=== PATIENT | female | born 1940 | race Caucasian/White ===

== ENCOUNTER → 2017-01-27 | Outpatient (CLI) | payer BC ==
[~2017-01-27] MED LIST: ASCO100061 PO; ASPI81TA28 PO; BISO10TA14 PO; CALC500T PO; CHOL20007 PO; GLUC1CAP33 PO; INDO-22 PO; LOSA100T65 PO; SIMV20TA2 PO
[2017-01-27 15:02] VITALS: BP 154/79; PULSE 61; TEMP 36.8; O2SAT 99
--- NOTE | 2017-01-27 17:19 | Radiation Oncology Follow-Up ---
Radiation Oncology Follow-Up Date of Visit Jan 27, 2017. 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 Sepulveda is a 76 year old female who recently presented with abnormal mammogram on 07/28/2016 which revealed an asymmetry in the right breast and left breast. She subsequently underwent a bilateral diagnostic mammogram and targeted bilateral ultrasound on 08/11/2016 which revealed a persistent focal architectural distortion with possible associated mass in the lower inner right breast. The patient subsequently underwent a bilateral MRI of the breasts on which revealed: "IMPRESSION: ACR BI-RADS CATEGORY 4C: MODERATE SUSPICION FOR MALIGNANCY 1. There is focal architectural distortion identified in the 5:30 to 6:00 middle to posterior right breast with associated abnormal enhancement. This correlates with the focal mammographic distortion and is suspicious for malignancy. Further evaluation with an MRI guided biopsy is recommended. 2. There is also focal linear non-mass enhancement within the left breast retroareolar region that is indeterminate. Currently we are unable to perform bilateral breast MRI biopsy during the same appointment and would recommend biopsy of the right breast focal architectural distortion first, with possible MRI guided biopsy in the left breast pending right breast pathology results. 3. 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 The patient subsequently had a MRI guided biopsy of the left breast lesion on 10/14/2016 which revealed no evidence of cancer. The patient subsequently underwent a lumpectomy and sentinel lymph node biopsy on 10/28/[address] Mane Mcmullen and pathology revealed grade 3 ductal carcinoma in situ that measured up to 16 mm. Pathology revealed non-comedo necrosis present. The margins were negative and the closest margin was 3 mm. The sentinel lymph node was negative. The patient was seen in consultation by Dr. John Bauman for medical oncology who discussed no role for adjuvant imaging hormonal therapy due to the patient's ER/IL negative status. We are now seeing the patient in consultation to discuss the role of adjuvant radiation therapy. Overall, the patient is doing relatively well. She has healed up well from surgery. She underwent a CT simulation and was found to be a candidate for hypo- fractionation. Radiation was completed 12/29/2016 she received 5130 cGy. (Xochitl Keith PA-C) Interim History She's been doing well over this past month. She denies any changes to her breast. She denies any pain or tenderness. She has noted no masses or tenderness no change of the axilla. She's had no swelling of her arm. She has been seen by Dr. Bauman. She saw Dr. Mcmullen and has been discharged. She had no difficulty with her skin following the completion of treatment. She is currently not set up for follow-up mammography. (Xochitl Keith PA-C) Allergies Coded Allergies: Amlodipine (Verified Allergy, Unknown, edema, 10/28/16) Atorvastatin (Verified Allergy, Unknown, joint pain, 10/28/16) Lisinopril (Verified Allergy, Unknown, cough, 10/28/16) Louie (Verified Allergy, Unknown, rash, 10/28/16) Penicillins (Verified Allergy, Unknown, 10/28/16) Home Medications Scheduled Ascorbic Acid (Ascorbic Acid), 1 TAB PO DAILY Aspirin (Aspirin Ec), 81 MG PO DAILY Bisoprolol/Hctz (Ziac 10MG/6.25MG), 1 TAB PO DAILY Calcium Gluconate (Calcium Gluconate), 1 TAB PO DAILY Cholecalciferol (Vitamin D3), 1,000 MG PO DAILY Losartan Potassium (Cozaar), 100 MG PO DAILY Simvastatin (Zocor), 20 MG PO QPM Scheduled PRN Glucosamine-Chondroitin (Glucosamine & Chondroitin 500-400 mg), 1 CAP PO DAILY PRN for JOINT STIFFNESS Indomethacin (Indocin), 25 MG PO TID PRN for GOUT Review of Systems Gastrointestinal: Symptoms: WNL Oral: Symptoms: No Problems Respiratory: Symptoms: WNL Other Respiratory: Gets a dry cough once in a while Urinary: Symptoms: WNL Skin: Symptoms: No Problems Other Skin Symptoms: Patient developed "age spots" 3 on top of breast, 1 post breast Breast: Right Upper Arm Measurement: 26.8 Right Mid Arm Measurement: 23.0 Right Wrist Measurement: 15.2 Left Upper Arm Measurement: 26.8 Left Mid Arm Measurement: 22.5 Left Wrist Measurement: 15.0 Arm Dominence: Right (Xochitl Keith PA-C) Physical Exam Vital Signs Date Time Temp Pulse Resp B/P Pulse Ox O2 Delivery O2 Flow Rate FiO2 01/27/17 15:02 36.8 61 16 154/79 99 Fatigue: None General Appearance: no apparent distress Eyes: normal inspection, EOMI ENT: normal ENT inspection, hearing grossly normal Neck: supple, no adenopathy Respiratory/Chest: lungs clear, no respiratory distress, no accessory muscle use Breast: Breast examination reveals well-healed incisions of the right breast. There are no masses or tenderness and no axillary adenopathy. There are no skin retractions or nipple changes. Using the [place] score cosmesis she has a excellent outcome. Left breast showed no masses or tenderness and no axillary adenopathy. Cardiovascular: regular rate, rhythm, no gallop, no murmur Extremities: no pedal edema Neurologic/Psychiatric: no motor/sensory deficits, alert, normal mood/affect Skin: warm/dry Lymphatic: no adenopathy (Xochitl Keith PA-C) Assessment & Plan Plan: The patient was seen and examined by Dr. Solitario. She'll continue regular follow-up with Dr. Bauman and her primary care physician. We reviewed that she did have breast examinations twice a year. Today we completed a cancer survivorship care plan. A copy of the document was given to the patient. She is also given a survivorship booklet. Follow-up mammography was scheduled. These will be digital diagnostic mammograms. The right side will be done in 2 months and bilateral evaluation and 8 months. We asked her to return to our office in 6 months. She will call if she has a questions or concerns in the interim. (Xochitl Keith PA-C) I agree with note created by Xochitl Keith PA-C. I reviewed the patient's chart and information with her. I have examined and evaluated the patient. I reviewed relevant clinical information and answered the patient's and/or family' s questions. (Veeral. Solitario MD) Total Time In Follow-Up I spent 20 minutes speaking to the patient and performing examination. I spent 20 minutes reviewing information, preparing the survivorship document, and completing this note. (Xochitl Keith PA-C) I spent 5 minutes examining and counseling the patient. (Veeral. Solitario MD) Copy To John Bauman MD; Ludwig Gary M.D. Problem Qualifiers (1) Carcinoma in situ: Carcinoma in situ location: breast Carcinoma in situ of breast type: intraductal Laterality: right Qualified Codes: D05.11 - Intraductal carcinoma in situ of right breast
== END | disposition home or self-care (01) ==
LOC: C.ONC 14:45
PROVIDERS: ATTEND Physician Assistant Medical
DX: Z08 Encounter for follow-up examination after completed treatment for malignant neoplasm (principal); Z92.3 Personal history of irradiation; Z86.000 Personal history of in-situ neoplasm of breast

== ENCOUNTER → 2017-03-02 | Outpatient (CLI) | payer BC ==
[2017-03-02 14:41] LABS: BASO ABS # 0.07 K/uL (0-0.2); COMPLETE YES; EOS % 3.8 %; IG% 0.3 %; LYMPH % 9.2 %; LYMPH ABS # 0.63 K/uL (1.2-3.4); MEAN CELL VOLUME 94.9 fL (80-100); MEAN CORPUSCULAR HEMOGLOBIN 31.4 pg (25-34); MEAN CORPUSCULAR HGB CONC 33.1 g/dl (32-36); MEAN PLATELET VOLUME 9.9 fL (7.4-10.4); MONO % 10.8 %; NEUT % 74.9 %; PLATELET COUNT 247 K/uL (130-400); RED BLOOD COUNT 4.11 M/uL (4.2-5.4); WHITE BLOOD COUNT 6.87 K/uL (4.8-10.8)
[2017-03-02 15:03] LABS: BLOOD UREA NITROGEN 12 mg/dl (7-18); BUN/CREATININE RATIO 11.9 (10-20); CALCIUM 8.9 mg/dl (8.5-10.1); CARBON DIOXIDE 31 mmol/L (21-32); CHLORIDE 106 mmol/L (98-107); GLUCOSE 90 mg/dl (70-99); SODIUM 141 mmol/L (136-145)
[2017-03-02 15:08] LABS: ALB/GLOB RATIO 1.1 (0.9-2); ALKALINE PHOSPHATASE 125 U/L (45-117); ALT/SGPT 23 U/L (12-78); AST/SGOT 17 U/L (15-37)
== END | disposition home or self-care (01) ==
LOC: C.LABBC 09:23
PROVIDERS: ATTEND Internal Medicine Hematology & Oncology
DX: D05.11 Intraductal carcinoma in situ of right breast (principal)

== ENCOUNTER → 2017-03-31 | Outpatient (CLI) | payer BC ==
--- NOTE | 2017-03-31 15:11 | MAMMOGRAPHY REPORT ---
BILATERAL DIGITAL DIAGNOSTIC MAMMOGRAM TOMOSYNTHESIS WITH CAD: 03/31/2017 CLINICAL HISTORY: 77-year-old woman with a personal history of right breast DCIS status post breast conservation treatment, and benign MRI biopsy in the left breast. She presents for bilateral mammog david to establish new baseline. TECHNIQUE: Bilateral breast tomosynthesis in addition to standard 2D mammography was performed. Spo t magnification right CC and ML views were also obtained. Current study was also evaluated with a C omputer Aided Detection (CAD) system. COMPARISON: Comparison is made to exams dated: 10/28/2016 specimen, 10/28/2016 localization, 016 mammogram, 10/14/2016 MRI biopsy, 09/18/2016 mammogram, and 09/18/2016 MRI biopsy - [facility]. BREAST COMPOSITION: The tissue of both breasts is heterogeneously dense, which may obscure small ma sses. FINDINGS: There is expected architectural distortion, density and skin irregularity in the lower inn er quadrant of the right breast, at the site of prior lumpectomy. There is mild right breast skin t hickening most prominent inferiorly, and mild trabecular edema. There are benign rim calcifications in the right breast. No new suspicious mass, architectural distortion or cluster of microcalcifica tions is seen. There are stable post biopsy changes in the left breast, with metallic biopsy marker remaining in pl rishabh. Scattered benign-appearing microcalcifications. No new suspicious mass, architectural distorti on or cluster of microcalcifications is seen. IMPRESSION: ACR-BI-RADS CATEGORY 3: PROBABLY BENIGN 1. Expected post treatment changes in the right breast, without definite mammographic evidence of m alignancy bilaterally. Recommend diagnostic right mammograms and possible ultrasound in 6 months to ensure longer stability after treatment. 2. Also recommend a bilateral breast MRI in April 2017 to ensure stability post MRI guided biopsy in the left breast. These results and recommendations were discussed with the patient at the time of the exam. Approximately 10% of breast cancers are not detected with mammography. A negative mammographic repor t should not delay biopsy if a clinically suggestive mass is present. Rhonda Alvarado M.D. ay/:03/31/2017 14:52:48 Director Of Restaurants: Ilene WILEY(R)(Anastasia), [facility] letter sent: Follow Up Recommended 3 BI-RADS Code: ACR-BI-RADS Category 3: Probably Benign
== END | disposition home or self-care (01) ==
LOC: C.MAMM 12:50
PROVIDERS: ATTEND Physician Assistant Medical
DX: D05.11 Intraductal carcinoma in situ of right breast (principal); Z92.3 Personal history of irradiation

== ENCOUNTER → 2017-05-13 | Outpatient (CLI) | payer BC ==
[~2017-05-13] MED LIST changes: +GADAVIST IV PRN
--- NOTE | 2017-05-13 16:20 | MAMMOGRAPHY REPORT ---
BREAST MRI OF BOTH BREASTS : 05/13/2017 CLINICAL HISTORY: 77-year-old woman presents for a follow-up breast MRI. She has a history of right breast cancer and is 6 months status post breast conservation treatment in the right breast. History of benign left breast MRI guided biopsy in the retroareolar breast. This biopsy was performed in 2015. COMPARISON: Comparison is made to exams dated: 10/28/2016 specimen, 10/28/2016 localization, 10/14/20 16 mammogram, 10/14/2016 MRI biopsy, 09/18/2016 mammogram, and 09/18/2016 MRI biopsy - [facility]. TECHNIQUE: Using a 1.5 Deidre magnet and dedicated breast coil, multisequence axial images were obtain ed through the breasts. After uneventful IV administration of 6 mL of Gadavist, dynamic multiphase c ontrast-enhanced axial images, and sagittal postcontrast were obtained. Temporal subtraction axial i mages and 3-D MIP images are provided. Everything was then reviewed on a 3-D workstation, Archetypes. FINDINGS: There is evidence of prior surgery in the right breast, with a fluid collection in the 6:00 posterior and retroareolar right breast, at the site of prior lumpectomy. There is mild diffuse maryjane ma and skin thickening of the right breast, likely secondary to radiation therapy. No significant ba ckground parenchymal enhancement. No new suspicious enhancing mass, non-mass enhancement, unexpected architectural distortion or suspicious kinetics are seen in the right breast. There is no suspiciou s right axillary, subpectoral or internal mammary lymphadenopathy. There is mild background parenchymal enhancement of the left breast. Susceptibility artifact from th e metallic biopsy marker is seen in the 6:00 middle to anterior left breast, denoting the site of rachel or MRI biopsy which yielded benign pathology. Subtle linear non-mass enhancement is no longer seen a t the site of this biopsy, confirming adequate tissue sampling. No new suspicious enhancing mass, no n-mass enhancement, focal area of architectural distortion or suspicious kinetics is seen in the left breast. No suspicious left axillary, subpectoral or intramammary lymphadenopathy. IMPRESSION: ACR BI-RADS CATEGORY 2: BENIGN 1. Stable post-therapeutic changes in the right breast, without MRI evidence of malignancy. 2. Stable postbiopsy changes in the left breast, without MRI evidence of malignancy. 3. Continuation of close follow-up screening mammography after treatment is recommended. Consider a ddition of annual breast MRI for additional surveillance. The patient will receive written notification of the results. Rhonda Alvarado M.D. ay/:05/13/2017 15:19:53 [employer] Supervisor: travel director, [facility] letter sent: Normal 1/2 BI-RADS Code: ACR BI-RADS Category 2: Benign
== END | disposition home or self-care (01) ==
LOC: C.MRI 10:25
PROVIDERS: ATTEND Physician Assistant Medical
DX: D05.11 Intraductal carcinoma in situ of right breast (principal)

== ENCOUNTER → 2017-08-10 | Outpatient (CLI) | payer BC ==
[~2017-08-10] MED LIST changes: -GADAVIST IV PRN
[2017-08-10 14:13] VITALS: BP 139/78; PULSE 60; TEMP 36.5; O2SAT 100
--- NOTE | 2017-08-10 16:39 | Radiation Oncology Follow-Up ---
Radiation Oncology Follow-Up Date of Visit Aug 10, 2017. 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 Sepulveda is a 76 year old female who recently presented with abnormal mammogram on 07/28/2016 which revealed an asymmetry in the right breast and left breast. She subsequently underwent a bilateral diagnostic mammogram and targeted bilateral ultrasound on 08/11/2016 which revealed a persistent focal architectural distortion with possible associated mass in the lower inner right breast. The patient subsequently underwent a bilateral MRI of the breasts on which revealed: "IMPRESSION: ACR BI-RADS CATEGORY 4C: MODERATE SUSPICION FOR MALIGNANCY 1. There is focal architectural distortion identified in the 5:30 to 6:00 middle to posterior right breast with associated abnormal enhancement. This correlates with the focal mammographic distortion and is suspicious for malignancy. Further evaluation with an MRI guided biopsy is recommended. 2. There is also focal linear non-mass enhancement within the left breast retroareolar region that is indeterminate. Currently we are unable to perform bilateral breast MRI biopsy during the same appointment and would recommend biopsy of the right breast focal architectural distortion first, with possible MRI guided biopsy in the left breast pending right breast pathology results. 3. 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 The patient subsequently had a MRI guided biopsy of the left breast lesion on 10/14/2016 which revealed no evidence of cancer. The patient subsequently underwent a lumpectomy and sentinel lymph node biopsy on 10/28/[address] Mane Mcmullen and pathology revealed grade 3 ductal carcinoma in situ that measured up to 16 mm. Pathology revealed non-comedo necrosis present. The margins were negative and the closest margin was 3 mm. The sentinel lymph node was negative. The patient was seen in consultation by Dr. John Bauman for medical oncology who discussed no role for adjuvant imaging hormonal therapy due to the patient's ER/WV negative status. We are now seeing the patient in consultation to discuss the role of adjuvant radiation therapy. Overall, the patient is doing relatively well. She has healed up well from surgery. She underwent a CT simulation and was found to be a candidate for hypo- fractionation. Radiation was completed 12/29/2016 she received 5130 cGy Interim History She's been doing well over the past 6 months. She has occasional mild ache in the area of the axilla. She gives of some pain level II. This is noted in the morning and then quickly resolves. This does not require any prescriptive or nzzr-sss-cahjnbl pain medication. She is noted no masses no change of the axilla. She's had no swelling of her arm. She is up-to-date on mammography as well as MRIs. Allergies Coded Allergies: Amlodipine (Verified Allergy, Unknown, edema, 10/28/16) Atorvastatin (Verified Allergy, Unknown, joint pain, 10/28/16) Lisinopril (Verified Allergy, Unknown, cough, 10/28/16) Louie (Verified Allergy, Unknown, rash, 10/28/16) Penicillins (Verified Allergy, Unknown, 10/28/16) Home Medications Scheduled Aspirin (Aspirin Ec), 81 MG PO DAILY Bisoprolol/Hctz (Ziac 10MG/6.25MG), 1 TAB PO DAILY Cholecalciferol (Vitamin D3), 1,000 MG PO DAILY Losartan Potassium (Cozaar), 100 MG PO DAILY Simvastatin (Zocor), 20 MG PO QPM Scheduled PRN Glucosamine-Chondroitin (Glucosamine & Chondroitin 500-400 mg), 1 CAP PO DAILY PRN for JOINT STIFFNESS Indomethacin (Indocin), 25 MG PO TID PRN for GOUT Review of Systems Gastrointestinal: Symptoms: WNL Oral: Symptoms: No Problems Respiratory: Symptoms: WNL Urinary: Symptoms: WNL Skin: Symptoms: No Problems Breast: Right Upper Arm Measurement: 28.0 Right Mid Arm Measurement: 24.0 Right Wrist Measurement: 15.0 Left Upper Arm Measurement: 27.0 Left Mid Arm Measurement: 23.0 Left Wrist Measurement: 14.8 Arm Dominence: Right Physical Exam Vital Signs Date Time Temp Pulse Resp B/P (MAP) Pulse Ox O2 Delivery O2 Flow Rate FiO2 08/10/17 14:13 36.5 60 16 139/78 100 Fatigue: None General Appearance: no apparent distress Eyes: normal inspection, EOMI ENT: normal ENT inspection, hearing grossly normal Neck: no adenopathy, thyroid normal Respiratory/Chest: lungs clear, no respiratory distress, no accessory muscle use Breast: Breast examination reveals well-healed incisions of the right breast. There are no masses or tenderness and no axillary adenopathy. There are no skin retractions or nipple changes. Using the Wilton score cosmesis she has a in excellent outcome. Left breast showed no masses or tenderness and no axillary adenopathy. Abdomen: non tender Extremities: no pedal edema Neurologic/Psychiatric: no motor/sensory deficits, alert, normal mood/affect Skin: warm/dry Lymphatic: no adenopathy Laboratory Studies Test 07/30/17 14:07 White Blood Count 8.22 K/uL (4.8-10.8) Red Blood Count 4.01 M/uL (4.2-5.4) Hemoglobin 12.2 g/dL (12.0-16.0) Hematocrit 36.5 % (37-47) Mean Corpuscular Volume 91.0 fL (80-100) Mean Corpuscular Hemoglobin 30.4 pg (25-34) Mean Corpuscular Hemoglobin Concent 33.4 g/dl (32-36) Platelet Count 281 K/uL (130-400) Mean Platelet Volume 9.6 fL (7.4-10.4) Neutrophils (%) (Auto) 74.6 % Lymphocytes (%) (Auto) 11.1 % Monocytes (%) (Auto) 9.9 % Eosinophils (%) (Auto) 3.6 % Basophils (%) (Auto) 0.7 % Neutrophils # (Auto) 6.13 K/uL (1.4-6.5) Lymphocytes # (Auto) 0.91 K/uL (1.2-3.4) Monocytes # (Auto) 0.81 K/uL (0.11-0.59) Eosinophils # (Auto) 0.30 K/uL (0-0.5) Basophils # (Auto) 0.06 K/uL (0-0.2) RDW Standard Deviation 42.3 fL (36.4-46.3) RDW Coefficient of Variation 12.6 % (11.5-14.5) Immature Granulocyte % (Auto) 0.1 % Immature Granulocyte # (Auto) 0.01 K/uL (0.00-0.02) Sodium Level 139 mmol/L (136-145) Potassium Level 3.8 mmol/L (3.5-5.1) Chloride Level 105 mmol/L (98-107) Carbon Dioxide Level 28 mmol/L (21-32) Anion Gap 6.0 mmol/L (3-11) Blood Urea Nitrogen 16 mg/dl (7-18) Creatinine 0.76 mg/dl (0.60-1.20) Estimated GFR () 88.9 Estimated GFR (Non- 76.7 BUN/Creatinine Ratio 20.9 (10-20) Random Glucose 121 mg/dl (70-99) Calcium Level 9.5 mg/dl (8.5-10.1) Total Bilirubin 0.4 mg/dl (0.2-1) Aspartate Amino Transferase (AST) 16 U/L (15-37) Alanine Aminotransferase (ALT) 19 U/L (12-78) Alkaline Phosphatase 124 U/L (45-117) Lactate Dehydrogenase 173 U/L (84-246) Total Protein 6.5 gm/dl (6.4-8.2) Albumin 3.5 gm/dl (3.4-5.0) Globulin 3.0 gm/dl (2.5-4.0) Albumin/Globulin Ratio 1.2 (0.9-2) Additional Studies Patient: Anastasia SEPULVEDA [facility] Rec: [id number] Address1: [address] Address2: Acct ID: [id number] Date: 1940 Sex: F Ref Phy: Ludwig Gary M.D. Att Phy: Xochitl Keith PA-C Savannah Phy: Ludwig Gary M.D. Inter Phy: Rhonda Alvarado MD [facility]: [place] [address] SC: C.MAMM Report #: [id number] Research Administrator: MARKY Diagnosis: HX OF RT BREAST CA S/P RADIATION Service Date: 03/31/17 MNE: [id number] Ordering Dr: Xochitl Keith PA-C CC: Xochitl Keith PA-C CONF: DICTATED BY: Rhonda Alvarado MD MAMMOGRAPHY REPORT BILATERAL DIGITAL DIAGNOSTIC MAMMOGRAM TOMOSYNTHESIS WITH CAD: 03/31/2017 CLINICAL HISTORY: 77-year-old woman with a personal history of right breast DCIS status post breast conservation treatment, and benign MRI biopsy in the left breast. She presents for bilateral mammograms to establish new baseline. TECHNIQUE: Bilateral breast tomosynthesis in addition to standard 2D mammography was performed. Spot magnification right CC and ML views were also obtained. Current study was also evaluated with a Computer Aided Detection (CAD ) system. COMPARISON: Comparison is made to exams dated: 10/28/2016 specimen, 10/28/2016 localization, 10/14/2016 mammogram, 10/14/2016 MRI biopsy, 09/18/2016 mammogram, and 09/18/2016 MRI biopsy - [facility]. BREAST COMPOSITION: The tissue of both breasts is heterogeneously dense, which may obscure small masses. FINDINGS: There is expected architectural distortion, density and skin irregularity in the lower inner quadrant of the right breast, at the site of prior lumpectomy. There is mild right breast skin thickening most prominent inferiorly, and mild trabecular edema. There are benign rim calcifications in the right breast. No new suspicious mass, architectural distortion or cluster of microcalcifications is seen. There are stable post biopsy changes in the left breast, with metallic biopsy marker remaining in place. Scattered benign-appearing microcalcifications. No new suspicious mass, architectural distortion or cluster of microcalcifications is seen. IMPRESSION: ACR-BI-RADS CATEGORY 3: PROBABLY BENIGN 1. Expected post treatment changes in the right breast, without definite mammographic evidence of malignancy bilaterally. Recommend diagnostic right mammograms and possible ultrasound in 6 months to ensure longer stability after treatment. 2. Also recommend a bilateral breast MRI in April 2017 to ensure stability post MRI guided biopsy in the left breast. These results and recommendations were discussed with the patient at the time of the exam. Approximately 10% of breast cancers are not detected with mammography. A negative mammographic report should not delay biopsy if a clinically suggestive mass is present. Rhonda Alvarado M.D. ay/:03/31/2017 14:52:48 Spring Intern: Ilene BLANTON)(Anastasia), [facility] letter sent: Follow Up Recommended 3 BI-RADS Code: ACR-BI-RADS Category 3: Probably Benign Dictated by: Rhonda Alvarado MD Signed by: Rhonda Alvarado MD Patient: Anastasia SEPULVEDA [facility] Rec: [id number] Address1: [address] Address2: Acct ID: [id number] Date: 1940 Sex: F Ref Phy: Xochitl Keith PA-C Att Phy: Xochitl Keith PA-C Savannah Phy: Ludwig Gary M.D. Inter Phy: Rhonda Alvarado MD [facility]: [place] [address] SC: C.MRI Report #: [id number] Research Administrator: TERESE Diagnosis: HX BREAST CA Service Date: 05/13/17 MNE: [id number] Ordering Dr: Xochitl Keith PA-C CC: Xochitl Keith PA-C CONF: DICTATED BY: Rhonda Alvarado MD MAMMOGRAPHY REPORT BREAST MRI OF BOTH BREASTS : 05/13/2017 CLINICAL HISTORY: 77-year-old woman presents for a follow-up breast MRI. She has a history of right breast cancer and is 6 months status post breast conservation treatment in the right breast. History of benign left breast MRI guided biopsy in the retroareolar breast. This biopsy was performed in October 2016. COMPARISON: Comparison is made to exams dated: 10/28/2016 specimen, 10/28/2016 localization, 10/14/2016 mammogram, 10/14/2016 MRI biopsy, 09/18/2016 mammogram, and 09/18/2016 MRI biopsy - [facility]. TECHNIQUE: Using a 1.5 Deidre magnet and dedicated breast coil, multisequence axial images were obtained through the breasts. After uneventful IV administration of 6 mL of Gadavist, dynamic multiphase contrast-enhanced axial images, and sagittal postcontrast were obtained. Temporal subtraction axial images and 3-D MIP images are provided. Everything was then reviewed on a 3-D workstation, [employer]. FINDINGS: There is evidence of prior surgery in the right breast, with a fluid collection in the 6:00 posterior and retroareolar right breast, at the site of prior lumpectomy. There is mild diffuse edema and skin thickening of the right breast, likely secondary to radiation therapy. No significant background parenchymal enhancement. No new suspicious enhancing mass, non-mass enhancement , unexpected architectural distortion or suspicious kinetics are seen in the right breast. There is no suspicious right axillary, subpectoral or internal mammary lymphadenopathy. There is mild background parenchymal enhancement of the left breast. Susceptibility artifact from the metallic biopsy marker is seen in the 6:00 middle to anterior left breast, denoting the site of prior MRI biopsy which yielded benign pathology. Subtle linear non-mass enhancement is no longer seen at the site of this biopsy, confirming adequate tissue sampling. No new suspicious enhancing mass, non-mass enhancement, focal area of architectural distortion or suspicious kinetics is seen in the left breast. No suspicious left axillary, subpectoral or intramammary lymphadenopathy. IMPRESSION: ACR BI-RADS CATEGORY 2: BENIGN 1. Stable post-therapeutic changes in the right breast, without MRI evidence of malignancy. 2. Stable postbiopsy changes in the left breast, without MRI evidence of malignancy. 3. Continuation of close follow-up screening mammography after treatment is recommended. Consider addition of annual breast MRI for additional surveillance. The patient will receive written notification of the results. Rhonda Alvarado M.D. ay/:05/13/2017 15:19:53 Spring Intern: spot washer, [facility] letter sent: Normal 1/2 BI-RADS Code: ACR BI-RADS Category 2: Benign Dictated by: Rhonda Alvarado MD Signed by: Rhonda Alvarado MD Assessment & Plan Plan: Continue with scheduled mammography. She has a mammogram scheduled for September of the right breast. There is been recommendation for continued annual MRI. This will be due after May 13. An order was written and this will be scheduled. Continue regular follow-up with the primary care physician and Dr. Bauman. She was seen and examined by Dr. Solitario. We asked her to return to our office in 1 year. She may call if she has any questions or concerns in the interim. Assessment & Plan (Attending) ADDENDUM: I agree with note created by Xochitl Keith PA-C. I reviewed the patient's chart and information with her. I have examined and evaluated the patient. I reviewed relevant clinical information and answered the patient's and /or family's questions. NUTTER UP Total Time In Follow-Up I spent 20 minutes speaking to the patient and performing examination. I spent 15 minutes reviewing information in completing this note. AK Total Time (Attending) In Follow-Up I spent 15 minutes examining and counseling the patient. NUTTER UP Copy To John Bauman MD; Ludwig Gary M.D. Problem Qualifiers (1) Carcinoma in situ: Carcinoma in situ location: breast Carcinoma in situ of breast type: intraductal Laterality: right Qualified Codes: D05.11 - Intraductal carcinoma in situ of right breast
== END | disposition home or self-care (01) ==
LOC: C.ONC 14:05
PROVIDERS: ATTEND Physician Assistant Medical
DX: Z08 Encounter for follow-up examination after completed treatment for malignant neoplasm (principal); Z92.3 Personal history of irradiation; Z85.3 Personal history of malignant neoplasm of breast

== ENCOUNTER → 2017-09-29 | Outpatient (CLI) | payer BC ==
[~2017-09-29] MED LIST changes: -ASCO100061 PO; -CALC500T PO
--- NOTE | 2017-10-01 08:15 | MAMMOGRAPHY REPORT ---
BILATERAL DIGITAL DIAGNOSTIC MAMMOGRAM TOMOSYNTHESIS WITH CAD: 09/29/2017 CLINICAL HISTORY: 77-year-old woman presents for evaluation of both breasts. She has a personal hist ory of right breast cancer status post lumpectomy performed 10/28/2016 and subsequent radiation thera py. Benign MRI guided biopsy in the left breast. TECHNIQUE: Bilateral breast tomosynthesis in addition to standard 2D mammography was performed. Curre nt study was also evaluated with a Computer Aided Detection (CAD) system. COMPARISON: Comparison is made to exams dated: 03/31/2017 mammogram, 10/28/2016 specimen, 10/28/2016 localization, 10/14/2016 mammogram, 09/18/2016 mammogram, and 08/11/2016 mammogram - [facility]. BREAST COMPOSITION: The tissue of both breasts is heterogeneously dense, which may obscure small mas ses. FINDINGS: A linear scar marker overlies the lower inner posterior right breast, denoting the skin carin gical scar from prior surgery. There is expected architectural distortion at the lumpectomy bed. No unexpected architectural distortion, obvious new mass, asymmetry or suspicious microcalcifications a re seen in the right breast. There is mild diffuse skin thickening, likely related to prior treatmen t. A few benign rim calcifications. There is a stable dumbbell-shaped biopsy marker clip in the central left breast. A few scattered janiya ign-appearing microcalcifications. No new suspicious mass, architectural distortion or cluster of mi crocalcifications is seen in the left breast. IMPRESSION: ACR-BI-RADS CATEGORY 3: PROBABLY BENIGN Stable posttreatment changes in the right breast and stable postbiopsy changes in left breast. No de finite mammographic evidence of malignancy bilaterally. Recommend bilateral diagnostic tomosynthesis mammograms in 2017, to reassess postsurgical and postbiopsy changes and ensure stability, a nd the patient will also be due for annual breast MRI for additional surveillance around the same macario e. These results and recommendations were discussed with the patient at the time of the exam. She tenta tively scheduled the follow-up appointments prior to leaving our department. Approximately 10% of breast cancers are not detected with mammography. A negative mammographic report should not delay biopsy if a clinically suggestive mass is present. Rhonda Alvarado M.D. ay/:09/29/2017 12:46:42 [employer]: Ilene Delacruz RT(R)(M), [facility] letter sent: Follow Up Recommended 3 BI-RADS Code: ACR-BI-RADS Category 3: Probably Benign
== END | disposition home or self-care (01) ==
LOC: C.MAMM 10:16
PROVIDERS: ATTEND Physician Assistant Medical
DX: Z08 Encounter for follow-up examination after completed treatment for malignant neoplasm (principal); Z85.3 Personal history of malignant neoplasm of breast; Z92.3 Personal history of irradiation; Z98.890 Other specified postprocedural states

== ENCOUNTER 2017-12-17 12:56 | Emergency (ER) | payer BC ==
[~2017-12-17] VITALS: Ht 154.9 cm; Wt 64.0 kg
[~2017-12-17 12:56] MED LIST changes: -BISO10TA14 PO; -SIMV20TA2 PO
[2017-12-17 13:01] VITALS: TEMP 36.4; Ht 154.9 cm; Wt 64.0 kg
[2017-12-17 13:31] VITALS: O2SAT 100
[2017-12-17] MEDS ORDERED: CZR50 PO (13:37)
[2017-12-17] MEDS ORDERED: OMEP40CA41 PO (13:39)
[2017-12-17] MEDS ORDERED: HYG/25 PO (13:39)
[2017-12-17 13:53] LABS: BASO % 1.2 %; BASO ABS # 0.09 K/uL (0-0.2); EOS ABS # 0.55 K/uL (0-0.5); HEMATOCRIT 31.5 % (37-47); HEMOGLOBIN 9.8 g/dL (12.0-16.0); IG# 0.01 K/uL (0.00-0.02); LYMPH % 12.5 %; LYMPH ABS # 0.98 K/uL (1.2-3.4); MEAN CELL VOLUME 79.7 fL (80-100); MEAN CORPUSCULAR HEMOGLOBIN 24.8 pg (25-34); MEAN CORPUSCULAR HGB CONC 31.1 g/dl (32-36); MEAN PLATELET VOLUME 9.5 fL (7.4-10.4); MONO % 10.4 %; MONO ABS # 0.81 K/uL (0.11-0.59); NEUT % 68.8 %; NEUT ABS # 5.38 K/uL (1.4-6.5); PLATELET COUNT 310 K/uL (130-400); RED CELL DISTRIBUTION WIDTH SD 40.9 fL (36.4-46.3); WHITE BLOOD COUNT 7.82 K/uL (4.8-10.8)
--- NOTE | 2017-12-17 13:53 | DIAGNOSTIC IMAGING REPORT ---
CHEST 2 VIEWS ROUTINE CLINICAL HISTORY: Shortness of breath COMPARISON STUDY: No previous studies for comparison. FINDINGS: The cardiac and mediastinal contours are normal. There is no evidence of focal pulmonary consolidation. There is no evidence of failure. No pleural effusions are visualized.[ A 5 mm right apical opacity is felt to represent a summation. Surgical clips project over the right breast. IMPRESSION: No active disease in the chest. Electronically signed by: Fred Atkinson M.D. 12/17/2017 1:52 PM Dictated Date/Time: 12/17/2017 1:51 PM
[2017-12-17 14:04] LABS: INR 0.9 (0.9-1.1); PTT PATIENT 20.6 SECONDS (21.0-31.0)
[2017-12-17 14:10] LABS: BLOOD UREA NITROGEN 18 mg/dl (7-18); CALCIUM 9.3 mg/dl (8.5-10.1); CARBON DIOXIDE 29 mmol/L (21-32); CREATININE 0.88 mg/dl (0.60-1.20); GLUCOSE 109 mg/dl (70-99); POTASSIUM 3.4 mmol/L (3.5-5.1); SODIUM 137 mmol/L (136-145)
[2017-12-17] MEDS ORDERED: OPTIRAY 320 IV PRN (14:15)
--- NOTE | 2017-12-17 14:38 | DIAGNOSTIC IMAGING REPORT ---
CT ANGIOGRAM OF THE CHEST CLINICAL HISTORY: Shortness of breath and elevated d-dimer COMPARISON STUDY: Chest x-ray dated to TECHNIQUE: Following the IV administration of 81 mL of Optiray-320, CT angiogram of the thorax was performed from the thoracic inlet to the lung bases utilizing the pulmonary embolus protocol. Images are reviewed in the axial, sagittal, and coronal planes. IV contrast was administered without complication. MIP imaging was performed. A dose lowering technique was utilized adhering to the principles of ALARA. CT DOSE: 230.61 mGy.cm FINDINGS: No pathologically enlarged axillary mediastinal or hilar lymph nodes were visualized. There was no evidence of thoracic aortic dilatation. There were no pulmonary artery filling defects to indicate acute pulmonary embolism. No pleural effusions are visualized. There is pulmonary emphysema. There is an 11 mm groundglass right apical pulmonary nodule. There is a prominent hiatal hernia. IMPRESSION: 1. No evidence of acute pulmonary embolism 2. Pulmonary emphysema 3. 11 mm groundglass right upper lobe pulmonary nodule. 3-[address] follow-up is recommended. Please refer to below summary of Fleischner criteria recommendations for follow-up of incidental CT nodules (Bg Taylor, Guidelines for management of small pulmonary nodules detected on CT scans: A statement from the Fleischner Society, Radiology 237: [phone].) SOLID NODULES Solitary nodule size: <6 mm * low risk patients: no follow-up needed * high risk patients: optional CT at 12 months Solitary nodule size: 6-8 mm * low risk patients: follow-up at 6-12 months, then consider further follow-up at 18-24 months * high risk patients: initial follow-up CT at 6-12 months and then at 18-24 months if no change Solitary nodule size: >8 mm * either low or high risk patients - consider follow-up CT at 3 months, and/or CT-PET, and/or biopsy Multiple nodules size: <6 mm * low risk patients: no routine follow-up * high risk patients: optional CT at 12 months Multiple nodules size: 6-8 mm * low risk patients: follow-up at 3-6 months, then consider further follow-up at 18-24 months * high risk patients: follow-up at 3-6 months, then at 18-24 months if no change Multiple nodules size: >8 mm * low risk patients: follow-up at 3-6 months, then consider further follow-up at 18-24 months * high risk patients: follow-up at 3-6 months, then at 18-24 months if no change Note: newly detected indeterminate nodule in persons 35 years of age or older. * low risk patients: minimal or absent history of smoking and/or other known risk factors * high risk patients: history of smoking or of other known risk factors (e.g. first degree relative with lung cancer, or exposure to asbestos, radon, uranium) * if a nodule up to 8 mm is partly solid or is ground glass further follow-up is required after 24 months to exclude possible slow growing adenocarcinoma (EDDI) SUBSOLID NODULES Solitary pure ground-glass nodule * nodule size <6 mm - no CT follow-up required * nodule size >=6 mm - follow-up CT at 6-12 months, then every 2 years until 5 years Solitary part-solid nodule * nodule size <6 mm - no CT follow-up required * nodule size >=6 mm - follow-up CT at 3-6 months. If unchanged, and solid component remains <6 mm, then annual follow-up for 5 years Multiple subsolid nodules * nodule size <6 mm - follow-up CT at 3-6 months, consider further follow-up at 2 and 4 years if stable * nodule size >=6 mm - follow-up CT at 3-6 months, subsequent management based on the most suspicious nodule(s) Electronically signed by: Fred Atkinson M.D. 12/17/2017 2:37 PM Dictated Date/Time: 12/17/2017 2:32 PM
[2017-12-17] MEDS ORDERED: BISO10TA14 PO (17:40)
[2017-12-17] MEDS ORDERED: SIMV20TA2 PO (17:40)
--- NOTE | 2017-12-17 17:54 | EMERGENCY ROOM VISIT NOTE ---
History Report prepared by Eron: Liz Benedict Under the Supervision of: Dr. Severiano Moreno M.D. First contact with patient: 13:10 Chief Complaint: ABNORMAL LABS Stated Complaint: LOW HEMOGLOBIN, BLEEDING, SLIDING HERNIA W/EROSIM History of Present Illness The patient is a 77 year old female who presents to the Emergency Room with complaints of persistent black stools starting 2-3 days ago. The patient was sent to the ED by Dr. Hua, her professor of french. She reports SOB and fatigue with going up the steps which she has never experienced before. She has had a dry cough. She denies any chest pain or LOC. She did take some Pepto Bismol yesterday. She has been putting more pillows behind her back for reflux. She is on low dose aspirin. She denies any recent travel, hormone use, or recent surgery. The patient has a history of anemia. She states that her hemoglobin is down to 9 from 14 one year ago. She had an endoscopy last week which showed a sliding hiatal hernia with lesions. She had a stool sample tested which was fine. She has a history of breast CA which was contained. She had a lumpectomy and radiation. Source of History: patient Onset: 2-3 days ago Position: other (global) Quality: other (black stools) Timing: other (persistent) Associated Symptoms: + SOB, + abdominal pain, + fatigue, No LOC, No chest pain Review of Systems See HPI for pertinent positives and negatives. A total of ten systems were reviewed and were otherwise negative. Past Medical & Surgical Medical Problems: (1) Carcinoma in situ (2) Hypertension Family History Heart disease Hypertension Social History Smoking Status: Never Smoker Marital Status: Housing Status: lives with significant other Occupation Status: retired Current/Historical Medications Scheduled Bisoprolol/Hctz (Ziac 10MG/6.25MG), 1 TAB PO DAILY Chlorthalidone (Hygroton), 25 MG PO DAILY Cholecalciferol (Vitamin D3), 1,000 MG PO DAILY Losartan Potassium (Losartan Potassium), 50 MG PO DAILY Omeprazole (Prilosec), 40 MG PO BID Simvastatin (Zocor), 20 MG PO QPM Allergies Coded Allergies: Amlodipine (Verified Allergy, Unknown, edema, 12/17/17) Atorvastatin (Verified Allergy, Unknown, joint pain, 12/17/17) Lisinopril (Verified Allergy, Unknown, cough, 12/17/17) S[place]akwa (Verified Allergy, Unknown, rash, 12/17/17) Penicillins (Verified Allergy, Unknown, 12/17/17) Physical Exam Vital Signs Date Time Temp Pulse Resp B/P (MAP) Pulse Ox O2 Delivery O2 Flow Rate FiO2 12/17/17 17:58 65 18 158/78 100 12/17/17 17:10 64 12/17/17 16:45 63 141/76 100 12/17/17 15:08 65 18 131/80 100 Room Air 12/17/17 13:38 64 12/17/17 13:31 100 Room Air 12/17/17 13:01 36.4 64 18 157/65 100 Room Air Physical Exam Physical Exam GENERAL: She is oriented to person, place, and time. She appears well- developed and well-nourished. She does not appear distressed. ____ HENT: Exam performed. Head: Normocephalic and atraumatic. Right Ear: External ear normal. No mastoid tenderness. Left Ear: External ear normal. No mastoid tenderness. Mouth/Throat: The oropharynx is clear and moist. No trismus in the jaw. No dental abscesses or uvula swelling. No oropharyngeal exudate or tonsillar abscesses. ____ EYES: Conjunctivae and EOM are normal. Pupils are equal, round, and reactive to light. Right eye exhibits no discharge. Left eye exhibits no discharge. No scleral icterus. ____ NECK: Normal range of motion. Neck supple. No JVD present. No spinous process tenderness present. No carotid bruit present. No rigidity. No tracheal deviation and normal range of motion present. No Brudzinski's sign and no Kernig 's sign noted. ____ CV: Normal rate, regular rhythm, normal heart sounds and intact distal pulses. There is no peripheral edema. Palpable radial pulses bue. ____ PULM/CHEST: Effort normal and breath sounds normal. No respiratory distress. No stridor. She has no wheezes. She has no rales. Chest Wall: She exhibits no tenderness. ____ ABD: The abdomen is soft. Bowel sounds are normal. She has no distension. No mass is present. There is no tenderness. There is no rebound, no guarding, no Campos's sign and no tenderness at McBurney's point. Rovsig negative RECTAL: No bright red blood per rectum. Hemoccult negative. MUSC/SKEL: Normal range of motion. There is no peripheral edema, tenderness or deformity. LYMPH: No cervical adenopathy. ____ NEURO: She is alert and oriented to person, place, and time. She has normal strength. No cranial nerve deficit or sensory deficit. Coordination and gait normal. GCS eye subscore is 4. GCS verbal subscore is 5. GCS motor subscore is 6. cerbellar tests wnl. ____ SKIN: Skin is warm and dry. She is not diaphoretic. ____ PSYCH: She has a normal mood and affect. Her behavior is normal. Judgment and thought content normal. ____ Medical Decision & Procedures ER Provider Diagnostic Interpretation: Xray results as stated below per my and radiologist interpretation. Radiology results as stated below per my review and radiologist interpretation: CHEST 2 VIEWS ROUTINE CLINICAL HISTORY: Shortness of breath COMPARISON STUDY: No previous studies for comparison. FINDINGS: The cardiac and mediastinal contours are normal. There is no evidence of focal pulmonary consolidation. There is no evidence of failure. No pleural effusions are visualized.[ A 5 mm right apical opacity is felt to represent a summation. Surgical clips project over the right breast. IMPRESSION: No active disease in the chest. Electronically signed by: Fred Atkinson M.D. 12/17/2017 1:52 PM Dictated Date/Time: 12/17/2017 1:[address] ANGIOGRAM OF THE CHEST CLINICAL HISTORY: Shortness of breath and elevated d-dimer COMPARISON STUDY: Chest x-ray dated to 91 TECHNIQUE: Following the IV administration of 81 mL of [id number]-320, CT angiogram of the thorax was performed from the thoracic inlet to the lung bases utilizing the pulmonary embolus protocol. Images are reviewed in the axial, sagittal, and coronal planes. IV contrast was administered without complication. MIP imaging was performed. A dose lowering technique was utilized adhering to the principles of ALARA. CT DOSE: 230.61 mGy.cm FINDINGS: No pathologically enlarged axillary mediastinal or hilar lymph nodes were visualized. There was no evidence of thoracic aortic dilatation. There were no pulmonary artery filling defects to indicate acute pulmonary embolism. No pleural effusions are visualized. There is pulmonary emphysema. There is an 11 mm groundglass right apical pulmonary nodule. There is a prominent hiatal hernia. IMPRESSION: 1. No evidence of acute pulmonary embolism 2. Pulmonary emphysema 3. 11 mm groundglass right upper lobe pulmonary nodule. 3-[address] follow-up is recommended. Please refer to below summary of Fleischner criteria recommendations for follow-up of incidental CT nodules (Bg Taylor, Guidelines for management of small pulmonary nodules detected on CT scans: A statement from the Fleischner Society, Radiology 237: [phone].) SOLID NODULES Solitary nodule size: <6 mm * low risk patients: no follow-up needed * high risk patients: optional CT at 12 months Solitary nodule size: 6-8 mm * low risk patients: follow-up at 6-12 months, then consider further follow-up at 18-24 months * high risk patients: initial follow-up CT at 6-12 months and then at 18-24 months if no change Solitary nodule size: >8 mm * either low or high risk patients - consider follow-up CT at 3 months, and/or CT-PET, and/or biopsy Multiple nodules size: <6 mm * low risk patients: no routine follow-up * high risk patients: optional CT at 12 months Multiple nodules size: 6-8 mm * low risk patients: follow-up at 3-6 months, then consider further follow-up at 18-24 months * high risk patients: follow-up at 3-6 months, then at 18-24 months if no change Multiple nodules size: >8 mm * low risk patients: follow-up at 3-6 months, then consider further follow-up at 18-24 months * high risk patients: follow-up at 3-6 months, then at 18-24 months if no change Note: newly detected indeterminate nodule in persons 35 years of age or older. * low risk patients: minimal or absent history of smoking and/or other known risk factors * high risk patients: history of smoking or of other known risk factors (e.g. first degree relative with lung cancer, or exposure to asbestos, radon, uranium) * if a nodule up to 8 mm is partly solid or is ground glass further follow-up is required after 24 months to exclude possible slow growing adenocarcinoma (EDDI) SUBSOLID NODULES Solitary pure ground-glass nodule * nodule size <6 mm - no CT follow-up required * nodule size >=6 mm - follow-up CT at 6-12 months, then every 2 years until 5 years Solitary part-solid nodule * nodule size <6 mm - no CT follow-up required * nodule size >=6 mm - follow-up CT at 3-6 months. If unchanged, and solid component remains <6 mm, then annual follow-up for 5 years Multiple subsolid nodules * nodule size <6 mm - follow-up CT at 3-6 months, consider further follow-up at 2 and 4 years if stable * nodule size >=6 mm - follow-up CT at 3-6 months, subsequent management based on the most suspicious nodule(s) Electronically signed by: Fred Atkinson M.D. 12/17/2017 2:37 PM Dictated Date/Time: 12/17/2017 2:32 PM Laboratory Results 12/17/17 13:35 Red Blood Count 3.95, Mean Corpuscular Volume 79.7, Mean Corpuscular Hemoglobin 24.8, Mean Corpuscular Hemoglobin Concent 31.1, Mean Platelet Volume 9.5, Neutrophils (%) (Auto) 68.8, Lymphocytes (%) (Auto) 12.5, Monocytes (%) (Auto) 10.4, Eosinophils (%) (Auto) 7.0, Basophils (%) (Auto) 1.2, Neutrophils # (Auto ) 5.38, Lymphocytes # (Auto) 0.98, Monocytes # (Auto) 0.81, Eosinophils # (Auto ) 0.55, Basophils # (Auto) 0.09 12/17/17 13:35 Test 12/17/17 13:35 12/17/17 16:29 White Blood Count 7.82 K/uL (4.8-10.8) Red Blood Count 3.95 M/uL (4.2-5.4) Hemoglobin 9.8 g/dL (12.0-16.0) Hematocrit 31.5 % (37-47) Mean Corpuscular Volume 79.7 fL (80-100) Mean Corpuscular Hemoglobin 24.8 pg (25-34) Mean Corpuscular Hemoglobin Concent 31.1 g/dl (32-36) Platelet Count 310 K/uL (130-400) Mean Platelet Volume 9.5 fL (7.4-10.4) Neutrophils (%) (Auto) 68.8 % Lymphocytes (%) (Auto) 12.5 % Monocytes (%) (Auto) 10.4 % Eosinophils (%) (Auto) 7.0 % Basophils (%) (Auto) 1.2 % Neutrophils # (Auto) 5.38 K/uL (1.4-6.5) Lymphocytes # (Auto) 0.98 K/uL (1.2-3.4) Monocytes # (Auto) 0.81 K/uL (0.11-0.59) Eosinophils # (Auto) 0.55 K/uL (0-0.5) Basophils # (Auto) 0.09 K/uL (0-0.2) RDW Standard Deviation 40.9 fL (36.4-46.3) RDW Coefficient of Variation 14.0 % (11.5-14.5) Immature Granulocyte % (Auto) 0.1 % Immature Granulocyte # (Auto) 0.01 K/uL (0.00-0.02) Prothrombin Time 9.9 SECONDS (9.0-12.0) Prothromb Time International Ratio 0.9 (0.9-1.1) Activated Partial Thromboplast Time 20.6 SECONDS (21.0-31.0) Partial Thromboplastin Ratio 0.8 D-Dimer 580 ug/L FEU (0-500) Anion Gap 4.0 mmol/L (3-11) Est Creatinine Clear Calc Drug Dose 47.3 ml/min Estimated GFR () 74.5 Estimated GFR (Non- 64.3 BUN/Creatinine Ratio 20.7 (10-20) Calcium Level 9.3 mg/dl (8.5-10.1) Pro-B-Type Natriuretic Peptide 238 pg/ml (0-900) Troponin I < 0.015 ng/ml (0-0.045) Laboratory results reviewed by me ECG Indication: SOB/dyspnea Rate (beats per minute): 62 Rhythm: sinus rhythm Findings: no acute ischemic change, no ectopy, other (ND, QRS, and QTc wnl, no ST elevation or ST depression) Change: Patient's electrocardiogram was interpreted by me. ED Course 1319: The patient was evaluated in room B2. A complete history and physical exam was performed. 1614: Vital signs stable. Labs show hemoglobin 9.4. Patient is not actively bleeding, it is thought that her black stools were due to Pepto-Bismol. Hemoccult negative. Troponin and proBNP within normal limits. D-dimer elevated , CT of the chest showed no PE did show multiple lung nodules. I discussed the patient's case with Dr. Hua, [facility] cardiology. I offered to keep the patient under observation for rule out ACS and serial troponins including stress. He recommends a repeat troponin and discharge home if negative. She will be scheduled for outpatient stress test next week. Attempt to make the patient's PCP aware of the lung nodules, her office was closed. Patient states she will follow-up with PCP about the lung nodules if discharge. 1750: Repeat troponin negative. DISCHARGE - Plan of care discussed with patient and questions answered. The patient was given both verbal and printed discharge instructions. The patient verbalized understanding and ability to comply. The patient is to seek outpatient follow up as noted in the discharge instructions. The patient verbalized understanding and ability to comply. The patient is discharged in stable condition. The patient was instructed to return for worsening symptoms. Medical Decision 1614: Vital signs stable. Labs show hemoglobin 9.4. Patient is not actively bleeding, it is thought that her black stools were due to Pepto-Bismol. Hemoccult negative. 2 sets of troponin and proBNP within normal limits. D- dimer elevated, CT of the chest showed no PE did show multiple lung nodules. I discussed the patient's case with Dr. Hua, [facility] cardiology. I offered to keep the patient under observation for rule out ACS and serial troponins including stress. He recommends a repeat troponin and discharge home if negative. She will be scheduled for outpatient stress test next week. Attempt to make the patient's PCP aware of the lung nodules, her office was closed. Patient states she will follow-up with PCP about the lung nodules if discharge. Medication Reconcilliation Current Medication List: was personally reviewed by me Blood Pressure Screening Patient's blood pressure: Elevated blood pressure Blood pressure disposition: Referred to PCP Consults Time Called: 1548 Consulting Physician: Dr. Hua, [facility] cardiology Returned Call: 1614 I discussed the patient's case with him. I offered to keep the patient under observation for rule out ACS and serial troponins including stress. He recommends a repeat troponin and discharge home if negative. She will be scheduled for outpatient stress test next week. Impression Primary Impression: Anemia Additional Impressions: Dyspnea Lung nodule Scribe Attestation The scribe's documentation has been prepared under my direction and personally reviewed by me in its entirety. I confirm that the note above accurately reflects all work, treatment, procedures, and medical decision making performed by me. The chart was completed utilizing [employer] voice recognition software. Grammatical errors, random word insertions, pronoun errors, and incomplete sentences are an occasional consequence of this system due to software limitations, ambient noise, and hardware issues. Any formal questions or concerns about the content, text, or information contained within the body of this dictation should be directly addressed to the physician for clarification. Departure Information Dispostion Home / Self-Care Referrals Sonido Hua, Ludwig Allen M.D. Forms HOME CARE DOCUMENTATION FORM, IMPORTANT VISIT INFORMATION, WORK / SCHOOL INSTRUCTIONS Patient Instructions My [facility] Additional Instructions Follow-up with your PCP and cardiology on Wednesday. Return to the emergency department if you develop chest pain, blood in his stools, blood in your urine, or your symptoms worsen Problem Qualifiers Primary Impression: Anemia Anemia type: unspecified type Qualified Codes: D64.9 - Anemia, unspecified Additional Impressions: Dyspnea Dyspnea type: unspecified Qualified Codes: R06.00 - Dyspnea, unspecified
[2017-12-17 17:58] VITALS: BP 158/78; PULSE 65; O2SAT 100
== END 2017-12-17 17:59 | disposition home or self-care (01) ==
LOC: C.EDB 12:58
DX: D64.9 Anemia, unspecified (principal); R06.00 Dyspnea, unspecified; R91.8 Other nonspecific abnormal finding of lung field; K21.9 Gastro-esophageal reflux disease without esophagitis; K44.9 Diaphragmatic hernia without obstruction or gangrene; I10 Essential (primary) hypertension; Z88.8 Allergy status to other drugs, medicaments and biological substances; Z91.018 Allergy to other foods; Z88.0 Allergy status to penicillin; Z85.3 Personal history of malignant neoplasm of breast; Z82.49 Family history of ischemic heart disease and other diseases of the circulatory system

== ENCOUNTER → 2017-12-29 | Outpatient (CLI) | payer BC ==
[~2017-12-29] MED LIST changes: -ASPI81TA28 PO; +BISO10TA14 PO; +CZR50 PO; -GLUC1CAP33 PO; +HYG/25 PO; -INDO-22 PO; -LOSA100T65 PO; +OMEP40CA41 PO; +SIMV20TA2 PO
--- NOTE | 2017-12-29 15:11 | DIAGNOSTIC IMAGING REPORT ---
PET/CT CLINICAL HISTORY: Solitary pulmonary nodule. Breast cancer. TECHNIQUE: A PET/CT was performed from the skull base through the upper thighs following intravenous injection of 11.05 mCi of F 18 FDG IV. The injection was performed at 10:01 AM on December 29, 2017 and imaging began at 11:06 AM on December 29, 2017. Unenhanced CT was performed for attenuation correction purposes and anatomic localization. COMPARISON STUDY: Chest CT December 17, 2017. FINDINGS: Head and neck: No abnormal FDG uptake is identified within the neck. There is no cervical lymphadenopathy. Chest: No enlarged axillary, mediastinal or hilar lymph nodes are present. The heart is moderately enlarged. A large hiatal hernia with partially intrathoracic stomach is unchanged. There are postoperative findings within the right breast, including a 5 x 1.6 cm hyperdense suspected fluid collection within the posterior aspect of the right breast which has no FDG uptake. This favors a seroma cavity. There is mild asymmetric radiotracer uptake within the right breast without focal uptake. Note is made of a 1.1 cm groundglass nodule within the apical segment of the right upper lobe which is unchanged since CT of December 17, 2017. This has mild FDG uptake with an SUV max of 2.4. There has been interval development of minimal airspace opacity within the lingula with mild FDG uptake since prior chest CT of December 17, 2017. Abdomen and Pelvis: There is no abnormal FDG uptake within the abdomen or the pelvis. There is no lymphadenopathy. There is a diverticulum of the second portion of the duodenum. There is colonic diverticulosis without evidence for acute diverticulitis. A right hepatic lobe cyst is noted. Musculoskeletal: No suspicious skeletal uptake is identified. IMPRESSION: 1. Mild FDG uptake within the 1.1 cm groundglass nodule within the apical segment of the right upper lobe. This nodule is unchanged since CT of December 17, 2017. The appearance is highly suggestive of a neoplasm, likely within the adenocarcinoma spectrum. The appearance is not typical for metastatic disease. 2. Post therapeutic changes within the right breast, including a 5 x 1.6 cm seroma. Mild asymmetric radiotracer uptake within the right breast with mild skin thickening is likely post therapeutic. 3. Interval development of minimal airspace opacity within the lingula since chest CT of December 17, 2017 consistent with a mild infectious process. Electronically signed by: Alex Moon M.D. 12/29/2017 3:09 PM Dictated Date/Time: 12/29/2017 12:26 PM
== END | disposition home or self-care (01) ==
LOC: C.PET 09:08
PROVIDERS: ATTEND Family Medicine
DX: R91.1 Solitary pulmonary nodule (principal); C50.919 Malignant neoplasm of unspecified site of unspecified female breast; D64.9 Anemia, unspecified

== ENCOUNTER → 2018-02-21 | Outpatient (CLI) | payer BC ==
[~2018-02-21] MED LIST changes: +GADAVIST IV PRN
--- NOTE | 2018-02-22 07:47 | MAMMOGRAPHY REPORT ---
BREAST MRI OF BOTH BREASTS : 02/21/2018 CLINICAL HISTORY: 77-year-old woman with a personal history of right breast cancer status post breast conservation treatment, presents for additional MRI surveillance. She reports tenderness in the rig ht breast. Abnormal tumor markers. COMPARISON: Comparison is made to exams dated: 09/29/2017 mammogram, 05/13/2017 breast MRI, 10/28/2016 specimen, 10/28/2016 localization, 10/14/2016 mammogram, and 10/14/2016 MRI biopsy - [facility]. TECHNIQUE: Using a 1.5 Deidre magnet and dedicated breast coil, multisequence axial images were obtain ed through the breasts. After uneventful IV administration of 6 mL of Gadavist, dynamic multiphase c ontrast-enhanced axial images, and sagittal postcontrast were obtained. Temporal subtraction axial i mages and 3-D MIP images are provided. Everything was then reviewed on a 3-D workstation, [employer]. FINDINGS: Right breast: There is no significant background parenchymal enhancement. There is evidence of prior treatment in the right breast with expected mild diffuse skin thickening and trabecular edema. Ther e is also edema of the right pectoralis musculature. There is a fluid collection at the surgical sit e in the 6:00 far posterior right breast measuring approximately 23 x 12 x 39 mm, compatible with an evolving hematoma/postsurgical seroma. There is a stable 5 mm intramammary lymph node in the upper o uter quadrant of the right breast. No new suspicious enhancing masses, non-mass enhancement, unexpec silvano architectural distortion or suspicious kinetics identified in the right breast. No new suspiciou s right axillary, subpectoral or internal mammary lymphadenopathy. Left breast: There is no significant background parenchymal enhancement. There is a focus of suscept ibility artifact in the 6:00 anterior left breast, denoting the site of prior benign MRI guided biops y. No new suspicious masses, non-mass enhancement, architectural distortion or suspicious kinetics i dentified in the left breast. No suspicious left axillary, subpectoral or internal mammary lymphaden opathy. Incidental note is made of a 10 mm T2 hyperintense nonenhancing cyst in the visualized right hepatic lobe. There is also a hiatal hernia seen on the 3 plane localizing sequence. IMPRESSION: ACR BI-RADS CATEGORY 2: BENIGN 1. Expected postsurgical and posttreatment changes in the right breast, without MRI evidence of karan gnancy. 2. Expected postbiopsy changes in the left breast, without MRI evidence of malignancy. 3. No suspicious axillary, subpectoral or internal mammary lymphadenopathy bilaterally. 4. Incidentally noted right hepatic lobe 10 mm cyst and hiatal hernia. The patient will receive written notification of the results. Rhonda Alvarado M.D. ay/:02/21/2018 20:55:50 Emergency Manager: rigger supervisor, [facility] letter sent: Normal 1/2 BI-RADS Code: ACR BI-RADS Category 2: Benign
== END | disposition home or self-care (01) ==
LOC: C.MRI 10:39
PROVIDERS: ATTEND Internal Medicine Hematology & Oncology
DX: D05.11 Intraductal carcinoma in situ of right breast (principal); R97.8 Other abnormal tumor markers

== ENCOUNTER → 2018-05-31 | Outpatient (CLI) | payer BC ==
[~2018-05-31] MED LIST changes: -GADAVIST IV PRN
== END | disposition home or self-care (01) ==
LOC: C.MAMM 13:06
PROVIDERS: ATTEND Family Medicine
DX: M85.851 Other specified disorders of bone density and structure, right thigh (principal); M85.852 Other specified disorders of bone density and structure, left thigh

== ENCOUNTER 2019-05-26 08:45 | Inpatient (IN) ==
--- NOTE | 2019-04-21 15:43 | PAT Medication Instructions ---
Medication Instructions Date of Service April 21, 2019 Home Medications aspirin 81 mg PO QAM bisoprolol-hydrochlorothiazide [Ziac] 1 tab PO QPM chlorthalidone 25 mg PO QAM cholecalciferol (vitamin D3) 2,000 unit PO QAM losartan 50 mg PO QAM omeprazole 40 mg PO QAM simvastatin 20 mg PO PM DO NOT take the morning of surgery chlorthalidone 25 mg PO QAM cholecalciferol (vitamin D3) 2,000 unit PO QAM losartan 50 mg PO QAM Take morning of surgery With a small sip of water, OTHERWISE NOTHING TO EAT OR DRINK AFTER MIDNIGHT: aspirin 81 mg PO QAM omeprazole 40 mg PO QAM Take evening before surgery bisoprolol-hydrochlorothiazide [Ziac] 1 tab PO QPM simvastatin 20 mg PO PM Other Notes If you have any questions please call us at [phone] or [phone] or [phone] or [phone]
--- NOTE | 2019-04-24 11:03 | Anesthesiology Consultation ---
Date of Service April 24, 2019 Assessment & Plan (1) Encounter for pre-operative examination: Cardiology (Javid) 04/18/19 = "From my standpoint, she is doing well...she is exercising on a regular basis and with her anemia resolved and pneumonia treated, she feels like she normally does. She gardens on a regular basis and feels well." [RTO 1 yr] Chart Review Chart Review: Acceptable Risk for Surgery and Patient seen in Pre Admission Testing Teaching & Discussion Instructed NPO after midnight before surgery, except medications with 15 cc of water. Medication instructions provided according to the PAT guidelines. History Surgery Operation Date: 05/26/19 10:05 Proposed Procedures p Right Reverse Shoulder Replacement - Josué Monaco, Height/Weight Height: 5 ft 1.5 in Weight: 63 kg Allergies Allergy/AdvReac Type Severity Reaction Status Date / Time amlodipine Allergy Unknown edema Verified 04/18/19 11:48 atorvastatin Allergy Unknown joint pain Verified 04/18/19 11:48 lisinopril Allergy Unknown cough Verified 04/18/19 11:48 buck Allergy Unknown rash Verified 08/09/18 14:00 Penicillins Allergy Unknown ? RASH Verified 04/18/19 11:48 CHILD Medications Home Medications Medication Instructions Recorded Confirmed Last Taken aspirin 81 mg PO QAM 04/18/19 04/18/19 Unknown bisoprolol-hydrochlorothiazide 1 tab PO QPM 04/18/19 04/18/19 Unknown [Ziac] chlorthalidone 25 mg PO QAM 04/18/19 04/18/19 Unknown cholecalciferol (vitamin D3) 2,000 unit PO QAM 04/18/19 04/18/19 Unknown [Vitamin D3] losartan 50 mg PO QAM 04/18/19 04/18/19 Unknown omeprazole 40 mg PO QAM 04/18/19 04/18/19 Unknown simvastatin 20 mg PO PM 04/18/19 04/18/19 Unknown Past Medical History Medical History Bicuspid aortic valve No on 12/06/17 echo. Mild-mod AI. Diverticular disease H/O: CVA (cerebrovascular accident) Pt recalls symptoms ~1974 but not known stroke until noted on brain imaging a few years ago. Hiatal hernia History of anemia Hx of breast cancer RIGHT, S/P LUMPECTOMY, CHEMO AND RADIATION, 2016 Hyperlipidemia Hypertension PFO (patent foramen ovale) Pulmonary nodule MONITORED YEARLY WITH CT Torn rotator cuff RIGHT Exercise / Class Metabolic Activity II 4-5 Yardwork/Stairs/Walk up hill (Denies CP or SOB with stairs, goes to the gym 3x per week) Past Surgical History Surgical History History of bunionectomy of right great toe History of colonoscopy History of lumpectomy of right breast Hx of hysterectomy TOTAL Past Anesthesia History No Hx of Anesthesia Complications and No Family Hx of Anesthesia Complications History of PONV No Hx of PONV and No Hx of Motion Sickness Social History Smoking Status: Former smoker tobacco type: cigarettes Do You Dip or Chew Tobacco: No Smoking End Date: REMOTE HX, "SOCIALLY" LONG TIME AGO Hx Alcohol Use: Yes Alcohol type: wine alcohol intake frequency: 0-2 drinks per day Alcohol Intake Frequency Comment: WITH DINNER Hx Substance Use: No Review of Systems Pt denies any recent chest pain, shortness of breath, palpitations, cough, fever or URI. Physical Exam Vital Signs BP: 124/61 P: 58bpm SPO2: 97% RA T: 97.8 R: 16 ENMT Mouth: + dental restorations (few crowns); no chipped teeth and no loose teeth Thyromental Distance: > or= 3.5 Finger Breadths (3.5) Mallampati Class: II (narrow posterior orpharynx but uvula fully visible) Neck normal visual inspection; neck extension not limited Respiratory normal respiratory effort Auscultation: lungs clear to auscultation bilaterally Prolonged expiratory phase Cardiovascular Rate/Rhythm: regular rate and regular rhythm Heart Sounds: no murmur Vessels: no carotid bruit Extremities: no edema Testing Laboratory Results 04/24/19 11:35 04/24/19 11:35 PT 10.1 Seconds (9.0-12.0) 04/24/19 11:35 INR 1.0 (0.9-1.1) 04/24/19 11:35 APTT 23.1 Seconds (21.0-31.0) 04/24/19 11:35 Blood Type O Positive 04/24/19 11:35 Antibody Screen NEGATIVE 04/24/19 11:35 Electrocardiogram Date: 04/19/19 Findings: + NSR @ (67) Chest X-Ray Date: 04/24/19 Findings: + NAD Echocardiogram Date: 12/06/17 EF: 65% Bicuspid aortic valve with anterior and posterior cusps (fusion of right coronary cusp and left coronary cusp). No aortic stenosis. Mild to moderate aortic insufficiency. Normal LV size and systolic function with no regional wall motion abnormalities. No LVH. Grade 2 diastolic dysfunction of the left ventricle. Elevated left atrial pressure. Moderate left atrial dilation. Dilated right ventricle with normal systolic function. Severely dilated right a trium. Dilated aortic root (3.7 cm). Known patent foramen ovale. Mild MR. Top normal pulmonary pressures. Compared to the previous study performed 03/16/2014, left and right atria are more dilated and there is grade 2 LV diastolic dysfunction. There is no significant change in the size of the aorta or degree of aortic insufficiency.
--- NOTE | 2019-04-24 12:09 | XRay Report ---
XR chest Pre-admission PA/Lat CLINICAL HISTORY: 79 years-old Female presenting with preoperative evaluation. TECHNIQUE: PA and lateral views of the chest were obtained. COMPARISON: CTA chest from 12/17/2017 and chest x-ray from 12/17/2017. FINDINGS: Cardiomediastinal silhouette normal. Lungs and pleural spaces clear. Surgical clips project over the right lung base likely within the right breast. A biopsy clip is likely present within the left breas t. Osseous structures normal. Upper abdomen normal. IMPRESSION: 1. No acute cardiopulmonary disease. Electronically signed by: Phuc Chavez M.D. 04/24/2019 12:08 PM
[2019-04-24 12:16] LABS: Basophils # (auto) 0.05 K/uL (0-0.2); Basophils % (auto) 0.6 %; Eosinophils # (auto) 0.11 K/uL (0-0.5); Eosinophils % (auto) 1.4 %; Hematocrit (blood only) 39.8 % (37-47); Hemoglobin 13.7 g/dL (12.0-16.0); Immature Granulocytes # (auto) 0.03 K/uL (0.00-0.02); Immature Granulocytes % (auto) 0.4 %; Lymphocytes % (auto) 11.3 %; Mean Corpuscular Hgb Conc 34.4 g/dL (32-36); Mean Corpuscular Volume 88.6 fL (80-100); Mean Platelet Volume 9.5 fL (7.4-10.4); Monocytes # (auto) 0.92 K/uL (0.11-0.59); Monocytes % (auto) 11.6 %; Neutrophils # (auto) 5.92 K/uL (1.4-6.5); Neutrophils % (auto) 74.7 %; Platelet Count 268 K/uL (130-400); RDW Coefficient of Variation 12.3 % (11.5-14.5); RDW Standard Deviation 39.6 fL (36.4-46.3); Red Blood Count 4.49 M/uL (4.2-5.4); White Blood Count 7.93 K/uL (4.8-10.8)
[2019-04-24 12:28] LABS: Partial Thromboplastin Ratio 0.9; Partial Thromboplastin Time 23.1 Seconds (21.0-31.0); Prothrombin Time 10.1 Seconds (9.0-12.0)
[2019-04-24 13:11] LABS: BUN Creatinine Ratio 23.9 (10-20); Calcium 9.8 mg/dl (8.5-10.1); Creatinine Clr Calc Pharmacy 52.7 ml/min; Est GFR (African American) 87.7; Est GFR (Non-African American) 75.7; Potassium 3.6 mmol/L (3.5-5.1)
--- NOTE | 2019-05-25 15:51 | History & Physical Report ---
Date of Service May 25, 2019 Assessment & Plan (1) Rotator cuff arthropathy of right shoulder: We will proceed with a right reverse shoulder arthroplasty. Postoperatively she will be placed in a sling and kept overnight for postoperative medical management. She plans to use energy physical therapy upon discharge. Present on Admission?: Yes History of Present Illness Chief Complaint: Rotator cuff arthropathy of the right shoulder Primary Care Provider: Ludwig Gary MD Patient is a pleasant 79-year-old female who is been dealing with right shoulder pain since September. Her was at end stages of life and she is been helping him by pushing a wheelchair and lifting him up out of the car. She did months of physical therapy. MRI of her shoulder showed a large chronic retracted rotator cuff tear. After failing conservative treatment, she has elected to proceed with a right reverse shoulder arthroplasty. Allergies Allergy/AdvReac Type Severity Reaction Status Date / Time amlodipine Allergy Unknown edema Verified 04/18/19 11:48 atorvastatin Allergy Unknown joint pain Verified 04/18/19 11:48 lisinopril Allergy Unknown cough Verified 04/18/19 11:48 buck Allergy Unknown rash Verified 08/09/18 14:00 Penicillins Allergy Unknown ? RASH Verified 04/18/19 11:48 CHILD Home Medications Home Medications Medication Instructions Recorded Confirmed Type aspirin 81 mg PO QAM 04/18/19 04/18/19 History bisoprolol-hydrochlorothiazide 1 tab PO QPM 04/18/19 04/18/19 History [Ziac] chlorthalidone 25 mg PO QAM 04/18/19 04/18/19 History cholecalciferol (vitamin D3) 2,000 unit PO QAM 04/18/19 04/18/19 History [Vitamin D3] losartan 50 mg PO QAM 04/18/19 04/18/19 History omeprazole 40 mg PO QAM 04/18/19 04/18/19 History simvastatin 20 mg PO PM 04/18/19 04/18/19 History Past Med/Surg History Medical History Bicuspid aortic valve No on 12/06/17 echo. Mild-mod AI. Diverticular disease H/O: CVA (cerebrovascular accident) Pt recalls symptoms ~1974 but not known stroke until noted on brain imaging a few years ago. Hiatal hernia History of anemia Hx of breast cancer RIGHT, S/P LUMPECTOMY, CHEMO AND RADIATION, 2016 Hyperlipidemia Hypertension PFO (patent foramen ovale) Pulmonary nodule MONITORED YEARLY WITH CT Torn rotator cuff RIGHT Surgical History History of bunionectomy of right great toe History of colonoscopy History of lumpectomy of right breast Hx of hysterectomy TOTAL Social History Preferred Language: Croatian Communication Ability: Effective Beliefs That Will Affect Care: None Current Living Situation: Alone Feels Safe at Home: Yes Safety Concerns: Feels Safe At This Time Smoking Status: Former smoker Tobacco Type: cigarettes Do You Dip or Chew Tobacco: No Smoking End Date: REMOTE HX, "SOCIALLY" LONG TIME AGO Second Hand Exposure: No Hx Alcohol Use: Yes Alcohol type: wine Hx Substance Use: No Review of Systems All systems reviewed & are unremarkable except as noted in HPI & below Physical Exam Constitutional: WD/WN, vitals as above Eyes: PERRL, conjunctivae normal, anicteric sclerae ENMT: external ear and nose normal, oropharynx normal Neck: trachea midline, no thyromegaly Respiratory: normal respiratory effort Cardiovascular: RRR, no murmur, no edema Gastrointestinal (Abdomen): normal bowel sounds, soft, nontender, no hepatosplenomegaly Musculoskeletal: Physical examination of the right shoulder reveals decreased range of motion and significant weakness. There is tenderness palpation along the anterior glenohumeral joint line. The right upper extremity is neurovascularly intact. Psychiatric: A+Ox3, euthymic affect Results & Data Diagnostic Findings Radiographs of the right shoulder show some signs of osteoarthritis with blunting of the greater tuberosity and some superior migration of the humeral head on the glenoid.
[~2019-05-26 08:45] MED LIST changes: +ACETAMINOPHEN 500 MG TAB PO SCH; -BISO10TA14 PO; +BUPIVACAINE 0.5 % 5 MG/1 ML PF 10ML VIAL ONE; +CEFAZOLIN 2000MG 2,000 MG/15 ML SYR IV SCH; -CHOL20007 PO; -CZR50 PO; +FAMOTIDINE 20 MG TAB PO SCH; +GABAPENTIN 300 MG CAP PO SCH; -HYG/25 PO; +LR 60ML/HR IV SCH; -OMEP40CA41 PO; +ROPIVACAINE 0.5% HCL/PF 150 MG, BUPIVACAINE 0.5% MPF 30 ML, EPINEPHrine 30MG/30ML (OR U... INSTIL SCH; -SIMV20TA2 PO; +TRANEXAMIC ACID 1,000 MG **IV Intra-op IV SCH; +TRANEXAMIC ACID 1,000 MG **IV Pre-op IV SCH
--- NOTE | 2019-05-26 10:16 | History & Physical Bridge Note ---
Date of Service May 26, 2019 History & Physical Bridge Note I have examined the patient, reviewed the History & Physical and in the interval since the performance of the History & Physical I have noted the following changes of clinical significance: no changes noted
[2019-05-26] MEDS ORDERED: ORTHO JOINT ANESTHETIC ONE (10:52)
[2019-05-26] MEDS ORDERED: GLYCOPYRROLATE 0.2 MG/ML VIAL ONE (10:53)
[2019-05-26] MEDS ORDERED: ROCURONIUM BROMIDE 10 MG/ML 5 ML VIAL ONE (10:53)
[2019-05-26] MEDS ORDERED: ONDANSETRON INJ 2 MG/ML 2 ML VIAL ONE (10:53)
[2019-05-26] MEDS ORDERED: LIDOCAINE HCL 2% 2 ML VIAL/AMP(20MG/ML) INFIL ONE (10:53)
[2019-05-26] MEDS ORDERED: NEOSTIGMINE METHYLSULFATE 5 MG/5 ML SYR ONE (10:53)
[2019-05-26] MEDS ORDERED: fentaNYL citrate 100 MCG/2 ML VIAL ONE (10:53)
[2019-05-26] MEDS ORDERED: MIDAZOLAM HCL 1 MG/ML 2ML VIAL ONE ×2 (10:53)
[2019-05-26] MEDS ORDERED: PROPOFOL IV EMULSION 10 MG/ML 20 ML VIAL IV ONE (10:53)
[2019-05-26] MEDS ORDERED: ePHEDrine sulfate 50 MG/ML AMP IV PRN (11:11)
[2019-05-26] MEDS ORDERED: ATROPINE SULFATE 0.1 MG/ML 10ML SYR IV PRN (11:11)
--- NOTE | 2019-05-26 13:08 | Operative Report ---
Post Operative Report Pre & Post Diagnosis Operation Date: 05/26/19 11:10 Pre-Op Diagnosis: RIGHT SHOULDER rotator cuff arthropathy Post-Op Diagnosis: RIGHT SHOULDER rotator cuff arthropathy Procedure Operation Date: 05/26/19 11:10 Actual Procedures p Right Reverse Shoulder Replacement(Right) - Josué Monaco DO Surgeon Josué Monaco DO Certified Control Systems Technician Josué Corbin PAC Estimated Blood Loss 200 Findings Consistent with Post-Op Diagnosis Specimens Right humeral head Complications none Disposition Disposition: Recovery Room Indications Patient is a pleasant 79-year-old female who presented my office with increased pain and weakness of her right shoulder. MRI x-rays and clinical examination were all diagnostic for rotator cuff arthropathy of the right shoulder. After failing conservative treatment, she elected to proceed with a right reverse shoulder arthroplasty. Description of Procedure Implants used: I used a [employer] Comprehensive reverse total shoulder arthroplasty system with a size 9 press fit mini humeral stem, a standard humeral tray and a standard humeral bearing, a 25 mm mini baseplate with a 6.5 mm central screw and superior and inferior locking screws, and a size 36 mm eccentric glenosphere. The patient arrived at [facility] for the above procedure. There were seen in the preoperative holding area and the operative extremity was identified and signed. They were given a preoperative antibiotic and an interscalene nerve block. They were taken back to the operating room, laid on table in supine position, and put under general anesthesia. They were then put into the beachchair position. The shoulder was then prepped and draped in sterile fashion. A timeout was done and the patient in the operative extremity was properly identified. A deltopectoral approach was used. Dissection was taken down through the fascia and the deltoid was retracted laterally and the conjoined tendon was retracted medially. The anterior shoulder was exposed. The long head of the biceps tendon was tenodesed to the upper border of the pectoralis major. The subscapularis was then released off the lesser tuberosity with a centimeter of cuff tissue remaining. The inferior capsule was released and the humeral head was dislocated. A canal finding reamer was sent down the center of the humeral canal. Sequential reaming up to a size 9 reamer was done. Off that reamer, a proximal humeral resection guide was placed. The proximal humerus was resected at 135 of inclination and 25 of retroversion. Osteophytes were then removed and the glenoid was exposed. Time was spent doing a complete capsular and labral release. The glenoid guide was then placed in the inferior aspect of the glenoid. A 3.2 mm Steinmann pin was then placed into the glenoid vault at 10 of inclination. The glenoid baseplate was then reamed. The final size 25 mm mini baseplate was then impacted in the place. A 6.5 mm central screw was then placed followed by superior and inferior locking screws. A 36 mm eccentric glenoid sphere was then impacted into place. Surrounding soft tissues were then injected with 100 cc an orthopedic pain control cocktail. The proximal humerus was then exposed. Sequential broaching of the humerus up to a size 9 broach was done. Off that broach a standard humeral tray was trialed. The shoulder was then reduced, brought through a full range of motion and felt to be stable. The shoulder was then dislocated and the broach was removed. The final size 9 mini press-fit humeral stem was then impacted into place. A standard humeral bearing was then snapped onto a standard humeral tray and the ring-lock mechanism was engaged. The humeral tray was then impacted onto the humeral stem. The shoulder was once again reduced, brought through a full range of motion and felt to be stable. The subscapularis was then tenodesed back to the lesser tuberosity with transosseous FiberWire sutures and side to side sutures with the arm in 45 of external rotation. A dilute betadyne lavage was then done for 3 minutes. The joint was then irrigated with normal saline solution. Hemostasis was obtained. The skin was then closed with 2-0 Vicryl, 3-0V lock suture, and maya. A soft dressing and a regular arm sling was placed. The patient was then extubated and transferred to a hospital bed. They were taken to the postanesthesia care unit in stable condition. They tolerated the procedure well. I attest to the content of the Intraoperative Record and any orders documented therein. Any exceptions are noted below.
--- NOTE | 2019-05-26 14:04 | XRay Report ---
XR shoulder RT min 2V routine CLINICAL HISTORY: 79 years-old Female presenting with Post shoulder surgery. TECHNIQUE: Frontal and transcatheter Y views of the right shoulder were obtained. COMPARISON: MR from 02/16/2019. FINDINGS: There has been interval reverse right total shoulder arthroplasty. No malalignment or periprosthetic fracture. Overlying skin maya noted. Expected soft tissue emphysema. Acromioclavicular joint congr uent. Opacity at the right lung base. IMPRESSION: 1. Expected postsurgical appearance status post reversed right total shoulder arthroplasty. 2. Suspected right basilar atelectasis. Electronically signed by: Phuc Chavez M.D. 05/26/2019 2:03 PM
--- NOTE | 2019-05-26 14:13 | Anesthesiology Progress Note ---
Date of Service May 26, 2019 Anesthesia Post Procedure Vital Signs Vital Signs: Temp Pulse Pulse Resp BP Pulse Ox 05/26/19 14:10 36.4 C L 73 16 150/85 H 95 05/26/19 14:00 65 16 162/72 H 96 05/26/19 13:50 74 16 167/80 H 99 05/26/19 13:40 36.1 C L 80 14 166/77 H 97 05/26/19 09:16 36.9 C 60 20 131/73 98 Pain Intensity Right Shoulder: Pain Intensity: 2 Transfer of Care Handoff Completed per policy Notes Mental Status: alert / awake / arousable and participated in evaluation Patient Amnestic to Procedure: Yes Nausea / Vomiting: adequately controlled Pain: adequately controlled Airway Patency, RR, SpO2: stable & adequate BP & HR: stable & adequate Hydration State: stable & adequate Anesthetic Complications: no major complications apparent
[2019-05-26] MEDS ORDERED: NALOXONE HCL 0.4 MG/1 ML VIAL/CARP IV PRN (15:40)
[2019-05-26] MEDS ORDERED: HYDROmorphone INJ 0.5 MG/0.5 ML SYR IV PRN (15:40)
[2019-05-26] MEDS ORDERED: TRAMADOL HCL 50 MG TABLET PO PRN (15:40)
[2019-05-26] MEDS ORDERED: ONDANSETRON INJ 2 MG/ML 2 ML VIAL IV PRN (15:40)
[2019-05-26] MEDS ORDERED: DiphenhydrAMINE HCL 50 MG/ML VIAL IV PRN (15:40)
[2019-05-26] MEDS ORDERED: OXYCODONE HCL IR 5 MG TAB (IMMEDIATE RELEASE) PO PRN (15:40)
[2019-05-26] MEDS ORDERED: METOCLOPRAMIDE HCL INJ 5 MG/ML 2 ML VIAL IV PRN (15:40)
[2019-05-26] MEDS ORDERED: MAGNESIUM HYDROXIDE SUSP 30 ML UDC PO PRN (15:40)
[2019-05-26] MEDS ORDERED: BISACODYL 10 MG SUPP PR PRN (15:40)
[2019-05-26] MEDS: SODIUM CHLORIDE 0.9% 1000ML 1,000 ML IV SCH (16:00)
[2019-05-26] MEDS: KETOROLAC TROMETHAMINE 15 MG/ML VIAL IV SCH (18:03)
[2019-05-26] MEDS: ACETAMINOPHEN 500 MG TAB PO SCH (18:03)
[2019-05-26] MEDS: DOCUSATE SODIUM 100 MG CAP PO SCH (20:50)
[2019-05-26] MEDS: CEFAZOLIN 2000MG 2,000 MG/15 ML SYR IV SCH (20:50)
[2019-05-26] MEDS ORDERED: SENNA 8.6 MG TAB PO SCH (21:00)
[2019-05-26] MEDS ORDERED: SIMVASTATIN 20 MG TAB PO SCH (21:00)
[2019-05-27] MEDS: KETOROLAC TROMETHAMINE 15 MG/ML VIAL IV SCH ×2 (00:06→05:13)
[2019-05-27] MEDS: SODIUM CHLORIDE 0.9% 1000ML 1,000 ML IV SCH (00:13)
[2019-05-27] MEDS: CEFAZOLIN 2000MG 2,000 MG/15 ML SYR IV SCH (05:13)
[2019-05-27] MEDS: ACETAMINOPHEN 500 MG TAB PO SCH (05:13)
[2019-05-27 06:25] LABS: Basophils # (auto) 0.01 K/uL (0-0.2); Basophils % (auto) 0.1 %; Hematocrit (blood only) 34.1 % (37-47); Hemoglobin 11.8 g/dL (12.0-16.0); Immature Granulocytes # (auto) 0.04 K/uL (0.00-0.02); Immature Granulocytes % (auto) 0.3 %; Lymphocytes # (auto) 0.34 K/uL (1.2-3.4); Lymphocytes % (auto) 2.6 %; Mean Corpuscular Hgb Conc 34.6 g/dL (32-36); Mean Corpuscular Volume 88.8 fL (80-100); Mean Platelet Volume 9.7 fL (7.4-10.4); Monocytes # (auto) 0.95 K/uL (0.11-0.59); Monocytes % (auto) 7.2 %; Neutrophils # (auto) 11.87 K/uL (1.4-6.5); Neutrophils % (auto) 89.8 %; Platelet Count 226 K/uL (130-400); RDW Coefficient of Variation 12.7 % (11.5-14.5); RDW Standard Deviation 40.7 fL (36.4-46.3); Red Blood Count 3.84 M/uL (4.2-5.4); White Blood Count 13.21 K/uL (4.8-10.8)
[2019-05-27 07:05] LABS: BUN Creatinine Ratio 17.7 (10-20); Calcium 8.5 mg/dl (8.5-10.1); Creatinine Clr Calc Pharmacy 41.4 ml/min; Est GFR (African American) 64.5; Est GFR (Non-African American) 55.6; Potassium 3.4 mmol/L (3.5-5.1)
[2019-05-27 07:24] VITALS: O2SAT 95
[2019-05-27] MEDS ORDERED: MULTIVITAMIN TAB PO SCH (09:00)
[2019-05-27] MEDS ORDERED: LOSARTAN POTASSIUM 50 MG TAB PO SCH (09:00)
[2019-05-27] MEDS ORDERED: PANTOprazole 40 MG TAB PO SCH (09:00)
[2019-05-27] MEDS ORDERED: CHOLECALCIFEROL 1,000 UNITS TAB PO SCH (09:00)
[2019-05-27] MEDS ORDERED: CHLORTHALIDONE 25 MG TAB PO SCH (09:00)
--- NOTE | 2019-05-27 09:04 | Orthopedic Progress Note ---
Date of Service May 27, 2019 Assessment & Plan (1) Rotator cuff arthropathy of right shoulder: Overall she is doing very well. She is not having much pain in the right shoulder. She will be seen by physical therapy today for range of motion exercises. She will be discharged home later this morning with [facility]. She will follow-up with orthopedics in 2 weeks. Present on Admission?: Yes Subjective Patient was seen and examined at bedside this morning. Overall she is doing very well. She not having any pain in the right shoulder. She is happy with her progress to this point. She has no complaints. Physical Exam Musculoskeletal: On physical examination of the right shoulder, the dressing is clean and dry. Her radial, median, and ulnar nerves are checked and intact at the wrist. Her axillary nerve is not checked yet. She is wearing her sling as instructed. Results & Data Vital Signs (Past 12 Hours) Vital Signs Temp Pulse Pulse Resp BP Pulse Ox 05/27/19 07:23 36.7 C 68 16 114/69 95 05/27/19 04:07 36.3 C L 72 14 123/79 90 05/26/19 23:08 36.5 C 77 16 127/76 94 05/26/19 22:46 62 98 Laboratory Results H & H 04/24/19 05/27/19 Range/Units 11:35 05:46 Hgb 13.7 11.8 L (12.0-16.0) g/dL Hct 39.8 34.1 L (37-47) % Coagulation 04/24/19 Range/Units 11:35 INR 1.0 (0.9-1.1) Diagnostic Findings Postoperative x-rays of the right shoulder show the prosthesis to be in anatomic alignment without any evidence of fracture, dislocation, or loosening.
--- NOTE | 2019-05-27 09:05 | Discharge Summary ---
Date of Service May 27, 2019 Admission HPI Per Admitting Provider Patient is a pleasant 79-year-old female who is been dealing with right shoulder pain since September. Her was at end stages of life and she is been helping him by pushing a wheelchair and lifting him up out of the car. She did months of physical therapy. MRI of her shoulder showed a large chronic retracted rotator cuff tear. After failing conservative treatment, she has elected to proceed with a right reverse shoulder arthroplasty. Specialty Data Orthopedic H & H 04/24/19 05/27/19 Range/Units 11:35 05:46 Hgb 13.7 11.8 L (12.0-16.0) g/dL Hct 39.8 34.1 L (37-47) % Coagulation 04/24/19 Range/Units 11:35 INR 1.0 (0.9-1.1) Discharge Data Consultations 05/26/19 15:40 Consult Case Management - Discharge Planning Routine Procedures Performed Operation Date: 05/26/19 11:10 Actual Procedures p Right Reverse Shoulder Replacement(Right) - Josué Monaco DO Hospital Course (1) Rotator cuff arthropathy of right shoulder: On May 26, 2019 the patient arrived at [facility] and underw ent a right reverse shoulder arthroplasty without complication. She had a general anesthetic and a right interscalene nerve block. Postoperatively she was discharged to general orthopedic floors. Her hospital course is uneventful. On postop day #1 her H&H was stable and her pain was well controlled. She was able to participate well with physical therapy doing range of motion exercises. She was then discharged home with [facility]. She will follow-up with orthopedics in 2 weeks. Discharge Instructions Home Medications Medication Instructions Recorded Confirmed aspirin 81 mg PO QAM 04/18/19 05/26/19 bisoprolol-hydrochlorothiazide 1 tab PO QPM 04/18/19 05/26/19 [Ziac] chlorthalidone 25 mg PO QAM 04/18/19 05/26/19 cholecalciferol (vitamin D3) 2,000 unit PO QAM 04/18/19 05/26/19 [Vitamin D3] losartan 50 mg PO QAM 04/18/19 05/26/19 omeprazole 40 mg PO QAM 04/18/19 05/26/19 simvastatin 20 mg PO PM 04/18/19 05/26/19 acetaminophen 325 mg PO Q6H PRN 05/26/19 05/26/19 Previous Rx's Medication Instructions Recorded hydrocodone-acetaminophen 1 tab PO Q6H PRN #30 tab 05/27/19
[2019-05-27] MEDS: DOCUSATE SODIUM 100 MG CAP PO SCH (09:28)
--- NOTE | 2019-05-27 10:36 | Anesthesiology Progress Note ---
Date of Service May 27, 2019 Anesthesia Post Procedure Vital Signs Vital Signs: Temp Pulse Pulse Pulse Resp BP Pulse Ox 05/27/19 07:23 36.7 C 68 16 114/69 95 05/27/19 04:07 36.3 C L 72 14 123/79 90 05/26/19 23:08 36.5 C 77 16 127/76 94 05/26/19 22:46 62 98 05/26/19 17:57 36.4 C L 64 16 136/77 100 05/26/19 16:46 36.2 C L 68 16 146/80 H 100 05/26/19 16:06 36.3 C L 59 L 16 147/70 H 100 05/26/19 15:58 35.6 C L 05/26/19 15:22 56 L 18 144/75 H 98 05/26/19 14:45 36.5 C 61 14 136/77 96 05/26/19 14:30 56 L 16 150/64 H 98 05/26/19 14:20 60 16 135/69 95 05/26/19 14:10 36.4 C L 73 16 150/85 H 95 05/26/19 14:00 65 16 162/72 H 96 05/26/19 13:50 74 16 167/80 H 99 05/26/19 13:40 36.1 C L 80 14 166/77 H 97 Pain Intensity Right Shoulder: Pain Intensity: 2 Transfer of Care Handoff Completed per policy Notes Mental Status: alert / awake / arousable and participated in evaluation Patient Amnestic to Procedure: Yes Nausea / Vomiting: adequately controlled Pain: adequately controlled Airway Patency, RR, SpO2: stable & adequate BP & HR: stable & adequate Hydration State: stable & adequate Anesthetic Complications: no major complications apparent
[2019-05-27 12:09] VITALS: BP 108/65; PULSE 61; TEMP 97.7
== END 2019-05-27 13:06 | disposition home or self-care (01) | DRG 483 ==
LOC: ASU 08:45 → 3E 13:39

== ENCOUNTER 2022-02-08 22:53 | Inpatient (IN) ==
--- NOTE | 2022-02-08 23:04 | Emergency Department Note ---
History of Present Illness General Chief complaint: Stroke Alert Stated complaint: FALL/STROKE SYMPTOMS Time Seen by Provider: 02/08/22 22:56 Source: patient and EMS Mode of arrival: EMS Limitations: no limitations History of Present Illness This patient is a 81-year-old female who is brought in with strokelike symptoms from EMS. She said she fell around 2 or 230 because she was weak and she laid on the floor. That is approximately 9 hours prior to arrival. She has dense weakness on the left arm and leg. A stroke alert was called prior to arrival. She denies any chest pain or recent illness. Denies headache or neck pain. No trouble speaking or swallowing. She has had a stroke in the past as well as a PFO and breast cancer. She is on no blood thinners. She lives alone. Denies chest pain or shortness of breath Home Medications Medication Instructions Recorded Confirmed Type bisoprolol 5 1 tab PO QAM 04/18/19 02/08/22 History mg-hydrochlorothiazide 6.25 mg tablet (Ziac) chlorthalidone 25 mg tablet 25 mg PO QAM 04/18/19 02/08/22 History cholecalciferol (vitamin D3) 50 2,000 unit PO QPM 04/18/19 02/08/22 History mcg (2,000 unit) tablet (Vitamin D3) simvastatin 20 mg tablet 20 mg PO PM 04/18/19 02/08/22 History multivitamin 1 tab PO DAILY 02/22/20 02/08/22 History omeprazole 40 mg capsule,delayed 20 mg PO DAILY cap 09/10/21 02/08/22 History release psyllium husk 0.4 gram capsule 0.8 g PO DAILY 02/08/22 02/08/22 History (Fiber (psyllium husk)) Allergies Allergy/AdvReac Type Severity Reaction Status Date / Time amlodipine Allergy Intermediate edema Verified 02/08/22 23:14 atorvastatin Allergy Intermediate joint pain Verified 02/08/22 23:14 lisinopril Allergy Intermediate cough Verified 02/08/22 23:14 buck Allergy Intermediate rash Verified 02/08/22 23:14 Penicillins Allergy Unknown ? RASH Verified 02/08/22 23:14 CHILD Past Med/Surg History Medical History Bicuspid aortic valve No on 12/06/17 echo. Mild-mod AI. Diverticular disease H/O: CVA (cerebrovascular accident) Pt recalls symptoms ~1974 but not known stroke until noted on brain imaging a few years ago. Hiatal hernia History of anemia Hx of breast cancer RIGHT, S/P LUMPECTOMY, CHEMO AND RADIATION, 2016 Hyperlipidemia Hypertension PFO (patent foramen ovale) Pulmonary nodule MONITORED YEARLY WITH CT Torn rotator cuff RIGHT Surgical History History of bunionectomy of right great toe History of colonoscopy History of lumpectomy of right breast History of repair of hiatal hernia Hx of hysterectomy TOTAL Social History Smoking Status: Never smoker Second Hand Exposure: No; Hx Alcohol Use: Yes Alcohol type: wine Hx Substance Use: No Preferred Language: [place] Communication Ability: Effective Visual Impairment: No Limitations Beliefs That Will Affect Care: None marital status: / Current Living Situation: Alone Feels Safe at Home: Yes Assistive Devices: None Review of Systems A total of 10 systems reviewed and were otherwise negative Physical Exam Vital Signs Vital Signs - 24 hr 02/08/22 23:25 02/08/22 23:32 02/09/22 00:00 Temperature 36.5 C 36.5 C Temperature Source Oral Axillary Pulse Rate 69 Pulse Rate [Apical] 73 63 Pulse Rhythm [Apical] Regular Pulse Strength [Apical] Normal Respiratory Rate 24 22 20 Respiratory Effort / Characteristics Non-Labored Spontaneous Non-Labored Spontaneous Non-Labored Spontaneous Respiratory Depth Normal Normal Normal Respiratory Pattern Regular Blood Pressure 167/66 H Blood Pressure [Left Arm] 167/66 H 150/93 H Blood Pressure Mean 99 Blood Pressure Mean [Left Arm] 99 112 Blood Pressure Position [Left Arm] Lying Pulse Oximetry 98 99 95 Oxygen Delivery Method Room Air Room Air Room Air Sepsis Recent Fever Within 48 Hours No Sepsis New/Unexplained Change in Mental Status No Sepsis Action Taken by Nursing No Action Required 02/09/22 00:15 02/09/22 00:30 02/09/22 00:45 Temperature Temperature Source Pulse Rate Pulse Rate [Apical] 62 66 59 L Pulse Rhythm [Apical] Pulse Strength [Apical] Respiratory Rate 20 18 18 Respiratory Effort / Characteristics Non-Labored Spontaneous Non-Labored Spontaneous Non-Labored Spontaneous Respiratory Depth Normal Normal Normal Respiratory Pattern Blood Pressure Blood Pressure [Left Arm] 168/71 H 153/100 H 158/79 H Blood Pressure Mean Blood Pressure Mean [Left Arm] 103 117 105 Blood Pressure Position [Left Arm] Pulse Oximetry 97 98 97 Oxygen Delivery Method Room Air Room Air Room Air Sepsis Recent Fever Within 48 Hours Sepsis New/Unexplained Change in Mental Status Sepsis Action Taken by Nursing General: Well developed well nourished female who has a gaze preference to the right and dense hemiparesis on the left but in no acute distress, breathing comfortably on room air. Normal speech HEENT: Normal cephalic atraumatic. Pupils are equal round and reactive to light. Extraocular movements are intact. Oropharynx is pink with moist mucous membranes. No swelling of the mouth lips or tongue. Neck: Supple with a midline trachea. No meningeal signs or stiffness, no JVD or bruits. No Stridor. Chest: Clear to auscultation bilaterally. No wheezes or rhonchi. No increased work of breathing. Heart: Regular rate and rhythm without murmurs or gallops. Abdomen: Soft nontender, nondistended without rebound guarding or rigidity. Extremities: No cyanosis clubbing or edema. No calf tenderness or assymetry Spine/Back. Non tender to palpation. No CVA tenderness Skin: Good turgor without rashes. Neurologic exam: Dense hemiparesis on the left and gaze preference to the right. Normal speech. Course Administered Medications Discontinued Medications Aspirin (Aspirin 300 Mg Supp) 600 mg OH ONE ONE Stop: 02/08/22 23:34 Last Admin: 02/08/22 23:49 Dose: 600 mg Documented by: [id number] Magnesium Sulfate/Dextrose (Magnesium Sulfate / D5w) 1 gm in 100 mls @ 100 mls/hr IV NOW STA Stop: 02/09/22 01:29 Last Admin: 02/09/22 00:34 Dose: 100 mls/hr Documented by: [id number] Sodium Chloride (Nss 1000ml) 500 mls @ 999 mls/hr IV .Q31M ONE Stop: 02/09/22 01:00 Last Admin: 02/09/22 00:35 Dose: 999 mls/hr Documented by: [id number] Ioversol (Optiray 320 125ml) 120 ml IV ONCE ONE Stop: 02/08/22 23:13 Last Admin: 02/08/22 23:12 Dose: 120 ml Documented by: [id number] Ioversol (Optiray 320 125ml) 116 ml IV ONCE ONE Stop: 02/08/22 23:23 Last Admin: 02/08/22 23:22 Dose: 116 ml Documented by: [id number] Critical Care Time Critical Care Time: Yes Total Critical Care Time: 40 Due to the patient's stroke-like symptoms, need for expeditious care frequent reassessment consultation with the stroke neurologist, call in a stroke alert, medications and reassessment, I have personally spent greater than 40 minutes of critical care time in the direct management of this patient. This includes bedside care, interpretation of diagnostic studies, and testing, discussion with consultants, patient, and family members, and other required patient management activities. This 40 minutes is in excess of all separately billable procedures. Medical Decision Making Differential Diagnosis Stroke, large vessel occlusion, vascular disease, intracranial hemorrhage, electrolyte or metabolic abnormality, trauma Medical Records Attestation: I reviewed the patient's medical records. Home Medications Current Medication List: was personally reviewed by me Laboratory Data Attestation: I reviewed the patient's lab results. Result diagrams: 02/08/22 23:12 02/08/22 23:12 Lab Results 02/08/22 02/08/22 02/08/22 Range/Units 23:12 23:12 23:12 WBC 13.05 H (4.8-10.8) K/uL RBC 4.71 (4.2-5.4) M/uL Hgb 14.2 (12.0-16.0) g/dL POC Hgb (12.0-16.0) g/dl Hct 40.8 (37-47) % POC Hct (37-47) % MCV 86.6 (80-100) fL MCH 30.1 (25-34) pg MCHC 34.8 (32-36) g/dL RDW Std Deviation 40.7 (36.4-46.3) fL RDW Coeff of Reg 12.6 (11.5-14.5) % Plt Count 318 (130-400) K/uL MPV 10.0 (7.4-10.4) fL Immature Gran % (Auto) 0.4 % Neut % (Auto) 84.4 % Lymph % (Auto) 12.3 % [place] % (Auto) 2.8 % Eos % (Auto) 0.0 % Baso % (Auto) 0.1 % Neut # (Auto) 11.02 H (1.4-6.5) K/uL Lymph # (Auto) 1.61 (1.2-3.4) K/uL [place] # (Auto) 0.36 (0.11-0.59) K/uL Eos # (Auto) 0.00 (0-0.5) K/uL Baso # (Auto) 0.01 (0-0.2) K/uL Immature Gran # (Auto) 0.05 H (0.00-0.02) K/uL RBC Morphology Unremarkable PT 11.7 (9.0-12.0) Seconds INR 1.1 (0.9-1.1) APTT 22.3 (21.0-31.0) Seconds PTT Ratio 0.8 POC Sodium (135-144) mmol/L Sodium (136-145) mmol/L POC Potassium (3.3-5.0) mmol/L Potassium (3.5-5.1) mmol/L POC Chloride (101-112) mmol/L Chloride (98-107) mmol/L Carbon Dioxide (21-32) mmol/L POC Total CO2 (24-31) mmol/L Anion Gap (3-11) POC Anion Gap (16-25) mmol/L POC BUN (7-18) mg/dl BUN (6-23) mg/dl Creatinine (0.6-1.2) mg/dl POC Creatinine (0.6-1.3) mg/dl Est Cr Clr Drug Dosing ml/min Est GFR ( Amer) ml/min Est GFR (Non-Af Amer) ml/min BUN/Creatinine Ratio (10-20) Glucose (70-99(Fasting)) mg/dl POC Glucose (70-99) mg/dl POC Glucose (other) (70-99) mg/dl Calcium (8.5-10.1) mg/dl POC Ioniz Calcium Aj (1.12-1.32) mmol/l Magnesium (1.7-2.4) mg/dl Total Bilirubin (0.2-1.0) mg/dl AST (13-39) U/L ALT (7-52) U/L Alkaline Phosphatase (34-104) U/L Total Creatine Kinase (26-192) U/L Troponin I (0-0.04) ng/ml Total Protein (6.0-8.3) gm/dl Albumin (3.4-5.0) gm/dl Globulin (2.5-4.0) gm/dl Albumin/Globulin Ratio (0.9-2) Urine Color Urine Appearance (Clear) Urine pH (4.5-7.5) Ur Specific [place] (1.000-1.030) Urine Protein (Negative) Urine Glucose (UA) (Negative) Urine Ketones (Negative) Urine Blood (Negative) Urine Nitrite (Negative) Urine Bilirubin (Negative) Urine Urobilinogen (Negative) Ur Leukocyte Esterase (Negative) Urine WBC (Auto) (0-5) /hpf Urine RBC (Auto) (0-4) /hpf U Hyaline Cast (Auto) (0-5) /lpf U Epithel Cells (Auto) (0-5) /lpf Urine Bacteria (Auto) (Negative) Salicylates (3.0-30) mg/dl SARS-CoV-2, RNA, NAAT (NEGATIVE) Blood Type O Positive Antibody Screen NEGATIVE 02/08/22 02/08/22 02/08/22 Range/Units 23:12 23:13 23:15 WBC (4.8-10.8) K/uL RBC (4.2-5.4) M/uL Hgb (12.0-16.0) g/dL POC Hgb (12.0-16.0) g/dl Hct (37-47) % POC Hct (37-47) % MCV (80-100) fL MCH (25-34) pg MCHC (32-36) g/dL RDW Std Deviation (36.4-46.3) fL RDW Coeff of Reg (11.5-14.5) % Plt Count (130-400) K/uL MPV (7.4-10.4) fL Immature Gran % (Auto) % Neut % (Auto) % Lymph % (Auto) % [place] % (Auto) % Eos % (Auto) % Baso % (Auto) % Neut # (Auto) (1.4-6.5) K/uL Lymph # (Auto) (1.2-3.4) K/uL [place] # (Auto) (0.11-0.59) K/uL Eos # (Auto) (0-0.5) K/uL Baso # (Auto) (0-0.2) K/uL Immature Gran # (Auto) (0.00-0.02) K/uL RBC Morphology PT (9.0-12.0) Seconds INR (0.9-1.1) APTT (21.0-31.0) Seconds PTT Ratio POC Sodium (135-144) mmol/L Sodium 128 L (136-145) mmol/L POC Potassium (3.3-5.0) mmol/L Potassium 3.7 (3.5-5.1) mmol/L POC Chloride (101-112) mmol/L Chloride 94 L (98-107) mmol/L Carbon Dioxide 26 (21-32) mmol/L POC Total CO2 (24-31) mmol/L Anion Gap 8 (3-11) POC Anion Gap (16-25) mmol/L POC BUN (7-18) mg/dl BUN 31 H (6-23) mg/dl Creatinine 0.62 (0.6-1.2) mg/dl POC Creatinine (0.6-1.3) mg/dl Est Cr Clr Drug Dosing 64.2 ml/min Est GFR ( Amer) 99.4 ml/min Est GFR (Non-Af Amer) 85.8 ml/min BUN/Creatinine Ratio 50.0 H (10-20) Glucose 141 H (70-99(Fasting)) mg/dl POC Glucose 147 H (70-99) mg/dl POC Glucose (other) (70-99) mg/dl Calcium 8.6 (8.5-10.1) mg/dl POC Ioniz Calcium Aj (1.12-1.32) mmol/l Magnesium 1.5 L (1.7-2.4) mg/dl Total Bilirubin 0.6 (0.2-1.0) mg/dl AST 14 (13-39) U/L ALT 13 (7-52) U/L Alkaline Phosphatase 86 (34-104) U/L Total Creatine Kinase 85 (26-192) U/L Troponin I 0.03 (0-0.04) ng/ml Total Protein 5.8 L (6.0-8.3) gm/dl Albumin 3.7 (3.4-5.0) gm/dl Globulin 2.1 L (2.5-4.0) gm/dl Albumin/Globulin Ratio 1.8 (0.9-2) Urine Color Urine Appearance (Clear) Urine pH (4.5-7.5) Ur Specific [place] (1.000-1.030) Urine Protein (Negative) Urine Glucose (UA) (Negative) Urine Ketones (Negative) Urine Blood (Negative) Urine Nitrite (Negative) Urine Bilirubin (Negative) Urine Urobilinogen (Negative) Ur Leukocyte Esterase (Negative) Urine WBC (Auto) (0-5) /hpf Urine RBC (Auto) (0-4) /hpf U Hyaline Cast (Auto) (0-5) /lpf U Epithel Cells (Auto) (0-5) /lpf Urine Bacteria (Auto) (Negative) Salicylates < 3.0 L (3.0-30) mg/dl SARS-CoV-2, RNA, NAAT (NEGATIVE) Blood Type Antibody Screen 02/08/22 02/08/22 02/08/22 Range/Units 23:24 23:30 23:30 WBC (4.8-10.8) K/uL RBC (4.2-5.4) M/uL Hgb (12.0-16.0) g/dL POC Hgb 13.3 (12.0-16.0) g/dl Hct (37-47) % POC Hct 39 (37-47) % MCV (80-100) fL MCH (25-34) pg MCHC (32-36) g/dL RDW Std Deviation (36.4-46.3) fL RDW Coeff of Reg (11.5-14.5) % Plt Count (130-400) K/uL MPV (7.4-10.4) fL Immature Gran % (Auto) % Neut % (Auto) % Lymph % (Auto) % [place] % (Auto) % Eos % (Auto) % Baso % (Auto) % Neut # (Auto) (1.4-6.5) K/uL Lymph # (Auto) (1.2-3.4) K/uL [place] # (Auto) (0.11-0.59) K/uL Eos # (Auto) (0-0.5) K/uL Baso # (Auto) (0-0.2) K/uL Immature Gran # (Auto) (0.00-0.02) K/uL RBC Morphology PT (9.0-12.0) Seconds INR (0.9-1.1) APTT (21.0-31.0) Seconds PTT Ratio POC Sodium 130 L (135-144) mmol/L Sodium (136-145) mmol/L POC Potassium 3.7 (3.3-5.0) mmol/L Potassium (3.5-5.1) mmol/L POC Chloride 93 L (101-112) mmol/L Chloride (98-107) mmol/L Carbon Dioxide (21-32) mmol/L POC Total CO2 26 (24-31) mmol/L Anion Gap (3-11) POC Anion Gap 15.0 L (16-25) mmol/L POC BUN 30 H (7-18) mg/dl BUN (6-23) mg/dl Creatinine (0.6-1.2) mg/dl POC Creatinine 0.7 (0.6-1.3) mg/dl Est Cr Clr Drug Dosing ml/min Est GFR ( Amer) ml/min Est GFR (Non-Af Amer) ml/min BUN/Creatinine Ratio (10-20) Glucose (70-99(Fasting)) mg/dl POC Glucose (70-99) mg/dl POC Glucose (other) 141 H (70-99) mg/dl Calcium (8.5-10.1) mg/dl POC Ioniz Calcium Aj 1.20 (1.12-1.32) mmol/l Magnesium (1.7-2.4) mg/dl Total Bilirubin (0.2-1.0) mg/dl AST (13-39) U/L ALT (7-52) U/L Alkaline Phosphatase (34-104) U/L Total Creatine Kinase (26-192) U/L Troponin I (0-0.04) ng/ml Total Protein (6.0-8.3) gm/dl Albumin (3.4-5.0) gm/dl Globulin (2.5-4.0) gm/dl Albumin/Globulin Ratio (0.9-2) Urine Color Yellow Urine Appearance Clear (Clear) Urine pH 7.0 (4.5-7.5) Ur Specific [place] 1.044 H (1.000-1.030) Urine Protein Negative (Negative) Urine Glucose (UA) Negative (Negative) Urine Ketones Negative (Negative) Urine Blood Negative (Negative) Urine Nitrite Negative (Negative) Urine Bilirubin Negative (Negative) Urine Urobilinogen Negative (Negative) Ur Leukocyte Esterase Trace H (Negative) Urine WBC (Auto) 1-5 (0-5) /hpf Urine RBC (Auto) 0-4 (0-4) /hpf U Hyaline Cast (Auto) 1-5 (0-5) /lpf U Epithel Cells (Auto) 20-30 H (0-5) /lpf Urine Bacteria (Auto) Negative (Negative) Salicylates (3.0-30) mg/dl SARS-CoV-2, RNA, NAAT NEGATIVE (NEGATIVE) Blood Type Antibody Screen Imaging Data Attestation: I personally reviewed and interpreted this imaging study as follows: My Impression: Head CTthere is some edema in the right basal ganglia. Chest x-rayno acute infiltrate, failure, pneumothorax seen. Radiologist's Impression: CT HEAD: Moderate edema right basal ganglia, compatible with acute infarct. No bleed, hydrocephalus or herniation. CTA HEAD: Moderate ectatic right supraclinoid ICA. Persistent trigeminal artery, normal variant anatomy, that supplies the posterior circulation. No aneurysm or large vessel occlusion. Specifically, right MCA patent. Results discussed with ER MD. CTA NECK: No dissection, vessel occlusion or significant stenosis. Small bilateral thyroid nodules. CT C SPINE: Moderate degenerative disc and facet disease throughout the cervical spine. No fracture or acute bony abnormality. ECG Data Attestation: I personally reviewed and interpreted this ECG as follows: Indication: + weakness Rate (beats per minute): 72 Rhythm: + normal sinus ECG Intervals/blocks: + Normal QRS, + Normal QT and + Normal OH ECG [place]: + Normal ECG ST segments: + Nonspecific ST abnormalities ECG Findings: + Other (Poor baseline) Comparison ECG Date: from (12/17/17) Change: no significant change MDM Narrative This patient comes in as a stroke alert. I saw her immediately upon arrival. She was not registered and we do not have a name so they quickly did that she already had an IV blood sugar was checked on route was normal we sent her quickly over the CAT scan and CAT scan/CT of the head and neck. She was reassessed frequently. We did page [facility] stroke team as well. She is outside the TPA window as she is approximately 9 hours out however she may still be a endovascular candidate. I did talk to Dr. Squires who agreed that she was outside the TPA window. She wanted to see what the CAT scans showed to see if there is any endovascular intervention. The CAT scans came back and did show a infarct in the right basal ganglia. There is no large vessel occlusion and there is nothing amenable to endovascular intervention at this point unfor tunately. Dr. Squires reviewed the case and images and agrees. The patient's sodium was mildly low at 128 her mag was also mildly low at 1.5. She was given a small amount of IV hydration with 500 cc as well as I ordered IV magnesium 1 g. EKG does not show any ischemic changes or ectopy. She did apparently lay on the floor but she has a normal CK and she has nothing to just acute rhabdomyolysis. She is protecting her airway and speaking normally. I did consult Dr. Ordaz to see her in the ER for further treatment and evaluation so she will need to be admitted. Continuous cardiac monitoring: Orders placed in EMR for continuous cart during. Upon my intepertation, she was noted to be in normal sinus rhythm with a rate of 60 Impression & Plan Stroke, Acute left-sided muscle weakness, Fall, Hypomagnesemia, Lab test ne gative for COVID-19 virus Discharge Plan Visit Data Chief Complaint: Stroke Alert Stated Complaint: FALL/STROKE SYMPTOMS ED Provider: Josué Prather Discharge Problem: Stroke, Acute left-sided muscle weakness, Fall, Hypomagnesemia, Lab test negative for COVID-19 virus Forms Stand Alone Forms: My [facility] Prescriptions Prescriptions: No Action bisoprolol-hydrochlorothiazide [Ziac] 5-6.25 mg Tablet 1 tab PO QAM RF: 0 chlorthalidone 25 mg Tablet 25 mg PO QAM RF: 0 simvastatin 20 mg Tablet 20 mg PO PM RF: 0 cholecalciferol (vitamin D3) [Vitamin D3] 2,000 unit Tablet 2,000 unit PO QPM RF: 0 omeprazole 40 mg capsule,delayed release(DR/EC) 20 mg PO DAILY RF: 0 multivitamin Tablet 1 tab PO DAILY RF: 0 psyllium husk [Fiber (psyllium husk)] 0.4 gram Capsule 0.8 g PO DAILY RF: 0 Referrals Referrals: Abdirahman,Ludwig, MD [Primary Care Provider] - Discharge Problem: Stroke Qualifiers: CVA mechanism: unspecified Qualified Code(s): I63.9 - Cerebral infarction, unspecified Fall Qualifiers: Encounter type: initial encounter Qualified Code(s): W19.XXXA - Unspecified fall, initial encounter
[2022-02-08] MEDS ORDERED: OPTIRAY 320 125ml IV ONE ×2 (23:12→23:22)
[2022-02-08 23:23] LABS: Hematocrit (blood only) 40.8 % (37-47); Hemoglobin 14.2 g/dL (12.0-16.0); Mean Corpuscular Hemoglobin 30.1 pg (25-34); Mean Corpuscular Hgb Conc 34.8 g/dL (32-36); Mean Corpuscular Volume 86.6 fL (80-100); Platelet Count 318 K/uL (130-400); RDW Coefficient of Variation 12.6 % (11.5-14.5); RDW Standard Deviation 40.7 fL (36.4-46.3); Red Blood Count 4.71 M/uL (4.2-5.4); White Blood Count 13.05 K/uL (4.8-10.8)
[2022-02-08] MEDS ORDERED: ASPIRIN 300 MG SUPP PR ONE (23:33)
[2022-02-08 23:37] LABS: INR 1.1 (0.9-1.1); Partial Thromboplastin Ratio 0.8; Partial Thromboplastin Time 22.3 Seconds (21.0-31.0); Prothrombin Time 11.7 Seconds (9.0-12.0)
[2022-02-08 23:38] LABS: iSTAT Creatinine 0.7 mg/dl (0.6-1.3); iSTAT Hemoglobin 13.3 g/dl (12.0-16.0); iSTAT Ionized Calcium 1.2 mmol/l (1.12-1.32); iSTAT Potassium 3.7 mmol/L (3.3-5.0)
[2022-02-08 23:53] LABS: Troponin I 0.03 ng/ml (0-0.04)
[2022-02-08 23:54] LABS: Basophils # (auto) 0.01 K/uL (0-0.2); Basophils % (auto) 0.1 %; Immature Granulocytes # (auto) 0.05 K/uL (0.00-0.02); Immature Granulocytes % (auto) 0.4 %; Lymphocytes # (auto) 1.61 K/uL (1.2-3.4); Lymphocytes % (auto) 12.3 %; Monocytes # (auto) 0.36 K/uL (0.11-0.59); Monocytes % (auto) 2.8 %; Neutrophils # (auto) 11.02 K/uL (1.4-6.5); Neutrophils % (auto) 84.4 %; RBC Morphology Unremarkable
[2022-02-08 23:55] LABS: Albumin Globulin Ratio 1.8 (0.9-2); Albumin Level 3.7 gm/dl (3.4-5.0); Bilirubin,Total 0.6 mg/dl (0.2-1.0); Calcium 8.6 mg/dl (8.5-10.1); Creatinine Clr Calc Pharmacy 64.2 ml/min; Est GFR (African American) 99.4 ml/min; Est GFR (Non-African American) 85.8 ml/min; Globulin 2.1 gm/dl (2.5-4.0); Magnesium 1.5 mg/dl (1.7-2.4); Potassium 3.7 mmol/L (3.5-5.1); Total Protein 5.8 gm/dl (6.0-8.3)
[2022-02-09 00:03] LABS: Appearance Urine Clear (Clear); Bacteria Urine Automated Negative (Negative); Bilirubin Urine Negative (Negative); Blood Urine Negative (Negative); Color Urine Yellow; Epithelial Cell Urine Auto 20-30 /lpf (0-5); Glucose Urine UA Negative (Negative); Ketones Urine Negative (Negative); Leukocyte Esterase Urine Trace (Negative); Nitrite Urine Negative (Negative); Protein Urine Negative (Negative); RBC Urine Automated 0-4 /hpf (0-4); Specific Gravity Urine 1.044 (1.000-1.030); Urobilinogen Urine Negative (Negative)
[2022-02-09] MEDS ORDERED: SODIUM CHLORIDE 0.9% 1000ML 500 ML IV ONE (00:30)
[2022-02-09] MEDS ORDERED: MAGNESIUM SULFATE / D5W 1 GM/100 ML BAG IV STA (00:30)
--- NOTE | 2022-02-09 01:06 | History & Physical Report ---
Date of Service February 09, 2022 Assessment & Plan (1) Stroke: Plan: 81-year-old female with a past medical history of stroke, PFO, breast cancer, coronary artery disease, hypertension, GERD presents as a stroke alert for evaluation of strokelike symptoms diagnosed with a right basal ganglia stroke admitted for stroke protocol without TPA. #Fall and acute left-sided muscle weakness secondary to right basal ganglia stroke Upon presentation to the hospital patient was outside the window for TPA. Imaging studies in the emergency department were consistent with a right basal ganglia stroke as per physical exam findings. [place] stroke team was consulted and agree with the findings that there is no indication for TPA and nothing amendable to endovascular intervention. Patient will be admitted per stroke protocol without TPA -Admit to telemetry -Aspirin given in the ED -Neurovascular checks -BRAIN MRI in the am -NPO pending Speech -AM Stroke Labs -Permissive HTN -Neurology consulted #Electrolyte disturbances -Daily BMP replete as indicated -Hypomagnesemia on admission given 1 g of magnesium in the ED #Hypertension Holding home antihypertensive in the setting of permissive hypertension -Resume when able per neuro #GERD Continue omeprazole #Coronary artery disease -For now continue simvastatin however suspect will need more aggressive statin agent. FENa: Pending speech and swallow evaluation Code Status: Full code DVT PPX: Contraindicated, SCDs PT/OT: Consulted Case Management: Consulted Dispo: Telemetry Dominic Lund MD PGY 3, FCM This chart was completed utilizing [employer] voice recognition software. Grammatical errors, random word insertions, pronoun errors, and in complete sentences are an occasional consequence of the system. Any questions or concerns about the content, text, or information contained within the body of this dictation should be addressed directly to the physician for clarification. (2) Acute left-sided muscle weakness: (3) Fall: (4) Hypomagnesemia: (5) Intraductal carcinoma of right breast: (6) Hypertension: History of Present Illness Primary Care Provider: Ludwig Gary MD 81-year-old female with a past medical history of stroke, PFO, breast cancer, coronary artery disease, hypertension, GERD presents as a stroke alert for evaluation of strokelike symptoms diagnosed with a right basal ganglia stroke admitted for stroke protocol without TPA. The patient notes that she lives alone and was in her usual state of health until around 230 this afternoon when she fell. She states she fell because she was weak and she laid on the floor this was approximately 9 hours prior to arrival. She states that the weakness is located in her left arm and leg and is significant Upon arrival to the emergency department given the timing the patient was outside of the TPA window, she was urgently rushed for imaging which demonstrated an infarct of the right basal ganglia, no large vessel occlusion and nothing amenable to endovascular intervention. Dr. Squires from the [place] stroke team agreed that the patient was outside the TPA window and reviewed the case his images and agreed with the emergency department's assessment. Chest x- ray was negative, CTA neck was negative, CT C-spine was negative. Routine labs were obtained CBC was notable for a white count of 13 with a neutrophil predominance, coags were normal, chemistries demonstrated a sodium of 128, BUN of 38, creatinine 0.62, glucose 141, magnesium 1.5 liver function studies were within normal limits, total protein was 5.8, urine was negative, COVID negative. Given the patient's imaging and laboratory findings the hospitalist service was consulted for admission for the stroke protocol without TPA. On upon arrival to the room the patient was lying comfortably in bed denying any pain or other concerning symptoms. She reiterated a history as described above. She notes that she was lying on the floor for at least 7 hours. While she was on the floor she was struggling to reach her cell phone which was on a desk. Eventually she was able to contact 911. Acute concerns relate to stroke severity, all questions answered Allergies Allergy/AdvReac Type Severity Reaction Status Date / Time amlodipine Allergy Intermediate edema Verified 02/08/22 23:14 atorvastatin Allergy Intermediate joint pain Verified 02/08/22 23:14 lisinopril Allergy Intermediate cough Verified 02/08/22 23:14 buck Allergy Intermediate rash Verified 02/08/22 23:14 Penicillins Allergy Unknown ? RASH Verified 02/08/22 23:14 CHILD Home Medications Medication Instructions Recorded Confirmed Type cholecalciferol (vitamin D3) 50 2,000 unit PO QPM 04/18/19 02/08/22 History mcg (2,000 unit) tablet (Vitamin D3) multivitamin 1 tab PO DAILY 02/22/20 02/08/22 History omeprazole 40 mg capsule,delayed 20 mg PO DAILY cap 09/10/21 02/08/22 History release psyllium husk 0.4 gram capsule 0.8 g PO DAILY 02/08/22 02/08/22 History (Fiber (psyllium husk)) bisoprolol fumarate 5 mg tablet 5 mg PO DAILY #30 tab 02/14/22 Rx losartan 25 mg tablet 25 mg PO DAILY #30 tab 02/14/22 Rx rosuvastatin 20 mg tablet (Crestor) 20 mg PO QPM #30 tab 02/14/22 Rx Past Med/Surg History Medical History Bicuspid aortic valve No on 12/06/17 echo. Mild-mod AI. Diverticular disease H/O: CVA (cerebrovascular accident) Pt recalls symptoms ~1974 but not known stroke until noted on brain imaging a few years ago. Hiatal hernia History of anemia Hx of breast cancer RIGHT, S/P LUMPECTOMY, CHEMO AND RADIATION, 2015 Hyperlipidemia Hypertension PFO (patent foramen ovale) Pulmonary nodule MONITORED YEARLY WITH CT Torn rotator cuff RIGHT Surgical History History of bunionectomy of right great toe History of colonoscopy History of lumpectomy of right breast History of repair of hiatal hernia Hx of hysterectomy TOTAL Social History Smoking Status: Former smoker Second Hand Exposure: No; Hx Alcohol Use: Yes Alcohol type: wine Hx Substance Use: No Preferred Language: [place] Citizen Communication Ability: Effective Visual Impairment: No Limitations [employer] Required: No Beliefs That Will Affect Care: None marital status: / Current Living Situation: Alone Feels Safe at Home: Yes Assistive Devices: Glasses Review of Systems Review of Systems: as above Physical Exam Physical Exam: General: No acute distress lying in bed HEENT: Normocephalic atraumatic, gaze towards the right Neck: Normal visual inspection Cardiac: Regular rate and rhythm I did not appreciate significant murmurs rubs or gallops, normal S1, normal S2, 1+ pedal edema, negative calf tenderness Respiratory: Clear to auscultation bilaterally with symmetrical chest expansion did not appreciate any significant wheezes, rales, rhonchi GI: Soft, nontender, nondistended, bowel sounds present MSK: Complete hemiparesis of the left side Neuro: Alert and oriented x4, gross deficits in the CN II through XII on the left side, of note, the trigeminal nerve was intact, Psych: Calm and cooperative Results & Data Results & Data ([facility]) Vital Signs (Past 12 Hours) Vital Signs Temp Pulse Pulse Resp BP BP Pulse Ox 02/09/22 00:45 59 L 18 158/79 H 97 02/09/22 00:30 66 18 153/100 H 98 02/09/22 00:15 62 20 168/71 H 97 02/09/22 00:00 63 20 150/93 H 95 02/08/22 23:32 36.5 C 69 22 167/66 H 99 02/08/22 23:25 36.5 C 73 24 167/66 H 98 Laboratory Results 02/08/22 02/08/22 02/08/22 Range/Units 23:30 23:30 23:24 WBC (4.8-10.8) K/uL RBC (4.2-5.4) M/uL Hgb (12.0-16.0) g/dL POC Hgb 13.3 (12.0-16.0) g/dl Hct (37-47) % POC Hct 39 (37-47) % MCV (80-100) fL MCH (25-34) pg MCHC (32-36) g/dL RDW Std Deviation (36.4-46.3) fL RDW Coeff of Reg (11.5-14.5) % Plt Count (130-400) K/uL MPV (7.4-10.4) fL Immature Gran % (Auto) % Neut % (Auto) % Lymph % (Auto) % Harper % (Auto) % Eos % (Auto) % Baso % (Auto) % Neut # (Auto) (1.4-6.5) K/uL Lymph # (Auto) (1.2-3.4) K/uL Harper # (Auto) (0.11-0.59) K/uL Eos # (Auto) (0-0.5) K/uL Baso # (Auto) (0-0.2) K/uL Immature Gran # (Auto) (0.00-0.02) K/uL RBC Morphology PT (9.0-12.0) Seconds INR (0.9-1.1) APTT (21.0-31.0) Seconds PTT Ratio POC Sodium 130 L (135-144) mmol/L Sodium (136-145) mmol/L POC Potassium 3.7 (3.3-5.0) mmol/L Potassium (3.5-5.1) mmol/L POC Chloride 93 L (101-112) mmol/L Chloride (98-107) mmol/L Carbon Dioxide (21-32) mmol/L POC Total CO2 26 (24-31) mmol/L Anion Gap (3-11) POC Anion Gap 15.0 L (16-25) mmol/L POC BUN 30 H (7-18) mg/dl BUN (6-23) mg/dl Creatinine (0.6-1.2) mg/dl POC Creatinine 0.7 (0.6-1.3) mg/dl Est Cr Clr Drug Dosing ml/min Est GFR ( Amer) ml/min Est GFR (Non-Af Amer) ml/min BUN/Creatinine Ratio (10-20) Glucose (70-99(Fasting)) mg/dl POC Glucose (70-99) mg/dl POC Glucose (other) 141 H (70-99) mg/dl Calcium (8.5-10.1) mg/dl POC Ioniz Calcium Aj 1.20 (1.12-1.32) mmol/l Magnesium (1.7-2.4) mg/dl Total Bilirubin (0.2-1.0) mg/dl AST (13-39) U/L ALT (7-52) U/L Alkaline Phosphatase (34-104) U/L Total Creatine Kinase (26-192) U/L Troponin I (0-0.04) ng/ml Total Protein (6.0-8.3) gm/dl Albumin (3.4-5.0) gm/dl Globulin (2.5-4.0) gm/dl Albumin/Globulin Ratio (0.9-2) Urine Color Yellow Urine Appearance Clear (Clear) Urine pH 7.0 (4.5-7.5) Ur Specific [place] 1.044 H (1.000-1.030) Urine Protein Negative (Negative) Urine Glucose (UA) Negative (Negative) Urine Ketones Negative (Negative) Urine Blood Negative (Negative) Urine Nitrite Negative (Negative) Urine Bilirubin Negative (Negative) Urine Urobilinogen Negative (Negative) Ur Leukocyte Esterase Trace H (Negative) Urine WBC (Auto) 1-5 (0-5) /hpf Urine RBC (Auto) 0-4 (0-4) /hpf U Hyaline Cast (Auto) 1-5 (0-5) /lpf U Epithel Cells (Auto) 20-30 H (0-5) /lpf Urine Bacteria (Auto) Negative (Negative) Salicylates (3.0-30) mg/dl SARS-CoV-2, RNA, NAAT NEGATIVE (NEGATIVE) Blood Type Antibody Screen 02/08/22 02/08/22 02/08/22 Range/Units 23:15 23:13 23:12 WBC (4.8-10.8) K/uL RBC (4.2-5.4) M/uL Hgb (12.0-16.0) g/dL POC Hgb (12.0-16.0) g/dl Hct (37-47) % POC Hct (37-47) % MCV (80-100) fL MCH (25-34) pg MCHC (32-36) g/dL RDW Std Deviation (36.4-46.3) fL RDW Coeff of Reg (11.5-14.5) % Plt Count (130-400) K/uL MPV (7.4-10.4) fL Immature Gran % (Auto) % Neut % (Auto) % Lymph % (Auto) % Harper % (Auto) % Eos % (Auto) % Baso % (Auto) % Neut # (Auto) (1.4-6.5) K/uL Lymph # (Auto) (1.2-3.4) K/uL Harper # (Auto) (0.11-0.59) K/uL Eos # (Auto) (0-0.5) K/uL Baso # (Auto) (0-0.2) K/uL Immature Gran # (Auto) (0.00-0.02) K/uL RBC Morphology PT (9.0-12.0) Seconds INR (0.9-1.1) APTT (21.0-31.0) Seconds PTT Ratio POC Sodium (135-144) mmol/L Sodium 128 L (136-145) mmol/L POC Potassium (3.3-5.0) mmol/L Potassium 3.7 (3.5-5.1) mmol/L POC Chloride (101-112) mmol/L Chloride 94 L (98-107) mmol/L Carbon Dioxide 26 (21-32) mmol/L POC Total CO2 (24-31) mmol/L Anion Gap 8 (3-11) POC Anion Gap (16-25) mmol/L POC BUN (7-18) mg/dl BUN 31 H (6-23) mg/dl Creatinine 0.62 (0.6-1.2) mg/dl POC Creatinine (0.6-1.3) mg/dl Est Cr Clr Drug Dosing 64.2 ml/min Est GFR ( Amer) 99.4 ml/min Est GFR (Non-Af Amer) 85.8 ml/min BUN/Creatinine Ratio 50.0 H (10-20) Glucose 141 H (70-99(Fasting)) mg/dl POC Glucose 147 H (70-99) mg/dl POC Glucose (other) (70-99) mg/dl Calcium 8.6 (8.5-10.1) mg/dl POC Ioniz Calcium Aj (1.12-1.32) mmol/l Magnesium 1.5 L (1.7-2.4) mg/dl Total Bilirubin 0.6 (0.2-1.0) mg/dl AST 14 (13-39) U/L ALT 13 (7-52) U/L Alkaline Phosphatase 86 (34-104) U/L Total Creatine Kinase 85 (26-192) U/L Troponin I 0.03 (0-0.04) ng/ml Total Protein 5.8 L (6.0-8.3) gm/dl Albumin 3.7 (3.4-5.0) gm/dl Globulin 2.1 L (2.5-4.0) gm/dl Albumin/Globulin Ratio 1.8 (0.9-2) Urine Color Urine Appearance (Clear) Urine pH (4.5-7.5) Ur Specific [place] (1.000-1.030) Urine Protein (Negative) Urine Glucose (UA) (Negative) Urine Ketones (Negative) Urine Blood (Negative) Urine Nitrite (Negative) Urine Bilirubin (Negative) Urine Urobilinogen (Negative) Ur Leukocyte Esterase (Negative) Urine WBC (Auto) (0-5) /hpf Urine RBC (Auto) (0-4) /hpf U Hyaline Cast (Auto) (0-5) /lpf U Epithel Cells (Auto) (0-5) /lpf Urine Bacteria (Auto) (Negative) Salicylates < 3.0 L (3.0-30) mg/dl SARS-CoV-2, RNA, NAAT (NEGATIVE) Blood Type Antibody Screen 02/08/22 02/08/22 02/08/22 Range/Units 23:12 23:12 23:12 WBC 13.05 H (4.8-10.8) K/uL RBC 4.71 (4.2-5.4) M/uL Hgb 14.2 (12.0-16.0) g/dL POC Hgb (12.0-16.0) g/dl Hct 40.8 (37-47) % POC Hct (37-47) % MCV 86.6 (80-100) fL MCH 30.1 (25-34) pg MCHC 34.8 (32-36) g/dL RDW Std Deviation 40.7 (36.4-46.3) fL RDW Coeff of Reg 12.6 (11.5-14.5) % Plt Count 318 (130-400) K/uL MPV 10.0 (7.4-10.4) fL Immature Gran % (Auto) 0.4 % Neut % (Auto) 84.4 % Lymph % (Auto) 12.3 % Harper % (Auto) 2.8 % Eos % (Auto) 0.0 % Baso % (Auto) 0.1 % Neut # (Auto) 11.02 H (1.4-6.5) K/uL Lymph # (Auto) 1.61 (1.2-3.4) K/uL Harper # (Auto) 0.36 (0.11-0.59) K/uL Eos # (Auto) 0.00 (0-0.5) K/uL Baso # (Auto) 0.01 (0-0.2) K/uL Immature Gran # (Auto) 0.05 H (0.00-0.02) K/uL RBC Morphology Unremarkable PT 11.7 (9.0-12.0) Seconds INR 1.1 (0.9-1.1) APTT 22.3 (21.0-31.0) Seconds PTT Ratio 0.8 POC Sodium (135-144) mmol/L Sodium (136-145) mmol/L POC Potassium (3.3-5.0) mmol/L Potassium (3.5-5.1) mmol/L POC Chloride (101-112) mmol/L Chloride (98-107) mmol/L Carbon Dioxide (21-32) mmol/L POC Total CO2 (24-31) mmol/L Anion Gap (3-11) POC Anion Gap (16-25) mmol/L POC BUN (7-18) mg/dl BUN (6-23) mg/dl Creatinine (0.6-1.2) mg/dl POC Creatinine (0.6-1.3) mg/dl Est Cr Clr Drug Dosing ml/min Est GFR ( Amer) ml/min Est GFR (Non-Af Amer) ml/min BUN/Creatinine Ratio (10-20) Glucose (70-99(Fasting)) mg/dl POC Glucose (70-99) mg/dl POC Glucose (other) (70-99) mg/dl Calcium (8.5-10.1) mg/dl POC Ioniz Calcium Aj (1.12-1.32) mmol/l Magnesium (1.7-2.4) mg/dl Total Bilirubin (0.2-1.0) mg/dl AST (13-39) U/L ALT (7-52) U/L Alkaline Phosphatase (34-104) U/L Total Creatine Kinase (26-192) U/L Troponin I (0-0.04) ng/ml Total Protein (6.0-8.3) gm/dl Albumin (3.4-5.0) gm/dl Globulin (2.5-4.0) gm/dl Albumin/Globulin Ratio (0.9-2) Urine Color Urine Appearance (Clear) Urine pH (4.5-7.5) Ur Specific [place] (1.000-1.030) Urine Protein (Negative) Urine Glucose (UA) (Negative) Urine Ketones (Negative) Urine Blood (Negative) Urine Nitrite (Negative) Urine Bilirubin (Negative) Urine Urobilinogen (Negative) Ur Leukocyte Esterase (Negative) Urine WBC (Auto) (0-5) /hpf Urine RBC (Auto) (0-4) /hpf U Hyaline Cast (Auto) (0-5) /lpf U Epithel Cells (Auto) (0-5) /lpf Urine Bacteria (Auto) (Negative) Salicylates (3.0-30) mg/dl SARS-CoV-2, RNA, NAAT (NEGATIVE) Blood Type O Positive Antibody Screen NEGATIVE Code Status & VTE Plan Code Status Full Supervising Physician Co-Signing Physician Notes Attending addendum: I have physically seen this patient, have supervised the medical residents timbo dillard, and agree with the H&P unless as otherwise noted. Assessment and Plan: Stroke alert/right basal ganglia infarct- The patient will be admitted to telemetry for serial cardiac enzymes, serial EKG's, cardiac rhythm monitoring and a 2-D echocardiogram with Dopplers. Stroke that TPA order set Order MRI brain without contrast Consult PT/OT/speech. Hold any oral medications until cleared by speech therapy Permissive hypertension Consult neurology Hypomagnesemia- Magnesium 1.5 on admission Replete with IV treatment, and recheck laboratories in a.m. CAD/hypertension- Admit to telemetry as noted Follow serial cardiac enzymes Hyperlipidemia- Check fasting lipid panel Continue high-dose statin rosuvastatin GERD change omeprazole p.o. to pantoprazole IV Remaining orders and notations as noted (1) Fall Encounter type: initial encounter Qualified Code(s): W19.XXXA - Unspecified fall, initial encounter (2) Stroke CVA mechanism: unspecified Qualified Code(s): I63.9 - Cerebral infarction, unspecified
[2022-02-09] MEDS ORDERED: PHARMACIST DISCHARGE MED REC CONSULT PRN (02:59)
[2022-02-09] MEDS ORDERED: MAGNESIUM HYDROXIDE SUSP 30 ML UDC PO PRN (02:59)
[2022-02-09] MEDS ORDERED: ALUMINUM/MAGNESIUM SUSP 30 ML UDC PO PRN (02:59)
[2022-02-09] MEDS ORDERED: ONDANSETRON INJ 2 MG/ML 2 ML VIAL IV PRN (02:59)
[2022-02-09] MEDS: LACTATED RINGER'S 1,000 ML IV SCH ×2 (03:56→13:49)
--- NOTE | 2022-02-09 07:10 | CT Scan Report ---
CT cervical spine wo con CLINICAL HISTORY: fall TECHNIQUE: Multidetector row helical CT of the cervical spine was performed without administration of intravenous contrast. Coronal and sagittal reformations were obtained. Automated dose lowering techn iques and/or adjustment according to patient size were utilized for this exam. Comparison: None available at the time of this dictation. FINDINGS: No acute fractures or subluxations are identified. The vertebral body heights and disk spaces are wel l maintained. The alignment is normal. Biapical scarring is seen. IMPRESSION: No evidence of acute bony injury. ACT 112: Negative or not required by law. Electronically signed by: James Tee M.D. 02/09/2022 7:08 AM
[2022-02-09 07:39] LABS: Hematocrit (blood only) 42.8 % (37-47); Mean Corpuscular Hemoglobin 30.4 pg (25-34); Mean Corpuscular Volume 86.8 fL (80-100); Mean Platelet Volume 10.6 fL (7.4-10.4); Platelet Count 336 K/uL (130-400); RDW Coefficient of Variation 12.9 % (11.5-14.5); RDW Standard Deviation 41.1 fL (36.4-46.3); Red Blood Count 4.93 M/uL (4.2-5.4); White Blood Count 14.62 K/uL (4.8-10.8)
[2022-02-09 07:40] LABS: Estimated Average Glucose 117 mg/dl; Hemoglobin A1C 5.7 % (4.5-5.6)
--- NOTE | 2022-02-09 07:48 | CT Scan Report ---
HEAD CT NONCONTRAST CT DOSE: HISTORY: Fall. Stroke Like Symptoms TECHNIQUE: Multiaxial CT images of the head were performed without the use of intravenous contrast. A utomated exposure control was utilized for this study. A dose lowering technique was utilized adheri ng to the principles of ALARA. Comparison: Head CT 10/25/2021. Findings: Small fluid level within the left maxillary sinus. There is an old small infarct within the right cerebellar hemisphere. Right basal ganglia edema/hypodensity consistent with an acute infarct. This results in mild mass effect along the right lateral ventricle with minimal left midline shift. No intracranial hemorrhage or mass identified. Impression: Right basal ganglia acute infarct. ACT 112: Negative or not required by law. Electronically signed by: Rodolfo Youngblood M.D. 02/09/2022 7:46 AM
[2022-02-09 08:01] LABS: Basophils # (auto) 0.01 K/uL (0-0.2); Basophils % (auto) 0.1 %; Eosinophils # (auto) 0.01 K/uL (0-0.5); Eosinophils % (auto) 0.1 %; Immature Granulocytes # (auto) 0.05 K/uL (0.00-0.02); Immature Granulocytes % (auto) 0.3 %; Lymphocytes # (auto) 1.99 K/uL (1.2-3.4); Lymphocytes % (auto) 13.6 %; Monocytes # (auto) 0.71 K/uL (0.11-0.59); Monocytes % (auto) 4.9 %; Neutrophils # (auto) 11.85 K/uL (1.4-6.5)
--- NOTE | 2022-02-09 08:01 | CT Scan Report ---
HEAD CTA HISTORY: Fall. Left-sided weakness. Stroke Like Symptoms TECHNIQUE: Multiaxial CT images of the head were performed following the intravenous administration o f contrast to evaluate the major cerebral vessels. Maximum intensity projection images were also obta ined. A dose lowering technique was utilized adhering to the principles of ALARA. COMPARISON: Head CT 02/08/2022 and 10/25/2021. FINDINGS: There is again noted edema/hypodensity within the right basal ganglia consistent with acute infarct. This results in mild mass effect along the right lateral ventricle. No intracranial hemorrh age identified at this time. The major dural venous sinuses are patent. The bilateral vertebral arter ies terminate into the posterior inferior cerebellar arteries. The basilar artery is is absent with a persistent right-sided trigeminal artery supplying the posterior circulation. This is considered to be a normal variant. The bilateral intracranial internal carotid arteries are widely patent. The bila teral ACAs and left MCA are widely patent. Focal high-grade stenosis versus occlusion at the takeoff of the superior division of the right M2 segment best seen on axial image 140. There is also focal hi gh-grade stenosis at the distal superior division of the right MCA on image 157. IMPRESSION: 1. Focal area of high-grade stenosis versus occlusion at the takeoff of the superior division of the right M2 segment and an additional focal area of high-grade stenosis at the distal superior division of the right epididymis as described above. 2. Hypodensity within the right basal ganglia consistent with an acute infarct. 3. Additional findings as described above. ACT 112: Negative or not required by law. Electronically signed by: Rodolfo Youngblood M.D. 02/09/2022 7:59 AM
[2022-02-09 08:05] LABS: BUN Creatinine Ratio 42.1 (10-20); Calcium 9.4 mg/dl (8.5-10.1); Creatinine Clr Calc Pharmacy 69.4 ml/min; Est GFR (African American) 102.2 ml/min; Est GFR (Non-African American) 88.2 ml/min; Potassium 3.8 mmol/L (3.5-5.1)
--- NOTE | 2022-02-09 08:28 | Neurology Consultation ---
Date of Consultation February 09, 2022 Assessment & Plan (1) Stroke: Acute right middle cerebral artery territory stroke with evidence of an evolving infarct within the right basal ganglia with mild associated mass-effect along the right lateral ventricle, no hemorrhage. She has a focal high-grade stenosis versus occlusion of the takeoff of the superior division of the right M2 segment and an additional area of high-grade stenosis at the distal superior division of the right MCA. Stroke risk factors for this patient include history of cerebellar stroke, PFO, and hypertension. Patient will need MRI of the brain and transthoracic echocardiogram with bubble study. Consider obtaining 30-day mobile cardiac outpatient telemetry. Continue with aspirin suppositories 300 mg per rectum per day. May transition to daily low-dose aspirin once cleared by speech and swallowing. Would consider upgrading patient's statin therapy, LDL goal less than 70. Permissive hypertension appropriate for the time being, systolic blood pressure goal 140 to 160 mmHg. Patient will need evaluation with PT/OT/speech therapy. History of Present Illness Reason for Consultation: Stroke Requesting Physician: Dominic Lund MD Attending Physician: Kae Younger MD History of Present Illness The patient is a 81-year old female with a chief complaint of left-sided weakness. She had fallen yesterday afternoon, was weak, and laid on the floor, approximately 9 hours prior to her assessment in the emergency department. She was observed to have a right gaze preference and severe left hemiparesis, arm greater than leg. Her speech was felt to be normal at that time. Her case was evaluated by the stroke specialist at [facility]. CT angiography of the head and neck were completed. She was not considered an appropriate candidate for administration of thrombolytics or other intervention. She was outside of the window for thrombolytics and she did not have a thrombus amenable to endovascular treatment. She was given 600 mg of aspirin per rectum during her assessment in the emergency department. It does not look like she takes aspirin or other blood thinners as an outpatient. She does take simvastatin 20 mg/day. She has a reported intolerance to atorvastatin, joint pain. Past medical history notable for stroke, PFO, breast cancer, coronary artery disease, hypertension and GERD. She is currently off the floor for imaging this morning. A CT of the head completed yesterday revealed an acute infarct within the right basal ganglia, no hemorrhage. CT angiography of the head have revealed a high- grade stenosis versus occlusion of the takeoff of the superior division of the right M2 segment and a high-grade stenosis at the distal superior division of the right MCA. Patient returned to her room this morning. She relate additional details regarding her history. She was at home in her condominium when she fell to the floor due to left-sided weakness, she was able to get up on her own but did manage to call for help on her telephone. She denies headache. She is aware that her left side is weak, especially the arm. She denies vision loss but does seem to be aware that she has a tendency to look to the right, but then states that she is able to look to the left when asked to do so. Her speech is relatively clear and nondysarthric. She is mildly lethargic, denies headache. When asked about her history of stroke, she indicates that she had a cerebellar stroke many years ago, in her 30s, she recalls having significant vertigo and ataxia at that time, these issues eventually resolved. She indicates that she does not take aspirin or other blood thinners as an outpatient. She does not seem to be aware of her history of PFO. Allergies Allergy/AdvReac Type Severity Reaction Status Date / Time amlodipine Allergy Intermediate edema Verified 02/08/22 23:14 atorvastatin Allergy Intermediate joint pain Verified 02/08/22 23:14 lisinopril Allergy Intermediate cough Verified 02/08/22 23:14 buck Allergy Intermediate rash Verified 02/08/22 23:14 Penicillins Allergy Unknown ? RASH Verified 02/08/22 23:14 CHILD Home Medications Medication Instructions Recorded Confirmed Type bisoprolol 5 1 tab PO QAM 04/18/19 02/08/22 History mg-hydrochlorothiazide 6.25 mg tablet (Ziac) chlorthalidone 25 mg tablet 25 mg PO QAM 04/18/19 02/08/22 History cholecalciferol (vitamin D3) 50 2,000 unit PO QPM 04/18/19 02/08/22 History mcg (2,000 unit) tablet (Vitamin D3) simvastatin 20 mg tablet 20 mg PO PM 04/18/19 02/08/22 History multivitamin 1 tab PO DAILY 02/22/20 02/08/22 History omeprazole 40 mg capsule,delayed 20 mg PO DAILY cap 09/10/21 02/08/22 History release psyllium husk 0.4 gram capsule 0.8 g PO DAILY 02/08/22 02/08/22 History (Fiber (psyllium husk)) Patient History Medical History Bicuspid aortic valve No on 12/06/17 echo. Mild-mod AI. Diverticular disease H/O: CVA (cerebrovascular accident) Pt recalls symptoms ~1974 but not known stroke until noted on brain imaging a few years ago. Hiatal hernia History of anemia Hx of breast cancer RIGHT, S/P LUMPECTOMY, CHEMO AND RADIATION, 2016 Hyperlipidemia Hypertension PFO (patent foramen ovale) Pulmonary nodule MONITORED YEARLY WITH CT Torn rotator cuff RIGHT Surgical History History of bunionectomy of right great toe History of colonoscopy History of lumpectomy of right breast History of repair of hiatal hernia Hx of hysterectomy TOTAL Social History Smoking Status: Former smoker Second Hand Exposure: No; Tobacco Cessation Education Requested by Patient: No Hx Alcohol Use: Yes Alcohol type: wine Hx Substance Use: No Preferred Language: Chinese Communication Ability: Effective Visual Impairment: No Limitations Teller Head Required: No Beliefs That Will Affect Care: None marital status: / Current Living Situation: Alone Other Information That Helps Us Care for You: No Feels Safe at Home: Yes Safety Concerns: Feels Safe At This Time Assistive Devices: Cane, Glasses and Hearing Aid - Bilateral Review of Systems Constitutional: no fever and no chills Eyes: no blind spots and no diplopia Ear, Nose, Mouth, Throat: no ear pain and no hearing loss Respiratory: no cough and no dyspnea Cardiovascular: no chest pain and no palpitations Gastrointestinal: no constipation and no diarrhea/loose stools Genitourinary: no urinary urgency and no urinary incontinence Musculoskeletal: no muscle weakness and no muscle atrophy Integumentary: no rash and no lesions Neurologic: as per Subjective / HPI and + localized weakness; no loss of sensation, no tremor(s), no headache(s) and no abnormal speech Psychiatric: no behavioral changes, no depression, no abnormal sleep pattern and no anxiety Hematologic / Lymphatic: no easy bruising and no lymphadenopathy Exam (Neuro) Constitutional: well developed and well nourished; no acute distress Eyes: normal visual lopez by confrontation, PERRL, normal accommodation and EOM intact bilaterally; no fundoscopic abnormality, no nystagmus and no papilledema Cardiovascular: Vessels: normal carotid upstroke; no carotid bruit Neurologic: Oriented to:: Person, Place and Time Memory: Short Term Intact and Remote Intact Attention: Span Intact and Concentration Intact Language: Naming Objects and Repeating Phrases Speech Fluency: negative D ysarthria Speech Aphasia: negative Aphasia Fund of Knowledge: Current Events, Past History and Vocabulary Cranial Nerves: Normal II (Visual lopez full to confrontation, visual acuity normal), III, IV, (Pupils equal round reactive to light and accommodation, eye movements normal), V (Facial sensation intact), VIII (Hearing intact), IX, X (Palate elevates to midline), XI (Shoulder shrug intact) and XII (Tongue protrudes to midline); Abnorm VII (Left lower facial droop noted) Motor Strength: Hemiparesis (Left arm 0 out of 5, left leg 3 out of 5.) Laterality: Left; negative Normal Lower Extremities, Normal Upper Extremities or Pronator Drift Motor Tone: Normal Lower Extremities and Normal Upper Extremities Muscle Bulk/Involuntary Movements: No Involuntary Movements; negative Muscle Atrophy Sensation: Light Touch Intact, Pain/Temperature Intact, Vibration Intact and Proprioception Intact Coordination: Finger-Nose Abnormal Laterality: Left and Heel-Burgess Abnormal Laterality: Left Deep Tendon Reflexes: Rt Triceps: 2+, Lt Triceps: 3+, Rt Biceps: 2+, Lt Biceps: 3+, Rt Brachioradialis: 2+, Lt Brachioradialis: 2+, Rt Patellar: 2+, Lt Patellar: 2+, Rt Ankle: 1+ and Lt Ankle: 1+ Special Tests: Babinski Present (L>R) Details: Gait could not be safely tested in the context of patient's current neurological status. Results & Data ([facility]) Vital Signs (Past 12 Hours) Vital Signs Temp Pulse Pulse Resp BP BP BP 02/09/22 07:51 36.8 C 60 14 152/79 H 02/09/22 07:27 59 L 02/09/22 03:32 36.9 C 68 20 152/78 H 02/09/22 03:13 62 02/09/22 02:12 53 L 18 150/72 H 02/09/22 02:10 52 L 14 02/09/22 02:00 53 L 19 02/09/22 01:50 59 L 17 02/09/22 01:40 54 L 16 02/09/22 01:30 64 26 H 02/09/22 01:20 60 19 02/09/22 01:10 67 22 02/09/22 01:08 68 23 02/09/22 00:50 62 20 02/09/22 00:45 58 L 59 L 19 158/79 H 158/79 H 02/09/22 00:40 59 L 19 02/09/22 00:31 62 21 153/100 H 02/09/22 00:30 60 66 19 153/100 H 02/09/22 00:20 63 21 02/09/22 00:15 61 62 19 168/71 H 168/71 H 02/09/22 00:10 64 19 02/09/22 00:00 60 63 19 150/93 H 150/93 H 02/08/22 23:50 65 23 02/08/22 23:45 62 21 157/75 H 02/08/22 23:40 65 22 02/08/22 23:33 72 32 H 157/93 H 02/08/22 23:32 36.5 C 69 22 167/66 H 02/08/22 23:30 66 24 02/08/22 23:26 67 17 167/66 H 02/08/22 23:25 36.5 C 73 24 167/66 H 02/08/22 23:24 Pulse Ox 02/09/22 07:51 99 02/09/22 07:27 02/09/22 03:32 99 02/09/22 03:13 02/09/22 02:12 96 02/09/22 02:10 97 02/09/22 02:00 97 02/09/22 01:50 97 02/09/22 01:40 96 02/09/22 01:30 96 02/09/22 01:20 97 02/09/22 01:10 98 02/09/22 01:08 98 02/09/22 00:50 98 02/09/22 00:45 96 02/09/22 00:40 97 02/09/22 00:31 98 02/09/22 00:30 94 02/09/22 00:20 97 02/09/22 00:15 96 02/09/22 00:10 98 02/09/22 00:00 93 02/08/22 23:50 98 02/08/22 23:45 94 02/08/22 23:40 97 02/08/22 23:33 98 02/08/22 23:32 99 02/08/22 23:30 98 02/08/22 23:26 99 02/08/22 23:25 98 02/08/22 23:24 98 Laboratory Results WBC 14.62, hemoglobin 15.0, hematocrit 42.8, MCV 86.8, platelet count 336, sodium 133, potassium 3.8, BUN 24, creatinine 0.57, glucose 114, hemoglobin A1c 5.7, AST 14, ALT 13, triglycerides 120, cholesterol 188, LDL 101, VLDL 24, HDL [address] of the head revealed an old small infarct within the right cerebellar hemisphere and an acute infarct within the right basal ganglia with associated edema resulting in mild mass-effect along the right lateral ventricle with minimal left to right midline shift. No hemorrhage. I reviewed the images as well as the radiologist's interpretation of this test. CTA of the head revealed a focal high-grade stenosis versus occlusion at the takeoff of the superior division of the right M2 segment and a focal high-grade stenosis at the distal superior division of the right MCA. CTA of the neck was negative for occlusion, stenosis, or dissection of the major cervical vessels. I reviewed these images as well. Lower extremity venous Dopplers negative for DVT. Electrocardiogram revealed a normal sinus rhythm, 72 bpm. Coding Level of Care Code 13275 Initial In Care Lvl 3 Diagnoses Stroke I63.9 CVA mechanism: unspecified (1) Stroke CVA mechanism: unspecified Qualified Code(s): I63.9 - Cerebral infarction, unspecified
--- NOTE | 2022-02-09 08:34 | CT Scan Report ---
CT angio neck with con CLINICAL HISTORY: Stroke Like Symptoms TECHNIQUE: CT angiography of the neck was performed following intravenous administration of iodinated contrast. Coronal and sagittal MIPS were obtained from the axial data set and were submitted for rev iew. Automated dose lowering techniques and/or adjustment according to patient size were utilized fo r this examination. All measurements were calculated based on NASCET criteria. Comparison: Comparison is made to CT cervical spine 02/08/2022 FINDINGS: Small thyroid nodules are seen which do not require follow-up by ACR criteria. Biapical scarring is s een in the lung apices. CTA Neck: A 3 vessel aortic arch is shown. There is no significant atherosclerotic plaque in the aor tic arch or the origins of the innominate, left common carotid, and left subclavian arteries. The c ommon carotid, external carotid, cervical segments of the internal carotid arteries, and the cervical segments of the vertebral arteries are patent without hemodynamically significant stenosis. The vert ebral arteries are codominant. Incidental note is made of the right vertebral artery terminating in P ICA. IMPRESSION: No occlusion, hemodynamically significant stenosis, or dissection in the major cervical arteries. Assessment of stenosis of the internal carotid arteries is based on NASCET criteria. ACT 112: Negative or not required by law. Electronically signed by: James Tee M.D. 02/09/2022 8:33 AM
[2022-02-09] MEDS: PSYLLIUM or GUAR GUM FIBER POWDER PACKET PO SCH (08:40)
[2022-02-09] MEDS: PANTOprazole 40 MG TAB PO SCH (08:41)
[2022-02-09] MEDS: MULTIVITAMIN TAB PO SCH (08:41)
[2022-02-09] MEDS: POLYETHYLENE (MIRALAX) 17 GM PACK PO SCH (08:41)
--- NOTE | 2022-02-09 09:04 | Ultrasound Report ---
BILATERAL LOWER EXTREMITY VENOUS DOPPLER CLINICAL HISTORY: stroke w/ PFO COMPARISON STUDY: No previous studies for comparison. TECHNIQUE: Sonography of the deep venous system of the bilateral lower extremities was performed. Co mpression and augmentation were evaluated. FINDINGS: The bilateral common femoral, superficial femoral and popliteal veins were compressible. A ugmentation was normal. Flow was shown within the deep calf vessels. A 3.5 x 2.5 x 1.8 cm right popli teal cyst is present. IMPRESSION: No evidence of deep venous thrombus within the bilateral lower extremities. ACT 112: Negative or not required by law. Electronically signed by: Alex Moon M.D. 02/09/2022 9:03 AM
--- NOTE | 2022-02-09 09:20 | XRay Report ---
XR chest 1V portable CLINICAL HISTORY: cva TECHNIQUE: Single frontal radiograph of the chest was obtained. Comparison: Comparison is made to chest 2 views 04/24/2019 FINDINGS: No lines and tubes are seen. Calcified aortic knob is seen. The lungs are clear. No evidence of pleur al effusion or pneumothorax. Right reverse shoulder arthroplasty is seen. IMPRESSION: No acute chest disease. ACT 112: Negative or not required by law. Electronically signed by: James Tee M.D. 02/09/2022 9:19 AM
--- NOTE | 2022-02-09 12:39 | Hospitalist Progress Note ---
Date of Service February 09, 2022 Assessment & Plan (1) Stroke: Plan: 81-year-old female with a past medical history of cerebellar stroke, PFO, breast cancer, coronary artery disease, hypertension, GERD presents as a stroke alert for evaluation of strokelike symptoms diagnosed with a right basal ganglia stroke admitted for stroke protocol without TPA. Fall and acute left-sided muscle weakness secondary to right basal ganglia stroke Upon presentation to the hospital patient was outside the window for TPA. Imaging studies in the emergency department were consistent with a right basal ganglia stroke as per physical exam findings. No TPA per leti stroke team -Aspirin given in the ED -Neurovascular checks -BRAIN MRI ordered -speech evaluation with rec. for minced and moist diet -Duplex negative for DVT - ordered d/t h/o PFO and breast ca. -ECHO without significant abnormalities noted -Permissive HTN -Neurology consulted - rec. escalating statin Electrolyte disturbances -Daily BMP replete as indicated -Hypomagnesemia on admission given 1 g of magnesium in the ED Hypertension Holding home antihypertensive in the setting of permissive hypertension -Resume when able per neuro GERD -Continue omeprazole Coronary artery disease -switching from Simvastatin to Rosuvastatin FENa: minced and moist per. speech Code Status: Full code DVT PPX: Contraindicated, SCDs PT/OT: Consulted, rec. impatient rehab Case Management: Consulted Dispo: Telemetry, working on placement at inpatient rehab Admission and Anticipated Discharge Date Admission Date: February 09, 2022 Supervising Physician Co-Signing Physician Notes Resident Physician Supervision Note: I independently interviewed and examined the patient and verified the mercado history and physical, reviewed labs and image studies and agree with resident Dr. Mcclure findings and care plan. Subjective Tea Sepulveda is doing okay this morning. She denies any chest pain, palpitations, abdominal pain, fevers. Review of Systems Review of Systems: All systems reviewed & are unremarkable except as noted in Subjective Physical Exam Constitutional: well developed, well nourished and comfortable ENMT: external ear and nose normal, oropharynx normal Neck: normal visual inspection Respiratory: normal respiratory effort, lungs clear to auscultation Cardiovascular: RRR, no murmur, no edema Gastrointestinal (Abdomen): normal bowel sounds, soft, nontender, no hepatosplenomegaly Skin: no rashes, warm and dry Neurologic: - left lower facial droop - left arm weakness 0/5 strength - left leg weakness 3/5 strength - otherwise CN II - XII intact Psychiatric: Orientation: alert Eye Contact: good eye contact Speech: normal rate/rhythm/volume of speech Results & Data Results & Data ([facility]) Vital Signs (Past 12 Hours) Vital Signs Temp Pulse Pulse Resp BP BP BP 02/09/22 11:13 37.1 C 64 14 146/82 H 02/09/22 07:51 36.8 C 60 14 152/79 H 02/09/22 07:27 59 L 02/09/22 03:32 36.9 C 68 20 152/78 H 02/09/22 03:13 62 02/09/22 02:12 53 L 18 150/72 H 02/09/22 02:10 52 L 14 02/09/22 02:00 53 L 19 02/09/22 01:50 59 L 17 02/09/22 01:40 54 L 16 02/09/22 01:30 64 26 H 02/09/22 01:20 60 19 02/09/22 01:10 67 22 02/09/22 01:08 68 23 02/09/22 00:50 62 20 02/09/22 00:45 58 L 59 L 19 158/79 H 158/79 H 02/09/22 00:40 59 L 19 Pulse Ox 02/09/22 11:13 98 02/09/22 07:51 99 02/09/22 07:27 02/09/22 03:32 99 02/09/22 03:13 02/09/22 02:12 96 02/09/22 02:10 97 02/09/22 02:00 97 02/09/22 01:50 97 02/09/22 01:40 96 02/09/22 01:30 96 02/09/22 01:20 97 02/09/22 01:10 98 02/09/22 01:08 98 02/09/22 00:50 98 02/09/22 00:45 96 02/09/22 00:40 97 CBC Results Results Complete Blood Count Results: RBC 4.93 M/uL (4.2-5.4) 02/09/22 WBC 14.62 K/uL (4.8-10.8) H 02/09/22 Hgb 15.0 g/dL (12.0-16.0) 02/09/22 Hct 42.8 % (37-47) 02/09/22 Plt Count 336 K/uL (130-400) 02/09/22 Chemistry (BMP) Results BMP Results: Sodium 133 mmol/L (136-145) L 02/09/22 Potassium 3.8 mmol/L (3.5-5.1) 02/09/22 Chloride 98 mmol/L (98-107) 02/09/22 Carbon Dioxide 25 mmol/L (21-32) 02/09/22 Anion Gap 10 (3-11) 02/09/22 BUN 24 mg/dl (6-23) H 02/09/22 Creatinine 0.57 mg/dl (0.6-1.2) L 02/09/22 Glucose 114 mg/dl (70-99(Fasting)) H 02/09/22 Resident Activity Tracking Resident Involvement: Resident Care Provided Care Provided: Adult Hospital Medicine (1) Stroke CVA mechanism: unspecified Qualified Code(s): I63.9 - Cerebral infarction, unspecified
--- NOTE | 2022-02-09 12:49 | XCELERA ---
[id number]
[2022-02-09] MEDS: CHOLECALCIFEROL 1,000 UNITS 25 MCG TAB PO SCH (20:46)
[2022-02-09] MEDS: ROSUVASTATIN CALCIUM 20 MG TAB PO SCH (20:47)
[2022-02-09] MEDS ORDERED: SIMVASTATIN 20 MG TAB PO SCH (21:00)
[2022-02-09] MEDS ORDERED: GADOBUTROL 65ML VIAL IV ONE (21:36)
[2022-02-10 06:24] LABS: Eosinophils # (auto) 0.08 K/uL (0-0.5); Eosinophils % (auto) 0.8 %; Hematocrit (blood only) 38.4 % (37-47); Hemoglobin 13.1 g/dL (12.0-16.0); Immature Granulocytes # (auto) 0.04 K/uL (0.00-0.02); Immature Granulocytes % (auto) 0.4 %; Lymphocytes # (auto) 0.72 K/uL (1.2-3.4); Lymphocytes % (auto) 7.3 %; Mean Corpuscular Hemoglobin 29.9 pg (25-34); Mean Corpuscular Hgb Conc 34.1 g/dL (32-36); Mean Corpuscular Volume 87.7 fL (80-100); Mean Platelet Volume 10.1 fL (7.4-10.4); Monocytes # (auto) 1.38 K/uL (0.11-0.59); Monocytes % (auto) 13.9 %; Neutrophils # (auto) 7.71 K/uL (1.4-6.5); Neutrophils % (auto) 77.6 %; Platelet Count 255 K/uL (130-400); RDW Standard Deviation 41.8 fL (36.4-46.3); Red Blood Count 4.38 M/uL (4.2-5.4); White Blood Count 9.93 K/uL (4.8-10.8)
[2022-02-10 06:44] LABS: BUN Creatinine Ratio 32.2 (10-20); Calcium 8.6 mg/dl (8.5-10.1); Creatinine Clr Calc Pharmacy 67.6 ml/min; Est GFR (Non-African American) 87.2 ml/min; Potassium 3.8 mmol/L (3.5-5.1)
--- NOTE | 2022-02-10 06:50 | Electrocardiogram Report ---
Test Reason : Blood Pressure : / mmHG Vent. Rate : 072 BPM Atrial Rate : 072 BPM P-R Int : 168 ms QRS Dur : 064 ms QT Int : 420 ms P-R-T Axes : 043 027 047 degrees QTc Int : 459 ms Poor data quality, interpretation may be adversely affected Normal sinus rhythm Nonspecific ST abnormality Abnormal ECG When compared with ECG of 17-DEC-2017 13:31, No significant change was found Confirmed by Everardo Caceres ([id number]) on 02/10/2022 6:50:22 AM Referred By: REFERRED SELF Confirmed By:Everardo Caceres
--- NOTE | 2022-02-10 07:58 | Magnetic Resonance Report ---
MRI OF THE BRAIN WITHOUT AND WITH IV CONTRAST CLINICAL HISTORY: Stroke. Left arm and left leg weakness. COMPARISON STUDY: Head CT and CTA of the head February 08, 2022. TECHNIQUE: Utilizing a 1.5 Deidre magnet and dedicated coil, multiplanar, multiecho imaging of the br ain was performed pre and postcontrast administration. IV administration of 6.5 mL of Gadavist contr ast was uneventful. Thin cut T1 post contrast imaging was performed. FINDINGS: Note is made of a 3.9 x 2.6 cm focus of restricted diffusion centered within the right basa l ganglia. This has mild mass effect. Numerous additional smaller foci of acute infarction within the right frontal and temporal lobes are present. There is no evidence for acute hemorrhage. Mild mass e ffect upon the right lateral ventricle is present. Basal cisterns are patent. There are no extra-axia l collections. No intracranial masses present. There is no pathologic enhancement. Several old infarc ts within the bilateral cerebellar hemispheres are present. Sphenoid sinus air-fluid levels have deve loped. Calvarial signal is within normal limits. Orbits are unremarkable. IMPRESSION: 3.9 x 2.6 cm acute infarct within the right basal ganglia with mild mass effect. No acute hemorrhage. Numerous additional smaller foci of acute infarction within the right frontal and temporal lobes. ACT 112: Negative or not required by law. Electronically signed by: Alex Moon M.D. 02/10/2022 7:56 AM
[2022-02-10] MEDS: MULTIVITAMIN TAB PO SCH (08:01)
[2022-02-10] MEDS: PANTOprazole 40 MG TAB PO SCH (08:02)
[2022-02-10] MEDS: POLYETHYLENE (MIRALAX) 17 GM PACK PO SCH (08:02)
[2022-02-10] MEDS: PSYLLIUM or GUAR GUM FIBER POWDER PACKET PO SCH (08:03)
--- NOTE | 2022-02-10 08:27 | Hospitalist Progress Note ---
Date of Service February 10, 2022 Assessment & Plan (1) Stroke: Plan: 81-year-old female with a past medical history of cerebellar stroke, PFO, breast cancer, coronary artery disease, hypertension, GERD presents as a stroke alert for evaluation of strokelike symptoms diagnosed with a right basal ganglia stroke admitted for stroke protocol without TPA. Fall and acute left-sided muscle weakness secondary to right basal ganglia stroke Upon presentation to the hospital patient was outside the window for TPA. Imaging studies in the emergency department were consistent with a right basal ganglia stroke as per physical exam findings. [place] stroke team was consulted and agree with the findings that there is no indication for TPA and nothing amendable to endovascular intervention. Patient will be admitted per stroke protocol without TPA -Aspirin given in the ED -- switched to daily baby aspirin per Neuro recs -Neurovascular checks -BRAIN MRI showing 3.9 x 2.6 cm acute infarct within the right basal ganglia with mild mass effect. No acute hemorrhage. Numerous additional smaller foci of acute infarction within the right frontal and temporal lobes. -speech evaluation with rec. for minced and moist diet -Duplex negative for DVT -ECHO without significant abnormalities noted -Permissive HTN -Neurology following - statin dose escalated - follow-up noncontrast CT of the head today to further evaluate for any significant interval change or hemorrhagic transformation - 30-day mobile cardiac outpatient telemetry -Repeat CT per neuro recs showing interval development of several faint hyperdense foci within the right basal ganglia infarct since prior head CT. This is consistent with a small amount of acute hemorrhage and suggests hemorrhagic conversion. Short-term follow-up head CT is recommended for reassessment. Increase in mass effect with compression of the right lateral ventricle and mild leftward midline shift. -Recheck CT later today -hold aspirin Electrolyte disturbances -Daily BMP replete as indicated -Hypomagnesemia on admission, given 1 g of magnesium in the ED Hypertension Holding home antihypertensive GERD -Continue omeprazole Coronary artery disease -switched from Simvastatin to Rosuvastatin FEN: minced and moist per. speech Code Status: Full code DVT PPX: Contraindicated, SCDs PT/OT: Consulted, rec. impatient rehab Case Management: Consulted Dispo: Telemetry, working on placement at inpatient rehab Admission and Anticipated Discharge Date Admission Date: February 09, 2022 Supervising Physician Co-Signing Physician Notes Resident Physician Supervision Note: I independently interviewed and examined the patient and verified the mercado history and physical, reviewed labs and image studies and agree with resident Dr. Elliott findings and care plan. Subjective Seen at bedside this AM. Patient is active and appropriately conversing. Reports she feels well and has not noticed any new symptoms since yesterday. Denies CP, palp, SOB, n/v, dizziness, MENESES, abd pain, cough, f/c. Review of Systems Review of Systems: per HPI Physical Exam Physical Exam: GENERAL: A&Ox3. NAD. HEENT: PERRL, EOMI. Moist mucous membranes. NECK: No JVD. No lymphadenopathy. CHEST/LUNGS: CTAB A/P. No crackles, wheezes, rales, rhonchi. HEART: RRR. No m/g/r. No carotid bruits. ABDOMEN: NT/ND, soft. BS+ x4. EXTREMITIES: No cyanosis, no clubbing, no edema. SKIN: Warm and dry. No rashes or lesions. PSYCHIATRIC: Euthymic affect, no SI, no pressured speech, no hallucinations NEUROLOGIC: Left-sided weakness with 3/5 strength in upper extremity and 2/5 in lower extremity as compared to right side. Results & Data Results & Data ([facility]) Vital Signs (Past 12 Hours) Vital Signs Temp Pulse Pulse Resp BP Pulse Ox 02/10/22 07:52 36.4 C L 63 18 150/79 H 93 02/10/22 07:35 59 L 02/10/22 03:36 37.0 C 65 18 131/76 94 02/09/22 23:40 37.0 C 96 H 18 157/80 H 96 Resident Activity Tracking Resident Involvement: Resident Care Provided Care Provided: Adult Hospital Medicine (1) Stroke CVA mechanism: unspecified Qualified Code(s): I63.9 - Cerebral infarction, unspecified
[2022-02-10] MEDS ORDERED: ASPIRIN 81 MG ECTAB PO SCH (09:00)
--- NOTE | 2022-02-10 09:29 | Neurology Progress Note ---
Date of Service February 10, 2022 Assessment & Plan (1) Stroke: Plan: Acute right basal ganglia infarct with mild mass-effect, no hemorrhage, and numerous additional smaller foci of acute infarct within the right frontal and temporal lobes. Patient has high-grade stenosis versus occlusion at the takeoff of the superior division of the right M2 segment and additional focal area of high-grade stenosis at the distal superior division of the right MCA. Clinically, patient has a significant left hemiplegia, face arm and leg, leg does seem weaker today as compared with yesterday, probably due to evolution of her stroke with associated edema. Patient also has an element of left hemineglect and rightward gaze preference. She was not taking antiplatelet medication or blood thinners prior to her current hospitalization. I agree with the addition of aspirin 81 mg daily. She should continue with this medication. She had been taking simvastatin as an outpatient. This medication has been discontinued in favor of Crestor. Goal LDL less than 70 if possible. Continue to monitor patient's blood pressure. Systolic blood pressure goal around 150 mmHg, going forward would plan for gradual reduction. Would need to consider restarting her diuretic or possibly an ARB going forward. PT/OT/speech therapy. Unfortunately, patient's neurologic deficits are significant and I suspect she will not be able to return to independent living although ultimate disposition to be determined. Because patient's left leg is a bit weaker today as compared with yesterday, I would like her to have a follow-up noncontrast CT of the head today to further evaluate for any significant interval change or hemorrhagic transformation. Would also plan on having this patient have a 30-day mobile cardiac outpatient telemetry. No further immediate recommendations. May follow-up in neurology clinic in 2 to 3 weeks after discharge. Admission and Anticipated Discharge Date Admission Date: February 09, 2022 Subjective Follow-up for stroke The patient continues to complain of left-sided weakness, face arm and leg, leg seems weaker today compared with yesterday. Denies headache, vision loss, or numbness. No dysarthria or aphasia. Continues to exhibit a mild element of left hemineglect. MRI completed yesterday did confirm an acute infarct within the right basal ganglia with mild associated mass-effect, no hemorrhage as well as additional smaller foci of acute infarct within the right frontal and temporal lobes. I did review these images as well as the radiologist interpretation of this test and agree. The chronic right cerebellar infarct was appreciated as well. An echocardiogram completed yesterday revealed normal left ventricular size and systolic function, ejection fraction 60 to 65%. No ASD or significant right to left shunt identified with agitated saline. Left atrium borderline dilated. Review of Systems Eyes: no blind spots and no diplopia Neurologic: + localized weakness; no loss of sensation, no headache(s) and no memory loss Results & Data ([facility]) Vital Signs (Past 12 Hours) Vital Signs Temp Pulse Pulse Resp BP Pulse Ox 02/10/22 07:52 36.4 C L 63 18 150/79 H 93 02/10/22 07:35 59 L 02/10/22 03:36 37.0 C 65 18 131/76 94 02/09/22 23:40 37.0 C 96 H 18 157/80 H 96 Laboratory Results WBC 9.93, hemoglobin 13.1, hematocrit 38.4, platelet count 255, sodium 134, potassium 3.8, BUN 19, creatinine 0.59, glucose 124. Triglycerides 120, cholest nasrin 188, LDL 101, VLDL 24, HDL 63. Diagnostic Findings MRI and echocardiogram are as described above. Exam (Neuro) Neurologic: Oriented to:: Person, Place and Time Attention: Span Intact and Concentration Intact Speech Fluency: negative Dysarthria or Dysfluency Fund of Knowledge: Past History and Vocabulary Cranial Nerves: Normal II and III, IV, ; Abnorm VII (Left lower facial droop present) Motor Strength: Hemiparesis (Face arm and leg equally affected today) Muscle Bulk/Involuntary Movements: No Involuntary Movements Sensation: Light Touch Intact Deep Tendon Reflexes: Rt Biceps: 2+, Lt Biceps: 3+, Rt Patellar: 2+ and Lt Patellar: 3+ Special Tests: Babinski Present (L) PG Care Time/CCT Total # of Minutes Spent Total Time Spent with Patient: Total time spent is greater than 50% in coordination of care (as documented) at patient's floor/unit and/or counseling patient: Coding Level of Care Code 52787 Subseq Hosp Care Lvl 2 Diagnoses Stroke I63.9 CVA mechanism: unspecified (1) Stroke CVA mechanism: unspecified Qualified Code(s): I63.9 - Cerebral infarction, unspecified
--- NOTE | 2022-02-10 11:22 | CT Scan Report ---
CT OF THE HEAD WITHOUT CONTRAST CLINICAL HISTORY: stroke, eval for hemorrhage COMPARISON STUDY: Head CT and CTA of the head February 08, 2022. MRI of the brain February 09, 2022. CT DOSE: 638.56 mGycm TECHNIQUE: Helical axial images of the head were obtained without IV contrast. Automated exposure con trol was utilized for the study. A dose lowering technique was utilized adhering to the principles o f ALARA. FINDINGS: Note is again made of a right basal ganglia infarct which measures 4.1 x 3 cm. There has be en interval development of a central 2.2 cm faint hyperdense focus since prior CT. Additional smaller hyperdense focus is noted within the superior aspect of the infarct extending into the caudate nucle us. Mass effect has increased. There is mild leftward midline shift of 5 mm. Compression of the right lateral ventricle has increased. Additional foci of infarction within the right temporal and frontal lobes are present. Old infarct within the right cerebellar hemisphere is present. Left sphenoid sinu s is largely opacified with air-fluid level. IMPRESSION: Interval development of several faint hyperdense foci within the right basal ganglia infa rct since prior head CT. This is consistent with a small amount of acute hemorrhage and suggests hemo rrhagic conversion. Short-term follow-up head CT is recommended for reassessment. Increase in mass ef fect with compression of the right lateral ventricle and mild leftward midline shift. ACT 112: Negative or not required by law. Electronically signed by: Alex Moon M.D. 02/10/2022 11:20 AM
--- NOTE | 2022-02-10 17:23 | CT Scan Report ---
CT head/brain wo con CLINICAL HISTORY: re-evaluation of hemorrhage Technique: Contiguous axial CT images of the head were acquired from the base of the skull to the akin zion without intravenous contrast administration. Images were viewed in brain, subdural and bone [facility]. Automated dose lowering techniques and/or adjustment according to patient size were utilized for this exam. Comparison: Comparison is made to CT head 02/10/2022 Findings: Redemonstration of previously noted right basal ganglia infarct and hemorrhage. There is approximatel y 4 mm leftward midline shift, comparable to prior exam. Partial effacement of the right lateral vent ricle is seen. No new acute hemorrhage is seen. Fluid levels are again seen in the left sphenoid sinus. The orbits appear normal. There are no acute fractures of the calvaria or scalp swelling. Impression: No evidence of new acute hemorrhage. Redemonstration of right basal ganglia hemorrhage, compatible wi th hemorrhagic conversion of infarct. Stable mass effect and leftward midline shift. ACT 112: Negative or not required by law. Electronically signed by: James Tee M.D. 02/10/2022 5:21 PM
[2022-02-10] MEDS: ROSUVASTATIN CALCIUM 20 MG TAB PO SCH (20:21)
[2022-02-10] MEDS: CHOLECALCIFEROL 1,000 UNITS 25 MCG TAB PO SCH (20:21)
[2022-02-10] MEDS ORDERED: LORazepam 2 MG/1 ML VIAL IV STA (23:19)
[2022-02-11] MEDS ORDERED: MELATONIN 3 MG TAB PO PRN
[2022-02-11] MEDS: LABETALOL HCL IV 5 MG/ML 20ML IV PRN ×2 (00:36→21:25)
[2022-02-11 07:26] LABS: Eosinophils # (auto) 0.21 K/uL (0-0.5); Eosinophils % (auto) 1.8 %; Hematocrit (blood only) 38.3 % (37-47); Hemoglobin 13.6 g/dL (12.0-16.0); Immature Granulocytes # (auto) 0.05 K/uL (0.00-0.02); Immature Granulocytes % (auto) 0.4 %; Lymphocytes # (auto) 0.85 K/uL (1.2-3.4); Lymphocytes % (auto) 7.2 %; Mean Corpuscular Hemoglobin 30.6 pg (25-34); Mean Corpuscular Hgb Conc 35.5 g/dL (32-36); Mean Corpuscular Volume 86.3 fL (80-100); Monocytes # (auto) 1.39 K/uL (0.11-0.59); Monocytes % (auto) 11.8 %; Neutrophils # (auto) 9.32 K/uL (1.4-6.5); Neutrophils % (auto) 78.8 %; Platelet Count 252 K/uL (130-400); RDW Standard Deviation 41.2 fL (36.4-46.3); Red Blood Count 4.44 M/uL (4.2-5.4); White Blood Count 11.82 K/uL (4.8-10.8)
--- NOTE | 2022-02-11 07:43 | Hospitalist Progress Note ---
Date of Service February 11, 2022 Assessment & Plan (1) Stroke: Plan: 81-year-old female with a past medical history of cerebellar stroke, PFO, breast cancer, coronary artery disease, hypertension, GERD presents as a stroke alert for evaluation of strokelike symptoms diagnosed with a right basal ganglia stroke admitted for stroke protocol without TPA. Right basal ganglia stroke with left side weakness Not TPA candidate -BRAIN MRI showing 3.9 x 2.6 cm acute infarct within the right basal ganglia with mild mass effect. No acute hemorrhage. Numerous additional smaller foci of acute infarction within the right frontal and temporal lobes. -speech evaluation with rec. for minced and moist diet -Duplex negative for DVT -ECHO without significant abnormalities noted - Aspirin on hold due to hemorrhagic conversion -- can restart if stable on repeat CT this PM per neuro - Continuing Crestor -Neurology consulted -Repeat CT of the head to be completed this afternoon to continue to ensure stability. - Remain off aspirin for the time being. However, if her infarct with hemorrhagic conversion remains stable over the next few days would recommend restarting daily low-dose aspirin. - Continue with Crestor. - Continue medical management of blood pressure. Systolic blood pressure goal 140 to 160 mmHg. -CT 02/10 showing acute/subacute right basal ganglia stroke, now with associated petechial hemorrhage, stable edema, mild shift. - Repeat later 02/10 was stable - Plan to repeat 02/11 in PM Electrolyte disturbances -Daily BMP replete as indicated -Hypomagnesemia on admission, given 1 g of magnesium in the ED Hypertension - Home antihypertensives restarted 02/11, BP goals as above - Labetalol prn ordered for SBP > 160 GERD -Continue omeprazole Coronary artery disease -switched from Simvastatin to Rosuvastatin FEN: minced and moist per. speech Code Status: Full code DVT PPX: Contraindicated, SCDs PT/OT: Consulted, rec. impatient rehab Dispo: Telemetry, working on placement at inpatient rehab Admission and Anticipated Discharge Date Admission Date: February 09, 2022 Supervising Physician Co-Signing Physician Notes Resident Physician Supervision Note: I independently interviewed and examined the patient and verified the mercado history and physical, reviewed labs and image studies and agree with resident Dr. Elliott findings and care plan. Subjective Seen at bedside. No new concerns or complaints. Still feeling weak on left side, which correlates with physical exam. Denies MENESES, vision changes, swallowing difficulty, n/v, f/c. Review of Systems 2 Review of Systems: per HPI Physical Exam Physical Exam: GENERAL: A&Ox3. NAD. CHEST/LUNGS: CTAB A/P. No crackles, wheezes, rales, rhonchi. HEART: RRR. No m/g/r. No carotid bruits. ABDOMEN: NT/ND, soft. BS+ x4. EXTREMITIES: No cyanosis, no clubbing, no edema. SKIN: Warm and dry. No rashes or lesions. PSYCHIATRIC: Euthymic affect, no SI, no pressured speech, no hallucinations NEUROLOGIC: Left-sided weakness with 3/5 strength in upper extremity and 2/5 in lower extremity as compared to right side. Results & Data Results & Data ([facility]) Vital Signs (Past 12 Hours) Vital Signs Temp Pulse Pulse Resp BP Pulse Ox 02/11/22 03:24 36.9 C 96 H 18 149/84 H 99 02/11/22 01:10 81 162/69 H 02/10/22 23:04 36.9 C 79 19 165/79 H 94 02/10/22 21:18 37.0 C 89 18 148/87 H 96 Resident Activity Tracking Resident Involvement: Resident Care Provided Care Provided: Adult Hospital Medicine (1) Stroke CVA mechanism: unspecified Qualified Code(s): I63.9 - Cerebral infarction, unspecified
[2022-02-11 07:51] LABS: BUN Creatinine Ratio 31.8 (10-20); Calcium 8.8 mg/dl (8.5-10.1); Creatinine Clr Calc Pharmacy 60.4 ml/min; Est GFR (African American) 97.4 ml/min; Potassium 3.4 mmol/L (3.5-5.1)
[2022-02-11] MEDS: POLYETHYLENE (MIRALAX) 17 GM PACK PO SCH (08:06)
[2022-02-11] MEDS: PANTOprazole 40 MG TAB PO SCH (08:06)
[2022-02-11] MEDS: MULTIVITAMIN TAB PO SCH (08:06)
[2022-02-11] MEDS: PSYLLIUM or GUAR GUM FIBER POWDER PACKET PO SCH (08:07)
[2022-02-11] MEDS ORDERED: POTASSIUM CHLORIDE 20 MEQ/15 ML UDC PO STA (08:20)
--- NOTE | 2022-02-11 09:23 | Neurology Progress Note ---
Date of Service February 11, 2022 Assessment & Plan (1) Stroke: Plan: Acute/subacute right basal ganglia stroke, now with associated petechial hemorrhage, stable edema, mild shift. Follow-up CT of the head completed last night suggestibility. Patient's neurological assessment this morning is stable as well compared with yesterday, continues to exhibit rightward gaze preference and a dense left hemiplegia, element of left hemineglect as well. No dysarthria, dysphagia. No vision loss. Plan: Would recommend a repeat CT of the head to be completed this afternoon to continue to ensure stability. Remain off aspirin for the time being. However, if her infarct with hemorrhagic conversion remains stable over the next few days would recommend restarting daily low-dose aspirin. Continue with Crestor. Continue medical management of blood pressure. Systolic blood pressure goal 140 to 160 mmHg. PT/OT Patient will likely have significant residual neurologic deficits as a result of the stroke, ultimate disposition following rehab to be determined. Admission and Anticipated Discharge Date Admission Date: February 09, 2022 Subjective Follow-up for stroke Patient continues to exhibit significant left-sided weakness, face arm and leg, tendency to look to the right, element of left hemineglect. Denies significant headache, vision loss, or difficulty with swallowing. Does have an element of petechial hemorrhage in her recent right basal ganglia infarct. There is some associated edema as well. Patient had an additional follow-up CT of the head completed last night at around 5 PM. The study demonstrated stability of the right basal ganglia hemorrhage, compatible with hemorrhagic conversion of her infarct in this area as well as stable mass-effect and leftward midline shift. I did review these images as well as the radiologist interpretation of this test and agree. Patient's aspirin has been discontinued for the time being. She continues with rosuvastatin. Her blood pressure has been within acceptable range. Review of Systems Eyes: no blind spots and no diplopia Neurologic: + localized weakness, + loss of sensation and + headache(s) Results & Data ([facility]) Vital Signs (Past 12 Hours) Vital Signs Temp Pulse Pulse Pulse Resp BP Pulse Ox 02/11/22 08:38 66 02/11/22 03:24 36.9 C 96 H 18 149/84 H 99 02/11/22 01:10 81 162/69 H 02/10/22 23:04 36.9 C 79 19 165/79 H 94 04/05/22 21:18 37.0 C 89 18 148/87 H 96 Exam (Neuro) Neurologic: Oriented to:: Person and Place Attention: negative Span Intact or Concentration Intact Speech Fluency: negative Dysarthria or Dysfluency Fund of Knowledge: negative Vocabulary Cranial Nerves: Normal II and III, IV, ; Abnorm VII (Left lower facial weakness observed.) Motor Strength: Hemiplegia Laterality: Left Sensation: Light Touch Intact and Pain/Temperature Intact Deep Tendon Reflexes: Rt Biceps: 2+, Lt Biceps: 3+, Rt Patellar: 2+ and Lt Patellar: 3+ Special Tests: Babinski Present (left) Coding Level of Care Code 96408 Subseq Hosp Care Lvl 2 Diagnoses Stroke I63.9 CVA mechanism: unspecified (1) Stroke CVA mechanism: unspecified Qualified Code(s): I63.9 - Cerebral infarction, unspecified
[2022-02-11] MEDS: BISOPROLOL FUMARATE 5 MG TAB PO SCH (11:51)
[2022-02-11] MEDS: CHLORTHALIDONE 25 MG TAB PO SCH (11:51)
[2022-02-11] MEDS: hydroCHLOROthiazide 25 MG TAB PO SCH (13:10)
--- NOTE | 2022-02-11 15:14 | CT Scan Report ---
HEAD CT NONCONTRAST CT DOSE: 773.57 mGy.cm HISTORY: Follow-up intracranial hemorrhage. stroke with hemorrhage, eval for stability TECHNIQUE: Multiaxial CT images of the head were performed without the use of intravenous contrast. A utomated exposure control was utilized for this study. A dose lowering technique was utilized adheri ng to the principles of ALARA. Comparison: Head CT 02/10/2022. Findings: Persistent fluid level within the left sphenoid sinus with near complete opacification. The mastoid air cells are clear. The calvarium and skull base are intact. There is again noted a subacut e right basal ganglia/MCA territory infarct with surrounding edema and hemorrhagic transformation. Th is infarcted area demonstrates increased hypodensity consistent with expected evolution. The small am ount of hemorrhagic transformation at the basal ganglia remains unchanged. There is persistent mass e ffect along the right lateral ventricle and stable 4 mm of left midline shift. There is an old small infarct within the right cerebellar hemisphere, unchanged. Impression: Redemonstration of the right basal ganglia hemorrhage consistent with hemorrhagic transformation of t he patient's known right basal ganglia/MCA territory subacute infarct. There is persistent mass effec t on the right lateral ventricle with 4 mm of left midline shift. Overall, this is not significantly changed compared to the prior examination. ACT 112: Negative or not required by law. Electronically signed by: Rodolfo Youngblood M.D. 02/11/2022 3:13 PM
[2022-02-11] MEDS: CHOLECALCIFEROL 1,000 UNITS 25 MCG TAB PO SCH (21:20)
[2022-02-11] MEDS: hydrALAZINE 10 MG TAB PO SCH (21:20)
[2022-02-11] MEDS: ROSUVASTATIN CALCIUM 20 MG TAB PO SCH (21:20)
[2022-02-11] MEDS: MELATONIN 3 MG TAB PO PRN (23:24)
[2022-02-12] MEDS: LABETALOL HCL IV 5 MG/ML 20ML IV PRN (04:09)
[2022-02-12 07:05] LABS: BUN Creatinine Ratio 29.2 (10-20); Calcium 8.8 mg/dl (8.5-10.1); Creatinine Clr Calc Pharmacy 62.7 ml/min; Est GFR (African American) 97.9 ml/min; Est GFR (Non-African American) 84.4 ml/min; Magnesium 1.5 mg/dl (1.7-2.4); Potassium 3.8 mmol/L (3.5-5.1)
[2022-02-12 07:26] LABS: Eosinophils # (auto) 0.27 K/uL (0-0.5); Eosinophils % (auto) 2.1 %; Hematocrit (blood only) 39.4 % (37-47); Hemoglobin 13.7 g/dL (12.0-16.0); Immature Granulocytes # (auto) 0.06 K/uL (0.00-0.02); Immature Granulocytes % (auto) 0.5 %; Lymphocytes # (auto) 0.84 K/uL (1.2-3.4); Lymphocytes % (auto) 6.4 %; Mean Corpuscular Hemoglobin 30.2 pg (25-34); Mean Corpuscular Hgb Conc 34.8 g/dL (32-36); Monocytes # (auto) 1.46 K/uL (0.11-0.59); Monocytes % (auto) 11.2 %; Neutrophils # (auto) 10.46 K/uL (1.4-6.5); Neutrophils % (auto) 79.8 %; Platelet Count 259 K/uL (130-400); RDW Coefficient of Variation 12.8 % (11.5-14.5); RDW Standard Deviation 41.2 fL (36.4-46.3); Red Blood Count 4.53 M/uL (4.2-5.4); White Blood Count 13.09 K/uL (4.8-10.8)
--- NOTE | 2022-02-12 07:39 | Hospitalist Progress Note ---
Date of Service February 12, 2022 Assessment & Plan (1) Stroke: Plan: 81-year-old female with a past medical history of cerebellar stroke, PFO, breast cancer, coronary artery disease, hypertension, GERD presents as a stroke alert for evaluation of strokelike symptoms diagnosed with a right basal ganglia stroke admitted for stroke protocol without TPA. Fall and acute left-sided muscle weakness secondary to right basal ganglia stroke Not a TPA candidate on admission -Neurovascular checks -BRAIN MRI showing 3.9 x 2.6 cm acute infarct within the right basal ganglia with mild mass effect. No acute hemorrhage. Numerous additional smaller foci of acute infarction within the right frontal and temporal lobes. -speech evaluation with rec. for minced and moist diet -Duplex negative for DVT -ECHO without significant abnormalities noted - Aspirin on hold due to hemorrhagic conversion -- can restart if stable on repeat CT this PM per neuro - Continuing Crestor -CT 02/10 showing acute/subacute right basal ganglia stroke, now with associated petechial hemorrhage, stable edema, mild shift. -Neurology following -Repeat CT -Continue to hold patient's aspirin. - IF repeat CT stable, plan on obtaining an additional follow-up CT of the head in 1 week. Assuming resolution/stability at that time, would then restart daily low-dose aspirin. Brain compression - Secondary to mild shift from edema surrounding stroke - Monitor for stability - Repeat CT as above Electrolyte disturbances -Daily BMP replete as indicated -Hypomagnesemia on admission, given 1 g of magnesium in the ED Hypertension - Home antihypertensives restarted 02/11, BP goals as above - Labetalol prn ordered for SBP > 160 GERD -Continue omeprazole Coronary artery disease -switched from Simvastatin to Rosuvastatin FEN: minced and moist per. speech Code Status: Full code DVT PPX: Contraindicated, SCDs PT/OT: Consulted, rec. impatient rehab Dispo: Telemetry, working on placement at inpatient rehab Admission and Anticipated Discharge Date Admission Date: February 09, 2022 Supervising Physician Co-Signing Physician Notes Resident Physician Supervision Note: I independently interviewed and examined the patient and verified the mercado history and physical, reviewed labs and image studies and agree with resident Dr. Elliott findings and care plan. Subjective Doing relatively well. No change in her weakness. She denies dizziness, MENESES, n/v, new focal neuro deficits. Mentions she has had difficulty sleeping despite melatonin but does not want prescription sleeping pills. Review of Systems Review of Systems: per subjective Physical Exam Physical Exam: GENERAL: A&Ox3. NAD. CHEST/LUNGS: CTAB A/P. No crackles, wheezes, rales, rhonchi. HEART: RRR. No m/g/r. No carotid bruits. ABDOMEN: NT/ND, soft. BS+ x4. EXTREMITIES: No cyanosis, no clubbing, no edema. SKIN: Warm and dry. No rashes or lesions. PSYCHIATRIC: Euthymic affect, no SI, no pressured speech, no hallucinations NEUROLOGIC: Left-sided weakness with 3/5 strength in upper extremity and 2/5 in lower extremity as compared to right side. Results & Data Results & Data ([place]) Vital Signs (Past 12 Hours) Vital Signs Temp Pulse Pulse Pulse Resp BP Pulse Ox 02/12/22 06:34 70 153/79 H 02/12/22 03:59 37.1 C 89 16 175/75 H 94 02/12/22 00:27 37.1 C 74 74 16 151/70 H 95 02/11/22 22:17 77 02/11/22 22:04 95 H 161/74 H 02/11/22 21:08 95 H 162/78 H 02/11/22 20:25 37.0 C 75 16 159/76 H 95 Resident Activity Tracking Resident Involvement: Resident Care Provided Care Provided: Adult Hospital Medicine (1) Stroke CVA mechanism: unspecified Qualified Code(s): I63.9 - Cerebral infarction, unspecified
[2022-02-12] MEDS: MAGNESIUM SULFATE / D5W 1 GM/100 ML BAG IV SCH ×2 (08:47→10:47)
[2022-02-12] MEDS: PANTOprazole 40 MG TAB PO SCH (08:51)
[2022-02-12] MEDS: MULTIVITAMIN TAB PO SCH (08:51)
[2022-02-12] MEDS: hydroCHLOROthiazide 25 MG TAB PO SCH (08:52)
[2022-02-12] MEDS: CHLORTHALIDONE 25 MG TAB PO SCH (08:52)
[2022-02-12] MEDS: hydrALAZINE 10 MG TAB PO SCH ×3 (08:52→20:09)
[2022-02-12] MEDS: BISOPROLOL FUMARATE 5 MG TAB PO SCH (08:53)
[2022-02-12] MEDS: POLYETHYLENE (MIRALAX) 17 GM PACK PO SCH (08:53)
[2022-02-12] MEDS: PSYLLIUM or GUAR GUM FIBER POWDER PACKET PO SCH (08:53)
--- NOTE | 2022-02-12 10:59 | Neurology Progress Note ---
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 Patient's neurological examination is unchanged, continues to exhibit a significant left hemiplegia, face arm and leg, rightward gaze preference, element of left-sided neglect as well. I would like this patient have a repeat CT of the head completed this afternoon to continue to ensure stability of the previously observed hemorrhagic transformation, edema and shift. Continue to hold patient's aspirin. Assuming the above CT of the head is stable, would then plan on obtaining an additional follow-up CT of the head in 1 week. Assuming resolution/stability at that time, would then restart daily low-dose aspirin. Continue with Crestor. Admission and Anticipated Discharge Date Admission Date: February 09, 2022 Subjective Follow-up for stroke No significant change in patient's left-sided weakness and right gaze preference. Patient denies headache, vision loss. Follow-up CT of the head completed yesterday suggested stability of the right basal ganglia hemorrhage /hemorrhagic transformation of right basal ganglia/MCA territory subacute infarct. Stable mass-effect with 4 mm of right to left midline shift. I reviewed these images as well as the radiologist's interpretation of this test. Review of Systems Eyes: no blind spots and no diplopia Neurologic: as per Subjective / HPI Results & Data ([facility]) Vital Signs (Past 12 Hours) Vital Signs Temp Pulse Pulse Pulse Resp BP Pulse Ox 02/12/22 08:00 36.5 C 76 18 149/68 H 96 02/12/22 07:41 75 02/12/22 06:34 70 153/79 H 02/12/22 03:59 37.1 C 89 16 175/75 H 94 02/12/22 00:27 37.1 C 74 74 16 151/70 H 95 Laboratory Results WBC 13.09, hemoglobin 13.7, hematocrit 39.4, MCV 87.0, platelet count 259, sodium 131, potassium 3.8, BUN 19, creatinine 0.65, glucose 128, magnesium 1.5. Exam (Neuro) Neurologic: Oriented to:: Person and Place Attention: negative Span Intact or Concentration Intact Speech Fluency: negative Dysarthria or Dysfluency Fund of Knowledge: Vocabulary Cranial Nerves: Normal II and III, IV, ; Abnorm VII (Left lower facial droop observed.) Motor Strength: Hemiplegia (Left arm 0 out of 5, left leg 1 out of 5. Trace grasp with the left hand noted.) Laterality: Left Muscle Bulk/Involuntary Movements: No Involuntary Movements Coding Level of Care Code 13830 Subseq Hosp Care Lvl 2 Diagnoses Stroke I63.9 CVA mechanism: unspecified (1) Stroke CVA mechanism: unspecified Qualified Code(s): I63.9 - Cerebral infarction, unspecified
--- NOTE | 2022-02-12 15:12 | CT Scan Report ---
CT SCAN OF THE BRAIN WITHOUT IV CONTRAST CLINICAL HISTORY: Follow-up stroke COMPARISON STUDY: CT of the brain dated 02/11/2022. TECHNIQUE: Unenhanced axial CT scan of the brain is performed from the vertex to the skull base. A do se lowering technique was utilized adhering to the principles of ALARA. CT DOSE: 537.48 mGy.cm FINDINGS: Brain parenchyma: Again seen is a subacute right basal ganglia/MCA territory infarct with surrounding edema and hemorrhagic transformation. There is persistent mass effect with effacement of the right l ateral ventricle and 4 mm of right to left midline shift. Focus of hemorrhage within the right basal ganglia is similar to yesterday measuring 2.3 x 1.1 cm. No new or progressive hemorrhage is identifie d. There are age-related involutional changes noting mild subcortical and periventricular microangio pathic change. A chronic lacunar infarct is noted in the right cerebellar hemisphere. No extra-axial fluid collection is seen. Ventricles, sulci, cisterns: Prominent secondary to involutional change. No intraventricular blood is identified. See above. Intracranial vasculature: There is atherosclerotic calcification of the cavernous carotid and vertebr al arteries. Calvarium: Unremarkable. Sinuses and mastoids: There is subtotal opacification of the left sphenoid sinus. The remaining visua lized paranasal sinuses are clear. The mastoid air cells are well pneumatized. Orbits: The bony orbits are grossly intact. There are bilateral ocular lens implants. IMPRESSION: 1. A subacute/evolving right basal ganglia/MCA territory infarct with surrounding edema and hemorrhag ic transformation has not significantly changed as compared to yesterday. 2. There is no increase in mass effect or new/increasing hemorrhage as compared to previous. ACT 112: Negative or not required by law. Electronically signed by: Kane Schnieder M.D. 02/12/2022 3:10 PM
[2022-02-12] MEDS: CHOLECALCIFEROL 1,000 UNITS 25 MCG TAB PO SCH (20:09)
[2022-02-12] MEDS: ROSUVASTATIN CALCIUM 20 MG TAB PO SCH (20:09)
[2022-02-12] MEDS: MELATONIN 3 MG TAB PO PRN (23:37)
[2022-02-13] MEDS: ACETAMINOPHEN 500 MG TAB PO PRN ×2 (00:49→20:42)
[2022-02-13 07:22] LABS: Eosinophils # (auto) 0.26 K/uL (0-0.5); Eosinophils % (auto) 2.1 %; Hematocrit (blood only) 39.2 % (37-47); Immature Granulocytes # (auto) 0.07 K/uL (0.00-0.02); Immature Granulocytes % (auto) 0.6 %; Lymphocytes # (auto) 0.91 K/uL (1.2-3.4); Lymphocytes % (auto) 7.4 %; Mean Corpuscular Hemoglobin 30.8 pg (25-34); Mean Corpuscular Hgb Conc 35.7 g/dL (32-36); Mean Corpuscular Volume 86.2 fL (80-100); Monocytes # (auto) 1.45 K/uL (0.11-0.59); Monocytes % (auto) 11.7 %; Neutrophils # (auto) 9.69 K/uL (1.4-6.5); Neutrophils % (auto) 78.2 %; Platelet Count 268 K/uL (130-400); RDW Coefficient of Variation 12.8 % (11.5-14.5); RDW Standard Deviation 40.5 fL (36.4-46.3); Red Blood Count 4.55 M/uL (4.2-5.4); White Blood Count 12.38 K/uL (4.8-10.8)
[2022-02-13 07:45] LABS: BUN Creatinine Ratio 33.3 (10-20); Calcium 8.9 mg/dl (8.5-10.1); Creatinine Clr Calc Pharmacy 67.1 ml/min; Est GFR (African American) 100.5 ml/min; Est GFR (Non-African American) 86.7 ml/min; Magnesium 1.8 mg/dl (1.7-2.4); Potassium 2.9 mmol/L (3.5-5.1)
[2022-02-13] MEDS ORDERED: POTASSIUM CHLORIDE CRTAB 20 MEQ TABCR PO STA ×2 (07:52→11:16)
[2022-02-13] MEDS: BISOPROLOL FUMARATE 5 MG TAB PO SCH (08:31)
[2022-02-13] MEDS: hydrALAZINE 10 MG TAB PO SCH ×3 (08:31→20:43)
[2022-02-13] MEDS: PANTOprazole 40 MG TAB PO SCH (08:31)
[2022-02-13] MEDS: MULTIVITAMIN TAB PO SCH (08:31)
[2022-02-13] MEDS: POLYETHYLENE (MIRALAX) 17 GM PACK PO SCH (08:32)
[2022-02-13] MEDS: PSYLLIUM or GUAR GUM FIBER POWDER PACKET PO SCH (08:33)
--- NOTE | 2022-02-13 10:11 | Neurology Progress Note ---
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 Patient's neurological examination is unchanged this morning, continues to exhibit a severe left hemiplegia, face arm and leg, rightward gaze preference, and element of left-sided neglect. At this point, patient stable for transfer to rehabilitation hospital. Would recommend obtaining a follow-up CT of the head in 6 to 7 days to further ensure stability and resolution of hemorrhagic transformation and edema. Would then consider restarting aspirin 81 mg/day. Would also recommend 30-day mobile cardiac outpatient telemetry. May follow-up with myself or an APC in neurology clinic in 2 to 3 weeks. Admission and Anticipated Discharge Date Admission Date: February 09, 2022 Subjective Follow-up for stroke Patient denies any significant change in her symptoms. Continues to exhibit a rightward gaze preference, dense left hemiplegia, element of left-sided neglect. Denies headache or pain. No swallowing difficulty or dysarthria. Review of Systems Eyes: no blind spots and no diplopia Neurologic: + localized weakness; no tremor(s) and no headache(s) Results & Data ([facility]) Vital Signs (Past 12 Hours) Vital Signs Temp Pulse Resp BP Pulse Ox 02/13/22 08:00 36.7 C 75 17 135/80 95 02/13/22 04:54 36.3 C L 67 18 138/71 94 02/12/22 23:05 36.9 C 79 16 150/76 H 96 Laboratory Results WBC 12.38, hemoglobin 14.0, hematocrit 39.2, MCV 86.2, platelet count 268, sodium 129, potassium 2.9, BUN 20, creatinine 0.60, glucose 126, calcium 8.9, magnesium 1.8. Diagnostic Findings Repeat CT of the head completed yesterday revealed a subacute evolving right basal ganglia/MCA territory infarct with surrounding edema and hemorrhagic transformation, not significantly changed compared with previous study done on February 11. I reviewed the images as well as the radiologist interpretation of this test and agree. There is a chronic lacunar infarct within the right cerebellar hemisphere as well. Exam (Neuro) Neurologic: Oriented to:: Person and Place Attention: negative Span Intact or Concentration Intact Speech Fluency: Other (Speech is mildly aprosodic); negative Dysarthria or Dysfluency Fund of Knowledge: Current Events, Past History and Vocabulary Cranial Nerves: Normal II and III, IV, ; Abnorm VII (Left lower facial droop observed) Motor Strength: Hemiplegia (Severe) Laterality: Left; negative Normal Lower Extremities or Normal Upper Extremities Muscle Bulk/Involuntary Movements: No Involuntary Movements Special Tests: Babinski Present (Left) Coding Level of Care Code 67550 Subseq Hosp Care Lvl 2 Diagnoses Stroke I63.9 CVA mechanism: unspecified (1) Stroke CVA mechanism: unspecified Qualified Code(s): I63.9 - Cerebral infarction, unspecified
[2022-02-13] MEDS: CHLORTHALIDONE 25 MG TAB PO SCH (12:56)
--- NOTE | 2022-02-13 16:17 | Hospitalist Progress Note ---
Date of Service February 13, 2022 Assessment & Plan (1) Stroke: Plan: 81-year-old female with a past medical history of cerebellar stroke, PFO, breast cancer, coronary artery disease, hypertension, GERD presents as a stroke alert for evaluation of strokelike symptoms diagnosed with a right basal ganglia stroke admitted for stroke protocol without TPA. Fall and acute left-sided muscle weakness secondary to right basal ganglia stroke Not a TPA candidate on admission -Neurovascular checks -BRAIN MRI showing 3.9 x 2.6 cm acute infarct within the right basal ganglia with mild mass effect. No acute hemorrhage. Numerous additional smaller foci of acute infarction within the right frontal and temporal lobes. -speech evaluation with rec. for minced and moist diet -Duplex negative for DVT -ECHO without significant abnormalities noted -Aspirin on hold due to hemorrhagic conversion -Continuing Crestor -CT 02/10 showing acute/subacute right basal ganglia stroke, now with associated petechial hemorrhage, stable edema, mild shift. -Neurology following - Continue to hold patient's aspirin. - Additional follow-up CT of the head in 1 week. Assuming resolution/stability at that time, would then restart daily low-dose aspirin. Brain compression - Secondary to mild shift from edema surrounding stroke - Monitor for stability - Repeat CT as above Electrolyte disturbances -Repleted K -recheck in am Hypertension - Home antihypertensives restarted 02/11, BP goals as above - Labetalol prn ordered for SBP > 160 - Due to hypok - holding hctz. continue bisoprolol and chlorthalidone. GERD -Continue omeprazole Coronary artery disease - continue Rosuvastatin FEN:minced and moist per. speech Code Status:Full code DVT PPX:Contraindicated, SCDs PT/OT:Consulted, rec. [facility] rehab Dispo:Telemetry, working on placement at inpatient rehab plan for transportation 02/14 (2) Acute left-sided muscle weakness: (3) Hypertension: (4) Multiple lung nodules on CT: (5) Hip pain, right: (6) Intraductal carcinoma of right breast: Admission and Anticipated Discharge Date Admission Date: February 09, 2022 Supervising Physician Co-Signing Physician Notes Resident Physician Supervision Note: I independently interviewed and examined the patient and verified the mercado history and physical, reviewed labs and image studies and agree with resident Dr. Mcclure findings and care plan. Subjective Tea Sepulveda is doing well this morning. She had trouble sleeping while in the hospital and was not eating as well. She is anxious to go to rehab today but we were not able to arrange transportation until tomorrow. Physical Exam Constitutional: WD/WN, vitals as above ENMT: external ear and nose normal, oropharynx normal Neck: normal visual inspection Respiratory: normal respiratory effort, lungs clear to auscultation Cardiovascular: RRR, no murmur, no edema Gastrointestinal (Abdomen): normal bowel sounds, soft, nontender, no hepatosplenomegaly Skin: no rashes, warm and dry Psychiatric: - Left arm and leg 0/5 strength - left facial droop - + Babinski sign - PERRL Results & Data Results & Data ([facility]) Vital Signs (Past 12 Hours) Vital Signs Temp Pulse Pulse Resp BP Pulse Ox 02/13/22 15:51 60 02/13/22 10:54 36.7 C 67 18 152/90 H 97 02/13/22 08:48 67 02/13/22 08:00 36.7 C 75 17 135/80 95 02/13/22 04:54 36.3 C L 67 18 138/71 94 CBC Results Results Complete Blood Count Results: RBC 4.55 M/uL (4.2-5.4) 02/13/22 WBC 12.38 K/uL (4.8-10.8) H 02/13/22 Hgb 14.0 g/dL (12.0-16.0) 02/13/22 Hct 39.2 % (37-47) 02/13/22 Plt Count 268 K/uL (130-400) 02/13/22 Chemistry (BMP) Results BMP Results: Sodium 129 mmol/L (136-145) L 02/13/22 Potassium 2.9 mmol/L (3.5-5.1) L 02/13/22 Chloride 95 mmol/L (98-107) L 02/13/22 Carbon Dioxide 26 mmol/L (21-32) 02/13/22 Anion Gap 8 (3-11) 02/13/22 BUN 20 mg/dl (6-23) 02/13/22 Creatinine 0.60 mg/dl (0.6-1.2) 02/13/22 Glucose 126 mg/dl (70-99(Fasting)) H 04/08/22 Resident Activity Tracking Resident Involvement: Resident Care Provided Care Provided: Adult Hospital Medicine (1) Stroke CVA mechanism: unspecified Qualified Code(s): I63.9 - Cerebral infarction, unspecified
[2022-02-13] MEDS: MELATONIN 3 MG TAB PO PRN (20:42)
[2022-02-13] MEDS: ROSUVASTATIN CALCIUM 20 MG TAB PO SCH (20:43)
[2022-02-13] MEDS: CHOLECALCIFEROL 1,000 UNITS 25 MCG TAB PO SCH (20:43)
[2022-02-14 06:07] LABS: Eosinophils % (auto) 1.6 %; Hematocrit (blood only) 39.6 % (37-47); Hemoglobin 14.1 g/dL (12.0-16.0); Immature Granulocytes # (auto) 0.08 K/uL (0.00-0.02); Immature Granulocytes % (auto) 0.6 %; Lymphocytes # (auto) 1.02 K/uL (1.2-3.4); Lymphocytes % (auto) 8.2 %; Mean Corpuscular Hemoglobin 30.7 pg (25-34); Mean Corpuscular Hgb Conc 35.6 g/dL (32-36); Mean Corpuscular Volume 86.3 fL (80-100); Mean Platelet Volume 9.9 fL (7.4-10.4); Monocytes # (auto) 1.37 K/uL (0.11-0.59); Neutrophils # (auto) 9.74 K/uL (1.4-6.5); Neutrophils % (auto) 78.6 %; Platelet Count 264 K/uL (130-400); RDW Coefficient of Variation 12.7 % (11.5-14.5); RDW Standard Deviation 40.6 fL (36.4-46.3); Red Blood Count 4.59 M/uL (4.2-5.4); White Blood Count 12.41 K/uL (4.8-10.8)
[2022-02-14 06:31] LABS: BUN Creatinine Ratio 40.4 (10-20); Calcium 8.9 mg/dl (8.5-10.1); Est GFR (African American) 108.9 ml/min; Est GFR (Non-African American) 93.9 ml/min; Potassium 3.1 mmol/L (3.5-5.1)
--- NOTE | 2022-02-14 07:53 | Discharge Summary ---
Date of Service February 14, 2022 Admission HPI Per Admitting Provider 81-year-old female with a past medical history of stroke, PFO, breast cancer, coronary artery disease, hypertension, GERD presents as a stroke alert for evaluation of strokelike symptoms diagnosed with a right basal ganglia stroke admitted for stroke protocol without TPA. The patient notes that she lives alone and was in her usual state of health until around 230 this afternoon when she fell. She states she fell because she was weak and she laid on the floor this was approximately 9 hours prior to arrival. She states that the weakness is located in her left arm and leg and is significant Upon arrival to the emergency department given the timing the patient was outside of the TPA window, she was urgently rushed for imaging which demonstrated an infarct of the right basal ganglia, no large vessel occlusion and nothing amenable to endovascular intervention. Dr. Squires from the [facility] stroke team agreed that the patient was outside the TPA window and reviewed the case his images and agreed with the emergency department's assessment. Chest x- ray was negative, CTA neck was negative, CT C-spine was negative. Routine labs were obtained CBC was notable for a white count of 13 with a neutrophil predomi nance, coags were normal, chemistries demonstrated a sodium of 128, BUN of 38, creatinine 0.62, glucose 141, magnesium 1.5 liver function studies were within normal limits, total protein was 5.8, urine was negative, COVID negative. Given the patient's imaging and laboratory findings the hospitalist service was consulted for admission for the stroke protocol without TPA. On upon arrival to the room the patient was lying comfortably in bed denying any pain or other concerning symptoms. She reiterated a history as described above. She notes that she was lying on the floor for at least 7 hours. While she was on the floor she was struggling to reach her cell phone which was on a desk. Eventually she was able to contact 911. Acute concerns relate to stroke severity, all questions answered Admission Exam Per Admitting Provider General: No acute distress lying in bed HEENT: Normocephalic atraumatic, gaze towards the right Neck: Normal visual inspection Cardiac: Regular rate and rhythm I did not appreciate significant murmurs rubs or gallops, normal S1, normal S2, 1+ pedal edema, negative calf tenderness Respiratory: Clear to auscultation bilaterally with symmetrical chest expansion did not appreciate any significant wheezes, rales, rhonchi GI: Soft, nontender, nondistended, bowel sounds present MSK: Complete hemiparesis of the left side Neuro: Alert and oriented x4, gross deficits in the CN II through XII on the left side, of note, the trigeminal nerve was intact, Psych: Calm and cooperative Principal Diagnosis Stroke Discharge Exam Constitutional: WD/WN, vitals as above ENMT: external ear and nose normal, oropharynx normal Neck: normal visual inspection Respiratory: normal respiratory effort, lungs clear to auscultation Cardiovascular: RRR, no murmur, no edema Gastrointestinal (Abdomen): normal bowel sounds, soft, nontender, no hepatosplenomegaly Skin: no rashes, warm and dry Psychiatric: - Left arm and leg 0/5 strength - left facial droop - + Babinski sign - PERRL Discharge Data Allergies Allergy/AdvReac Type Severity Reaction Status Date / Time amlodipine Allergy Intermediate edema Verified 02/08/22 23:14 atorvastatin Allergy Intermediate joint pain Verified 02/08/22 23:14 lisinopril Allergy Intermediate cough Verified 02/08/22 23:14 buck Allergy Intermediate rash Verified 02/08/22 23:14 Penicillins Allergy Unknown ? RASH Verified 02/08/22 23:14 CHILD Consultations 02/09/22 00:12 ED Decision to Admit Stat 02/09/22 02:59 Consult Neurology Routine Ordered Studies 02/08/22 22:54 CT angio head w con Stat CT angio neck with con Stat CT head/brain wo con Stat 02/08/22 22:57 CT cervical spine wo con Stat 02/09/22 07:04 US venous doppler LE BI Routine 02/09/22 08:00 MR brain wo/w con Routine 02/10/22 09:31 CT head/brain wo con Routine 02/10/22 17:00 CT head/brain wo con Stat 02/11/22 14:39 CT head/brain wo con Routine 02/12/22 14:59 CT head/brain wo con Routine Hospital Course (1) Stroke: 81-year-old female with a past medical history of cerebellar stroke, PFO, breast cancer, coronary artery disease, hypertension, GERD presents as a stroke alert for evaluation of strokelike symptoms and diagnosed with a right basal ganglia stroke admitted for stroke protocol without TPA. Fall and acute left-sided muscle weakness secondary to right basal ganglia stroke Not a TPA candidate on admission -BRAIN MRI showing 3.9 x 2.6 cm acute infarct within the right basal ganglia with mild mass effect. No acute hemorrhage. Numerous additional smaller foci of acute infarction within the right frontal and temporal lobes. -speech evaluation with rec. for minced and moist diet -Duplex negative for DVT -ECHO without significant abnormalities noted -Neurology followed -Crestor -Aspirin was put on hold due to hemorrhagic conversion -CT 02/10 showing acute/subacute right basal ganglia stroke with associated petechial hemorrhage, stable edema, mild shift. - Had serial CT scan to monitor stability. - To Continue to hold patient's aspirin on dischage. - Additional follow-up CT of the head in 1 week. Assuming stability at that time, would then restart daily low-dose aspirin. Hypertension - home bisoprolol/hctz and chlorthalidone stopped due to hypokalemia - started Losartan and bisoprolol - Monitor electrolytes at [facility] GERD -Continue omeprazole Coronary artery disease - continue Rosuvastatin FEN:minced and moist per. speech Code Status:Full code Total Time Total Time Spent Total Time Spent (In Minutes): see attending attestation Discharge Plan Discharge Items Patient Disposition: Transfer [facility] Reason For Visit: STROKE SYMPTOMS Discharge Diagnosis: stroke Activity: Per Instructions section Non-emergency contact: Primary Care Provider and Neurologist Call non-emergency contact if: your symptoms worsen Follow-up/Referrals: Ludwig Gary MD [Primary Care Provider] - Diet: Regular Diet Texture: Easy to Chew Addtl Attending Provider Instructions: 81-year-old female with a past medical history of cerebellar stroke, PFO, breast cancer, coronary artery disease, hypertension, GERD presents as a stroke alert for evaluation of strokelike symptoms diagnosed with a right basal ganglia stroke admitted for stroke protocol without TPA. Right basal ganglia stroke with left side weakness Not TPA candidate -BRAIN MRI showing 3.9 x 2.6 cm acute infarct within the right basal ganglia with mild mass effect. No acute hemorrhage. Numerous additional smaller foci of acute infarction within the right frontal and temporal lobes. -speech evaluation with rec. for minced and moist diet -Duplex negative for DVT -ECHO without significant abnormalities noted -Aspirin held due to hemorrhagic conversion -Neurology consulted - Continue with Crestor. -CT 02/10 showing acute/subacute right basal ganglia stroke, now with associated petechial hemorrhage, stable edema, mild shift. - Repeat later 02/10, 02/11 & 02/12 stable --- Recheck CT-H in one week (approx. 02/20) if stable consider restarting ASA if stable Hypertension - home bisoprolol/hctz and chlorthalidone stopped due to hypokalemia - started Losartan and bisoprolol Hypokalemia - bisoprolol/hctz and chlorthalidone stopped as above - continue to follow BMP GERD -Continue omeprazole Coronary artery disease -switched from Simvastatin to Rosuvastatin 20 mg daily Diet:minced and moist per. speech Code Status:Full code Pending Studies at Discharge: No Stand-Alone Forms: [facility] Items Patient informed of condition?: Yes DNR: No Discharge Level of Care: Acute rehab Communicable Disease: No Discharge Prognosis: Stable Lines: None Urinary Catheter: No Medications and DC Order Prescriptions: New rosuvastatin [Crestor] 20 mg Tablet 20 mg PO QPM Qty: 30 RF: 0 losartan 25 mg tablet 25 mg PO DAILY Qty: 30 RF: 0 bisoprolol fumarate 5 mg tablet 5 mg PO DAILY Qty: 30 RF: 0 Continued cholecalciferol (vitamin D3) [Vitamin D3] 2,000 unit Tablet 2,000 unit PO QPM RF: 0 omeprazole 40 mg capsule,delayed release(DR/EC) 20 mg PO DAILY RF: 0 multivitamin Tablet 1 tab PO DAILY RF: 0 psyllium husk [Fiber (psyllium husk)] 0.4 gram Capsule 0.8 g PO DAILY RF: 0 Discontinued bisoprolol-hydrochlorothiazide [Ziac] 5-6.25 mg Tablet 1 tab PO QAM RF: 0 chlorthalidone 25 mg Tablet 25 mg PO QAM RF: 0 simvastatin 20 mg Tablet 20 mg PO PM RF: 0 Discharge Orders: Discharge Order (Routine); Ordered 02/14/22 Ordered By: Curt Mcclure Admission Data Admit Date/Time: 02/09/22 01:16 Attending Provider: Kae Younger Admit Provider: Dominic Lund I. Primary Care Provider: Ludwig Gary Other Providers: Julio Aragon ; Josué Gaffney ; Tim Maharaj ; Barbie Harris ; Jessica Campos ; Jayleen Spence ; [facility] Other Interventions: Discharge Summary Assessment (RN) Last Done: 02/14/22 10:52 Supervising Physician Co-Signing Physician Notes Resident Physician Supervision Note: I independently interviewed and examined the patient and verified the mercado history and physical, reviewed labs and image studies and agree with resident Dr. Mcclure findings and care plan. Resident Activity Tracking Resident Involvement: Resident Care Provided Care Provided: Adult [facility] Medicine CBC Results Results Complete Blood Count Results: RBC 4.59 M/uL (4.2-5.4) 02/14/22 WBC 12.41 K/uL (4.8-10.8) H 02/14/22 Hgb 14.1 g/dL (12.0-16.0) 02/14/22 Hct 39.6 % (37-47) 02/14/22 Plt Count 264 K/uL (130-400) 02/14/22 Chemistry (BMP) Results BMP Results: Sodium 128 mmol/L (136-145) L 02/14/22 Potassium 3.1 mmol/L (3.5-5.1) L 02/14/22 Chloride 96 mmol/L (98-107) L 02/14/22 Carbon Dioxide 23 mmol/L (21-32) 02/14/22 Anion Gap 9 (3-11) 02/14/22 BUN 19 mg/dl (6-23) 02/14/22 Creatinine 0.47 mg/dl (0.6-1.2) L 02/14/22 Glucose 120 mg/dl (70-99(Fasting)) H 02/14/22
[2022-02-14 08:08] VITALS: BP 133/83; TEMP 98.2; O2SAT 95
[2022-02-14] MEDS ORDERED: POTASSIUM CHLORIDE CRTAB 20 MEQ TABCR PO STA (08:22)
[2022-02-14] MEDS: MULTIVITAMIN TAB PO SCH (08:43)
[2022-02-14] MEDS: PANTOprazole 40 MG TAB PO SCH (08:43)
[2022-02-14] MEDS: BISOPROLOL FUMARATE 5 MG TAB PO SCH (08:44)
[2022-02-14] MEDS: PSYLLIUM or GUAR GUM FIBER POWDER PACKET PO SCH (08:44)
[2022-02-14] MEDS: hydrALAZINE 10 MG TAB PO SCH (08:44)
[2022-02-14] MEDS: POLYETHYLENE (MIRALAX) 17 GM PACK PO SCH (08:45)
[2022-02-14] MEDS ORDERED: STROKE PATIENT DISCHARGE STA (09:40)
[2022-02-14 10:55] VITALS: PULSE 74
--- NOTE | 2022-02-17 04:46 | Billing Data ---
Date of Service February 17, 2022 Coding Level of Care Code 92868 Initial Inpt Care Lvl 3
== END 2022-02-14 12:09 | DRG 64 ==
LOC: ED 22:53 → 2S 02-09 01:16 → SUATTDRO 02-09 01:16 → 2S 02-09 03:04

== ENCOUNTER 2023-05-27 13:43 | Observation (INO) ==
[2023-05-27] MEDS ORDERED: ONDANSETRON INJ 2 MG/ML 2 ML VIAL IV STA (14:14)
[2023-05-27] MEDS ORDERED: SODIUM CHLORIDE 0.9% 1000ML 1,000 ML IV ONE (14:14)
--- NOTE | 2023-05-27 14:16 | Emergency Department Note ---
Impression & Plan Transaminitis ADMIT ED Provider Note HPI: The patient is an 83-year-old female with history of prior CVA with residual left-sided paresis, presents emergency department with chief complaint of nausea and vomiting for the past 4 days. Patient states that she has not been able to tolerate p.o. intake during this time. Patient states she has some generalized abdominal discomfort that seems to radiate into her chest at times. On arrival here to the ED the patient is hemodynamically stable, she is afebrile, she is saturating well on room air on arrival. ROS: - Per HPI Differential Diagnosis: Small bowel obstruction, acute cholecystitis, diverticulitis flare, acute appendicitis, perforated viscus, viral gastroenteritis, amongst other potential pathologies. *Outpatient medications and allergy history reviewed. *Pertinent external medical records reviewed. PE: General: Alert HEENT: Normocephalic, trachea midline Eyes: Extraocular eye movement is intact, no scleral erythema Pulmonary: Clear to auscultation bilaterally, no wheezing Cardio: Regular rate and rhythm GI: Abdomen is soft to palpation, mild distention, mild tenderness to palpation without guarding or rigidity : No suprapubic tenderness MSK: No evidence of trauma or malformation of the extremities, no edema Skin: No evidence of rash Neuro: Alert, baseline paresis of the left upper extremity and lower extremity status post CVA, otherwise no new focal deficits Psychiatric: Cooperative quality assurance monitor body: (As interpreted by myself): - An order was placed for continuous cardiac monitoring - Patient was noted to be in sinus rhythm with a rate of 70 Interventions provided in ED: - IV Zofran, IV fluid bolus, IV Zosyn Medical Decision Making: Shortly after the patient arrived IV was established lab work obtained, patient was maintained on cardiac monitor technician. EKG shows normal sinus rhythm without any acute ischemic changes per my interpretation. Patient complained of some upper abdominal pain indigestion and nausea and vomiting over the past several days therefore she was given IV Zofran and IV fluids. Lab work shows a mild leukocytosis of 11.38, hemoglobin is normal, platelet count is normal, CMP does not show any evidence of any critical electrolyte abnormalities, there is a transaminitis and bilirubin is elevated at 3.6. AST is 78, ALT 225, alk phos is elevated at 547. Troponin is negative. Ultrasound imaging of the right upper quadrant was obtained that shows evidence of both intra and extra hepatic ductal dilatation. No obvious stone is identified, no obvious cholecystitis. At this time I do have concern for possible choledoch olithiasis, I discussed the patient's presentation with on-call gastroenterology, Dr. Harris, recommends admission to medicine, MRCP, he does state that Dr. Sabillon from gastroenterology will be available tomorrow to perform an ERCP if determined appropriate. I discussed this with the patient and patient is in agreement for admission. She was given a dose of IV Zosyn prior to admission and blood cultures were drawn. [facility] hospitalist service was consulted for admission and the patient was placed for admission in stable condition. Consultants: -Dr. Harris, Gastroenterology -Dr. Cardozo, hospitalist Disposition discussion held by myself with: Patient Diagnosis: 1. Transaminitis, acute 2. Hyperbilirubinemia 3. Nausea and vomiting, acute 4. Abdominal pain, acute Disposition: Admission Jose D Luis DO Emergency Medicine Past Med/Surg History Medical History Acute left-sided muscle weakness Bicuspid aortic valve Diverticular disease Fall H/O: CVA (cerebrovascular accident) Hiatal hernia History of anemia Hx of breast cancer Hyperlipidemia Hypertension Hypomagnesemia Intraductal carcinoma of right breast Lab test negative for COVID-19 virus PFO (patent foramen ovale) Pulmonary nodule Stroke Torn rotator cuff Surgical History History of bunionectomy of right great toe History of colonoscopy History of lumpectomy of right breast History of repair of hiatal hernia Hx of hysterectomy Social History Smoking Status: Never smoker Second Hand Exposure: No; Do You Dip or Chew Tobacco: No; Hx Alcohol Use: Yes Alcohol type: wine Hx Substance Use: No Preferred Language: Faroese Communication Ability: Effective Visual Impairment: No Limitations Float Phlebotomist Required: No Beliefs That Will Affect Care: None marital status: / Current Living Situation: Correction Feels Safe at Home: Yes Assistive Devices: Glasses Allergies Allergies Allergy/AdvReac Type Severity Reaction Status Date / Time amlodipine Allergy Intermediate edema Verified 11/16/22 14:16 atorvastatin Allergy Intermediate joint pain Verified 11/16/22 14:16 lisinopril Allergy Intermediate cough Verified 11/16/22 14:16 buck Allergy Intermediate rash Verified 11/16/22 14:16 Penicillins Allergy Unknown ? RASH Verified 11/16/22 14:16 CHILD Home Meds Home Medications Medication Instructions Recorded Confirmed cholecalciferol (vitamin D3) 50 2,000 unit PO QPM 04/18/19 11/16/22 mcg (2,000 unit) tablet (Vitamin D3) multivitamin 1 tab PO DAILY 02/22/20 11/16/22 omeprazole 40 mg capsule,delayed 20 mg PO DAILY 09/10/21 11/16/22 release psyllium husk 0.4 gram capsule 0.8 g PO DAILY 02/08/22 11/16/22 (Fiber (psyllium husk)) aspirin 81 mg tablet,delayed 81 mg PO DAILY 04/07/22 11/16/22 release (Adult Low Dose Aspirin) diclofenac sodium 1 % topical gel 2 g topical QID PRN Pain 04/07/22 11/16/22 losartan 100 mg tablet 100 mg PO DAILY 04/07/22 11/16/22 polyethylene glycol 3350 17 17 g PO DAILY PRN Constipation 04/07/22 11/16/22 gram/dose oral powder (Miralax) sodium chloride 1 gram tablet 1,000 mg PO DAILY 04/07/22 11/16/22 docusate sodium 100 mg capsule 100 mg PO DAILY 05/21/22 11/16/22 (Colace) carvedilol 25 mg tablet 25 mg PO BID 07/20/22 11/16/22 naproxen sodium [Aleve] PO DAILY 07/20/22 11/16/22 trazodone 50 mg tablet 100 mg PO DAILY 07/20/22 11/16/22 amlodipine 2.5 mg tablet 2.5 mg PO DAILY 10/26/22 11/16/22 pravastatin 20 mg tablet 20 mg PO Q OTHER DAY 10/26/22 11/16/22 spironolactone 25 mg tablet 25 mg PO DAILY 10/26/22 11/16/22 Results & Data (ED) Vital Signs Vital Signs - 24 hr 05/27/23 13:48 05/27/23 14:27 Temperature 36.5 C Temperature Source Oral Pulse Rate 79 72 Pulse Rhythm Regular Pulse Strength Normal Respiratory Rate 18 Respiratory Effort / Characteristics Non-Labored Spontaneous Respiratory Depth Normal Respiratory Pattern Regular Blood Pressure 158/86 H Blood Pressure Mean 110 Blood Pressure Position Sitting Pulse Oximetry 98 Oxygen Delivery Method Room Air Sepsis Recent Fever Within 48 Hours No Sepsis New/Unexplained Change in Mental Status No Sepsis Action Taken by Nursing No Action Required Laboratory Data 05/27/23 14:03 05/27/23 14:03 Lab Results 05/27/23 05/27/23 Range/Units 14:03 14:03 WBC 11.38 H (4.8-10.8) K/ul RBC 4.24 (4.20-5.40) M/uL Hgb 12.9 (12.0-16.0) g/dl Hct 38.0 (37.0-47.0) % MCV 89.6 (80.0-100.0) fL MCH 30.4 (25.0-34.0) pg MCHC 33.9 (32.0-36.0) g/dL RDW Std Deviation 41.5 (36.4-46.3) fL RDW Coeff of Reg 12.8 (11.5-14.5) % Plt Count 298 (130-400) K/uL MPV 9.3 L (9.4-12.4) fL Immature Gran % (Auto) 0.4 % Neut % (Auto) 87.5 % Lymph % (Auto) 4.7 % [place] % (Auto) 6.2 % Eos % (Auto) 0.8 % Baso % (Auto) 0.4 % Neut # (Auto) 9.96 H (1.40-6.50) K/uL Lymph # (Auto) 0.53 L (1.2-3.4) K/uL [place] # (Auto) 0.71 H (0.11-0.59) K/uL Eos # (Auto) 0.09 (0-0.50) K/uL Baso # (Auto) 0.05 (0-0.2) K/uL Immature Gran # (Auto) 0.04 (0.01-0.20) K/uL Sodium 133 L (136-145) mmol/L Potassium 4.0 (3.5-5.1) mmol/L Chloride 99 (98-107) mmol/L Carbon Dioxide 26 (21-32) mmol/L Anion Gap 8 (3-11) BUN 13 (6-23) mg/dl Creatinine 0.59 L (0.6-1.2) mg/dl Est Cr Clr Drug Dosing 64.8 ml/min Est GFR ( Amer) 99.6 ml/min Est GFR (Non-Af Amer) 86.0 ml/min BUN/Creatinine Ratio 22.0 H (10-20) Glucose 142 H (70-99(Fasting)) mg/dl Calcium 9.6 (8.6-10.3) mg/dl Total Bilirubin 3.6 H D (0.2-1.0) mg/dl AST 78 H (13-39) U/L ALT 225 H (7-52) U/L Alkaline Phosphatase 547 H (34-104) U/L Troponin I High Sens 7.8 (0-14) pg/ml Total Protein 6.5 (6.0-8.3) gm/dl Albumin 3.8 (3.4-5.0) gm/dl Globulin 2.7 (2.5-4.0) gm/dl Albumin/Globulin Ratio 1.4 (0.9-2) Lipase 22 (11-82) U/L Administered Medications Discontinued Medications Sodium Chloride (Nss 1000ml) 1,000 mls @ 999 mls/hr IV .Q1H1M ONE Stop: 05/27/23 15:14 Last Admin: 05/27/23 14:20 Dose: 999 mls/hr Documented By: REGAN Ondansetron HCl (Ondansetron Inj 2 Mg/Ml 2 Ml Vial) 4 mg IV NOW STA Stop: 05/27/23 14:15 Last Admin: 05/27/23 14:19 Dose: 4 mg Documented By: REGAN Imaging Data Radiologist's Impression: Chest X-Ray 05/27/23 14:13 XR chest 1V portable CLINICAL HISTORY: Chest pain. COMPARISON STUDY: Chest CT September 06, 2020. Chest radiograph February 08, 2022. FINDINGS: Right shoulder arthroplasty is incidentally noted. There is no pneumothorax or pleural effusion. A hiatal hernia is present. Note is made of mild cardiomegaly without evidence for pulmonary edema. There is no consolidation to suggest pneumonia. A 1.7 cm irregular nodular density within the right upper lobe likely corresponds to the finding on chest CT of September 06, 2020. This has likely increased in size. IMPRESSION: 1. No acute cardiopulmonary findings. 2. Increase in size of a 1.7 cm irregular density within the right upper lobe which corresponds to the lesion on prior chest CT. This lesion may be within the adenocarcinoma spectrum. Follow-up nonemergent chest CT is recommended. ACT 112: Positive. There are findings on this exam that require communication between the performing entity and the patient following Patient Test Result Information Act ([place] Act 112) guidelines. Electronically signed by: Alex Moon M.D. 05/27/2023 3:30 PM Gallbladder Ultrasound 05/27/23 15:19 US gallbladder CLINICAL HISTORY: Nausea and vomiting, elevated bilirubin COMPARISON STUDY: Right upper quadrant ultrasound June 21, 2020. FINDINGS: No hepatic lesions are identified. There has been interval development of moderate intra and extrahepatic biliary ductal dilatation since ultrasound of June 21, 2020. Common bile duct measures 1.1 cm in caliber. No common bile duct calculi are identified although these may be occult by sonography. Multiple gallstones within the gallbladder are noted. No sonographic Campos sign was elicited. The gallbladder is moderately distended. There is minimal gallbladder wall thickening. No pericholecystic fluid is present. Pancreatic body is normal. Head and tail are partially obscured. There is no right hydronephrosis. IMPRESSION: 1. Interval development of moderate intra and extrahepatic biliary ductal dilatation. Although no common bile duct calculi identified, these may be occult by sonography. If indicated, MRCP could be obtained. 2. Cholelithiasis with moderate gallbladder distention. No sonographic Campos sign. Therefore, the findings are not strongly suggestive of acute cholecystitis although a hepatobiliary scan could be obtained if indicated. ACT 112: Negative or not required by law. Electronically signed by: Alex Moon M.D. 05/27/2023 4:29 PM Discharge Plan Visit Data Chief Complaint: Vomiting Stated Complaint: VOMITING, ABNORMAL LABS, REF BY DOC ED Provider: Jose D Luis Discharge Problem: Transaminitis Forms Stand Alone Forms: My [facility] [employer] Prescriptions Prescriptions: No Action pravastatin 20 mg tablet 20 mg PO Q OTHER DAY amlodipine 2.5 mg tablet 2.5 mg PO DAILY trazodone 50 mg tablet 100 mg PO DAILY sodium chloride 1 gram tablet 1,000 mg PO DAILY diclofenac sodium 1 % gel 2 g topical QID PRN (Reason: Pain) Rx Instructions: apply to single elbow, wrist or hand; for hand includes palm/fingers/back of hand polyethylene glycol 3350 [Miralax] 17 gram/dose powder 17 g PO DAILY PRN (Reason: Constipation) aspirin [Adult Low Dose Aspirin] 81 mg tablet,delayed release (DR/EC) 81 mg PO DAILY losartan 100 mg tablet 100 mg PO DAILY docusate sodium [Colace] 100 mg capsule 100 mg PO DAILY spironolactone 25 mg tablet 25 mg PO DAILY naproxen sodium [Aleve] PO DAILY carvedilol 25 mg tablet 25 mg PO BID Rx Instructions: must administer with a meal/food cholecalciferol (vitamin D3) [Vitamin D3] 2,000 unit Tablet 2,000 unit PO QPM omeprazole 40 mg capsule,delayed release(DR/EC) 20 mg PO DAILY multivitamin Tablet 1 tab PO DAILY psyllium husk [Fiber (psyllium husk)] 0.4 gram Capsule 0.8 g PO DAILY Referrals Referrals: Ani Hurley [Primary Care Provider] -
[2023-05-27 14:46] LABS: Basophils # (auto) 0.05 K/uL (0-0.2); Basophils % (auto) 0.4 %; Eosinophils # (auto) 0.09 K/uL (0-0.50); Eosinophils % (auto) 0.8 %; Hemoglobin 12.9 g/dl (12.0-16.0); Immature Granulocytes # (auto) 0.04 K/uL (0.01-0.20); Immature Granulocytes % (auto) 0.4 %; Lymphocytes # (auto) 0.53 K/uL (1.2-3.4); Lymphocytes % (auto) 4.7 %; Mean Corpuscular Hemoglobin 30.4 pg (25.0-34.0); Mean Corpuscular Hgb Conc 33.9 g/dL (32.0-36.0); Mean Corpuscular Volume 89.6 fL (80.0-100.0); Mean Platelet Volume 9.3 fL (9.4-12.4); Monocytes # (auto) 0.71 K/uL (0.11-0.59); Monocytes % (auto) 6.2 %; Neutrophils # (auto) 9.96 K/uL (1.40-6.50); Neutrophils % (auto) 87.5 %; Platelet Count 298 K/uL (130-400); RDW Coefficient of Variation 12.8 % (11.5-14.5); RDW Standard Deviation 41.5 fL (36.4-46.3); Red Blood Count 4.24 M/uL (4.20-5.40); White Blood Count 11.38 K/ul (4.8-10.8)
[2023-05-27 15:05] LABS: Albumin Globulin Ratio 1.4 (0.9-2); Albumin Level 3.8 gm/dl (3.4-5.0); Bilirubin,Total 3.6 mg/dl (0.2-1.0); Calcium 9.6 mg/dl (8.6-10.3); Creatinine Clr Calc Pharmacy 64.8 ml/min; Est GFR (African American) 99.6 ml/min; Globulin 2.7 gm/dl (2.5-4.0); Total Protein 6.5 gm/dl (6.0-8.3)
[2023-05-27 15:17] LABS: Troponin I High Sensitivity 7.8 pg/ml (0-14)
--- NOTE | 2023-05-27 15:33 | XRay Report ---
XR chest 1V portable CLINICAL HISTORY: Chest pain. COMPARISON STUDY: Chest CT September 06, 2020. Chest radiograph February 08, 2022. FINDINGS: Right shoulder arthroplasty is incidentally noted. There is no pneumothorax or pleural effu rajinder. A hiatal hernia is present. Note is made of mild cardiomegaly without evidence for pulmonary ed joselo. There is no consolidation to suggest pneumonia. A 1.7 cm irregular nodular density within the ri ght upper lobe likely corresponds to the finding on chest CT of September 06, 2020. This has likely inc reased in size. IMPRESSION: 1. No acute cardiopulmonary findings. 2. Increase in size of a 1.7 cm irregular density within the right upper lobe which corresponds to th e lesion on prior chest CT. This lesion may be within the adenocarcinoma spectrum. Follow-up nonemerg ent chest CT is recommended. ACT 112: Positive. There are findings on this exam that require communication between the performing entity and the patient following Patient Test Result Information Act ([place] Act 112) guidelines. Electronically signed by: Alex Moon M.D. 05/27/2023 3:30 PM
--- NOTE | 2023-05-27 16:31 | Ultrasound Report ---
US gallbladder CLINICAL HISTORY: Nausea and vomiting, elevated bilirubin COMPARISON STUDY: Right upper quadrant ultrasound June 21, 2020. FINDINGS: No hepatic lesions are identified. There has been interval development of moderate intra an d extrahepatic biliary ductal dilatation since ultrasound of June 21, 2020. Common bile duct measur es 1.1 cm in caliber. No common bile duct calculi are identified although these may be occult by sono graphy. Multiple gallstones within the gallbladder are noted. No sonographic Campos sign was elicited . The gallbladder is moderately distended. There is minimal gallbladder wall thickening. No perichole cystic fluid is present. Pancreatic body is normal. Head and tail are partially obscured. There is no right hydronephrosis. IMPRESSION: 1. Interval development of moderate intra and extrahepatic biliary ductal dilatation. Although no co mmon bile duct calculi identified, these may be occult by sonography. If indicated, MRCP could be obt ained. 2. Cholelithiasis with moderate gallbladder distention. No sonographic Campos sign. Therefore, the fi ndings are not strongly suggestive of acute cholecystitis although a hepatobiliary scan could be obta ined if indicated. ACT 112: Negative or not required by law. Electronically signed by: Alex Moon M.D. 05/27/2023 4:29 PM
[2023-05-27] MEDS ORDERED: PIPERACILLIN/TAZOBACTAM 4.5 GM/120 ML BAG IV ONE (17:03)
--- NOTE | 2023-05-27 18:11 | History & Physical Report ---
Date of Service May 27, 2023 Assessment & Plan (1) Abdominal pain: Plan: Suspected choledocholithiasis - Discussed w/ GI by ER: Consult cindy in AM for ERCP. MRCP ordered, pending -Patient would like gallbladder removed if possible. No evidence of cholecystitis on admission, no indication for emergent cholecystectomy. Consult surgery in a.m. and may consider removal of gallbladder with history of stones and suspected choledocholithiasis Leukocytosis of 11 with vomiting, nno left shift Creatinine 0.59 Potassium 4.0 Bili/transaminases elevated newly since 05/25. High sensitive troponin 7.8 Lipase 22 COVID pending Gallbladder ultrasound: Moderate intra and extrahepatic ductal dilation, no common bile duct calculi identified noted that could be occult by ultrasound. Cholelithiasis with moderate gallbladder distention; no Campos's. CXR: 1. No acute cardiopulmonary findings. 2. Increase in size of a 1.7 cm irregular density within the right upper lobe which corresponds to the lesion on prior chest CT. This lesion may be within the adenocarcinoma spectrum. Follow-up nonemergent chest CT is recommended. Suspect leukocytosis is due to demargination, will continue empiric coverage with Zosyn at this time. 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 Did have a loop recorder without evidence of A-fib in 2021 Aspirin temporarily held for surgical evaluation GERD Continue omeprazole CAD Continue rosuvastatin Continue carvedilol 25 mg p.o. twice daily M Continue amlodipine/spironolactone for blood pressure control as noted Aspirin temporarily held for surgical evaluate Losartan temporarily held pending surgical evaluation Continue pravastatin -Last echo 02/2022: EF 60-65%, no regional wall motion abnormality, technically challenging study, was performed with contrast for shunt evaluation. No shunt was appreciated although suboptimal image quality overall DVT prophylaxis: Mirza prophylaxis deferred due to history of intracranial hemorrhage. SCDs Diet: N.p.o. Disposition: Medical surgical CODE STATUS: DNR/DNI, discussed with patient about (2) Cryptogenic stroke: (3) Hemiparesis affecting left side as late effect of cerebrovascular accident: (4) Lumbar radiculopathy: (5) Hypertension: History of Present Illness Primary Care Provider: [facility] Kendal Sepulveda is an 83-year-old female with a past medical history of CVA with baseline left-sided paresis Who has had nausea and vomiting for 4 days. Has not tolerated p.o. intake, has abdominal comfort which radiates into her chest. She has a leukocytosis of 11 in the setting of vomiting, neutrophilic predominant without left shift. Tea reports sx started Wednesday. No BM that day and didn't feel well with + nausea. Had some tomato bisque which upset her stomach and caused her to vomit. Wednesday night then got very nauseus with ab pain post dinner and vomited again (no blood/bile). Wednesday was playing cards after the and got very nauseus and vomited 6x after eaching a little bit of food. Did not eat at all du eto an upset stomach. This morning continued to feel poor with dry heaves, worse after just dry toast so talked to PCP. Was found to have transaminitis --> referred to the ER. Last bowel movement was Wednesday. BMs have been more yellowish than normal, no white or joy colored stools. Endorses abdominal pain in her low mid chest and somewhat on the left and right side. This does radiate up into her chest intermittently with a feeling of pressure in her abdomen, does not have shoulder pain or neck pain. Denies shortness of breath. Denies history of NC L hemiparesis at baseline. uses electric wheelchair at [facility].Had intact sensation in L side, but no movement. Notes that she has had gallstones in the past although has never had an episode like this. Would like her gallbladder removed if possible. Medical History: Reviewed Medications: Reviewed Surgical History: Reviewed Family history: Reviewed Allergies: Reviewed. He is not a good historian of her allergies, reports what ever is in the EMR is correct Social History: Denies tobacco/etoh use Code Status: DNR/DNI, discussed with patient at bedside Allergies Allergy/AdvReac Type Severity Reaction Status Date / Time amlodipine Allergy Intermediate edema Verified 11/16/22 14:16 atorvastatin Allergy Intermediate joint pain Verified 11/16/22 14:16 lisinopril Allergy Intermediate cough Verified 11/16/22 14:16 buck Allergy Intermediate rash Verified 11/16/22 14:16 Penicillins Allergy Unknown ? RASH Verified 11/16/22 14:16 CHILD Home Medications Medication Instructions Recorded Confirmed Type cholecalciferol (vitamin D3) 50 2,000 unit PO QPM 04/18/19 11/16/22 History mcg (2,000 unit) tablet (Vitamin D3) multivitamin 1 tab PO DAILY 02/22/20 11/16/22 History omeprazole 40 mg capsule,delayed 20 mg PO DAILY 09/10/21 11/16/22 History release psyllium husk 0.4 gram capsule 0.8 g PO DAILY 02/08/22 11/16/22 History (Fiber (psyllium husk)) aspirin 81 mg tablet,delayed 81 mg PO DAILY 04/07/22 11/16/22 History release (Adult Low Dose Aspirin) diclofenac sodium 1 % topical gel 2 g topical QID PRN Pain 04/07/22 11/16/22 History losartan 100 mg tablet 100 mg PO DAILY 04/07/22 11/16/22 History polyethylene glycol 3350 17 17 g PO DAILY PRN Constipation 04/07/22 11/16/22 History gram/dose oral powder (Miralax) sodium chloride 1 gram tablet 1,000 mg PO DAILY 04/07/22 11/16/22 History docusate sodium 100 mg capsule 100 mg PO DAILY 05/21/22 11/16/22 History (Colace) carvedilol 25 mg tablet 25 mg PO BID 07/20/22 11/16/22 History naproxen sodium [Aleve] PO DAILY 07/20/22 11/16/22 History trazodone 50 mg tablet 100 mg PO DAILY 07/20/22 11/16/22 History amlodipine 2.5 mg tablet 2.5 mg PO DAILY 10/26/22 11/16/22 History pravastatin 20 mg tablet 20 mg PO Q OTHER DAY 10/26/22 11/16/22 History spironolactone 25 mg tablet 25 mg PO DAILY 10/26/22 11/16/22 History Past Med/Surg History Medical History Acute left-sided muscle weakness Bicuspid aortic valve Diverticular disease Fall H/O: CVA (cerebrovascular accident) Hiatal hernia History of anemia Hx of breast cancer Hyperlipidemia Hypertension Hypomagnesemia Intraductal carcinoma of right breast Lab test negative for COVID-19 virus PFO (patent foramen ovale) Pulmonary nodule Stroke Torn rotator cuff Surgical History History of bunionectomy of right great toe History of colonoscopy History of lumpectomy of right breast History of repair of hiatal hernia Hx of hysterectomy Social History Smoking Status: Never smoker Second Hand Exposure: No; Do You Dip or Chew Tobacco: No; Hx Alcohol Use: Yes Alcohol type: wine Hx Substance Use: No Preferred Language: Kyrgyz Communication Ability: Effective Visual Impairment: No Limitations [place] Hardware Installer Required: No Beliefs That Will Affect Care: None marital status: / Current Living Situation: Assisted Feels Safe at Home: Yes Assistive Devices: Glasses Physical Exam Physical Exam: General: A&Ox3. NAD. Cooperative. HEENT: Atraumatic, normocephalic. Vision/hearing grossly intact Pulm: CTAB A&P. -wheezes, -rales, -rhonchi. Symmetrical chest rise. No increased work of breathing. No respiratory distress. Cardiac: RRR, -mrg. Radial pulses intact and symmetrical. Abdominal: Tender to palpation most prominently in epigastrium, slight right upper and left upper quadrant tenderness. No guarding or rigidity. No rebound. Bowel sounds diminished Extremities: Left-sided hemiparesis. Sensation is intact to soft touch in left arm and leg without deficit or asymmetry. Right controlled atmospheric furnace brazer strength, elbow flexion/extension, right hip flexion, right ankle dorsiflexion/plantarflexion are 5/5 Results & Data Results & Data Vital Signs (Past 12 Hours) Vital Signs Temp Pulse Resp BP Pulse Ox O2 Del Method 05/27/23 14:27 72 05/27/23 13:48 36.5 C 79 18 158/86 H 98 Room Air PG Care Time/CCT Total # of Minutes Spent Total Time Spent with Patient: Total time spent is greater than 50% in coordination of care (as documented) at patient's floor/unit and/or counseling patient: Coding Level of Care Code 62819 INT INP/OBS CARE 3/75MIN Diagnoses Abdominal pain R10.9 Cryptogenic stroke I63.9 Hemiparesis affecting left side as late effect of cerebrovascular accident I69.354 Lumbar radiculopathy M54.16 Hypertension I10 Hypertension type: primary hypertension (5) Hypertension Hypertension type: primary hypertension Qualified Code(s): I10 - Essential (primary) hypertension
[2023-05-27] MEDS: PLASMA-LYTE A 1,000 ML IV SCH (19:24)
[2023-05-27] MEDS ORDERED: ACETAMINOPHEN 325 MG TAB PO PRN (21:01)
[2023-05-27] MEDS ORDERED: HYDROmorphone INJ 0.5 MG/0.5 ML SYR IV PRN (21:01)
[2023-05-27] MEDS: PRAVASTATIN SOD 20 MG TAB PO SCH (22:02)
[2023-05-27] MEDS: traZODone HCL 100 MG TAB PO SCH (22:02)
[2023-05-27 23:30] LABS: Appearance Urine Clear (Clear); Bacteria Urine Automated Negative (Negative); Blood Urine Negative (Negative); Cast Urine Automated 0 /lpf (0-5); Color Urine Dark Yellow; Glucose Urine UA Negative (Negative); Ketones Urine 3+ (Negative); Leukocyte Esterase Urine Negative (Negative); Nitrite Urine Positive (Negative); Protein Urine Negative (Negative); Specific Gravity Urine 1.021 (1.000-1.030); Urobilinogen Urine Positive (Negative); pH Urine 5.5 (4.5-7.5)
[2023-05-27 23:35] LABS: Bilirubin Urine 1+ (Negative)
[2023-05-28] MEDS: PIPERACILLIN/TAZOBACTAM 4.5 GM in DEXTROSE 5% 100 ML IV SCH ×3 (02:03→17:50)
[2023-05-28] MEDS: PLASMA-LYTE A 1,000 ML IV SCH ×2 (05:37→18:43)
[2023-05-28 07:04] LABS: Basophils # (auto) 0.02 K/uL (0-0.2); Basophils % (auto) 0.2 %; Eosinophils # (auto) 0.03 K/uL (0-0.50); Eosinophils % (auto) 0.3 %; Hematocrit (blood only) 32.3 % (37.0-47.0); Hemoglobin 11.4 g/dl (12.0-16.0); Immature Granulocytes # (auto) 0.04 K/uL (0.01-0.20); Immature Granulocytes % (auto) 0.5 %; Lymphocytes # (auto) 0.45 K/uL (1.2-3.4); Lymphocytes % (auto) 5.1 %; Mean Corpuscular Hemoglobin 30.6 pg (25.0-34.0); Mean Corpuscular Hgb Conc 35.3 g/dL (32.0-36.0); Mean Corpuscular Volume 86.8 fL (80.0-100.0); Mean Platelet Volume 9.3 fL (9.4-12.4); Monocytes # (auto) 1.02 K/uL (0.11-0.59); Monocytes % (auto) 11.5 %; Neutrophils # (auto) 7.32 K/uL (1.40-6.50); Neutrophils % (auto) 82.4 %; Platelet Count 240 K/uL (130-400); RDW Coefficient of Variation 12.6 % (11.5-14.5); RDW Standard Deviation 39.9 fL (36.4-46.3); Red Blood Count 3.72 M/uL (4.20-5.40); White Blood Count 8.88 K/ul (4.8-10.8)
[2023-05-28 07:27] LABS: Albumin Globulin Ratio 1.5 (0.9-2); Albumin Level 3.1 gm/dl (3.4-5.0); BUN Creatinine Ratio 15.1 (10-20); Calcium 8.6 mg/dl (8.6-10.3); Creatinine Clr Calc Pharmacy 74.9 ml/min; Est GFR (African American) 103.2 ml/min; Globulin 2.1 gm/dl (2.5-4.0); Magnesium 1.4 mg/dl (1.7-2.4); Potassium 3.4 mmol/L (3.5-5.1); Total Protein 5.2 gm/dl (6.0-8.3)
[2023-05-28] MEDS: amLODIPine BESYLATE 5 MG TAB PO SCH (08:34)
[2023-05-28] MEDS: carvediloL 25 MG TAB PO SCH ×2 (08:34→17:50)
[2023-05-28] MEDS: SODIUM CHLORIDE 1 GM TABLET PO SCH (08:34)
[2023-05-28] MEDS: SPIRONOLACTONE 25 MG TAB PO SCH (08:34)
[2023-05-28] MEDS ORDERED: traZODone HCL 100 MG TAB PO SCH (09:00)
[2023-05-28] MEDS ORDERED: PANTOprazole 40 MG TAB PO SCH (09:00)
--- NOTE | 2023-05-28 09:29 | Hospitalist Progress Note ---
Date of Service May 28, 2023 Assessment & Plan (1) Abdominal pain: Plan: Attending: Dr. Mc Most likely etiology is choledocholithiasis. Patient underwent ERCP today and had complete stone removal. A plastic biliary stent was placed in the common bile duct. Day #2 of Zosyn Continue IV support at 100 mL/h Surgery was consulted for consideration of cholecystectomy Discussed with Dr. Serrato at bedside. We will check labs as well as coags and make patient n.p.o. after midnight for further evaluation in the morning (2) Electrolyte imbalance: Plan: Magnesium 1.4. 2 g of magnesium sulfate have been ordered. Repeat magnesium level tonight was 2.0 Sodium 135 on admission now 130. This is stable Potassium 4.1 on admission now 3.4 -replete magnesium. Evening potassium level 3.4. 40 mill equivalents of potassium chloride was given by mouth Repeat labs in the morning (3) Transaminitis: Plan: Secondary to choledocholithiasis. ERCP today with stone removal and biliary stent placement Check repeat labs in the morning (4) Hemiparesis affecting left side as late effect of cerebrovascular accident: Plan: Chronic with no acute changes Patient resides at [facility] PT/OT if required by [facility] prior to discharge (5) Hypertension: Plan: Hemodynamically stable. Evening BP was 133/70. Continue home medications (6) Bicuspid aortic valve: Plan: Continue outpatient management Plan Follow-up with surgery in the morning Discharge back to [facility] when stable Admission and Anticipated Discharge Date Admission Date: May 27, 2023 Subjective Attending: Dr. Mc This is an 83-year-old female from [facility] admitted yesterday with abdominal pain and 4 days of vomiting. She had minimal leukocytosis but did have suspected choledocholithiasis. MRCP is pending. GI is consulted. Labs reviewed this morning. Magnesium is low at 1.4. 2 g of magnesium sulfate have been ordered for infusion. Sodium is low at 130, potassium is trending downward at 3.4 GI was consulted and patient underwent ERCP earlier today. Choledocholithiasis was found and complete removal was accomplished and a plastic biliary stent was placed into the common bile duct. Patient seen postoperatively and tolerated the procedure well. Nausea and vomiting is resolved. Patient is requesting liquid diet. Denies fever, chills, sweats, rigors Review of Systems Review of Systems: A total of 10 systems was reviewed and is negative other than as listed in the HPI Physical Exam Physical Exam: GENERAL : No acute distress EYES: No icterus, gaze conjugate NOSE: No evidence of epistaxis MOUTH: No lesions or candidiasis NECK: Supple LUNGS: CTA B/L, no wheezes, rales or rhonchi HEART: Regular, rate controlled ABDOMEN: Soft, NT, ND, BS Present EXTREMITIES: No LE edema, pedal pulses intact NEURO: A&OX3. Weak on the left side. This is chronic according to the patient. Results & Data Results & Data Vital Signs (Past 12 Hours) Vital Signs Temp Pulse Resp BP Pulse Ox O2 Del Method 05/28/23 08:29 Room Air 05/28/23 07:19 37.0 C 67 16 126/60 94 Room Air Critical Care Results & Data Vital Signs (Past 12 Hours) Vital Signs Temp Pulse Resp BP Pulse Ox O2 Del Method 05/28/23 08:29 Room Air 05/28/23 07:19 37.0 C 67 16 126/60 94 Room Air Lab & Micro Results (Past 24 Hours) RBC 3.72 M/uL (4.20-5.40) L 05/28/23 WBC 8.88 K/ul (4.8-10.8) 05/28/23 Hgb 11.4 g/dl (12.0-16.0) L 05/28/23 Hct 32.3 % (37.0-47.0) L 05/28/23 MCV 86.8 fL (80.0-100.0) 05/28/23 MCH 30.6 pg (25.0-34.0) 05/28/23 MCHC 35.3 g/dL (32.0-36.0) 05/28/23 RDW Standard Deviation 39.9 fL (36.4-46.3) 05/28/23 RDW Coefficient of Variation 12.6 % (11.5-14.5) 05/28/23 Plt Count 240 K/uL (130-400) 05/28/23 MPV 9.3 fL (9.4-12.4) L 05/28/23 Neutrophils (%) (Auto) 82.4 % 05/28/23 Lymphocytes (%) (Auto) 5.1 % 05/28/23 Monocytes # (Auto) 1.02 K/uL (0.11-0.59) H 05/28/23 Eosinophils # (Auto) 0.03 K/uL (0-0.50) 05/28/23 Immature Granulocyte % (Auto) 0.5 % 05/28/23 Neutrophils # (Auto) 7.32 K/uL (1.40-6.50) H 05/28/23 Lymphocytes # (Auto) 0.45 K/uL (1.2-3.4) L 05/28/23 Monocytes # (Auto) 1.02 K/uL (0.11-0.59) H 05/28/23 Eosinophils # (Auto) 0.03 K/uL (0-0.50) 05/28/23 Basophils # (Auto) 0.02 K/uL (0-0.2) 05/28/23 Immature Granulocyte # (Auto) 0.04 K/uL (0.01-0.20) 3 Na 132 mmol/L (136-145) L 05/28/23 K 3.4 mmol/L (3.5-5.1) L 05/28/23 Cl 97 mmol/L (98-107) L 05/28/23 CO2 27 mmol/L (21-32) 05/28/23 Anion Gap 8 (3-11) 05/28/23 BUN 7 mg/dl (6-23) 05/28/23 Creatinine 0.57 mg/dl (0.6-1.2) L 05/28/23 Estimated GFR ( Amer) 100.8 ml/min 05/28/23 Estimated GFR (Non-Af Amer) 86.9 ml/min 05/28/23 BUN/Creatinine Ratio 12.3 (10-20) 05/28/23 Glu 159 mg/dl (70-99(Fasting)) H 05/28/23 Ca 9.0 mg/dl (8.6-10.3) 05/28/23 Total Bilirubin 2.0 mg/dl (0.2-1.0) H 05/28/23 AST 46 U/L (13-39) H 05/28/23 ALT 153 U/L (7-52) H 05/28/23 Alkaline Phosphatase 493 U/L (34-104) H 05/28/23 TP 6.4 gm/dl (6.0-8.3) 05/28/23 Albumin 3.7 gm/dl (3.4-5.0) 05/28/23 Globulin 2.7 gm/dl (2.5-4.0) 05/28/23 Albumin/Globulin Ratio 1.4 (0.9-2) 05/28/23 Mg 2.0 mg/dl (1.7-2.4) 05/28/23 18:15 Calcium Level 9.0 mg/dl (8.6-10.3) 05/28/23 18:15 Prothromb Time International Ratio 1.0 (0.9-1.1) 05/28/23 18:1 5 Diagnostic Findings (Past 24 Hours) Chest X-Ray 05/27/23 14:13 XR chest 1V portable CLINICAL HISTORY: Chest pain. COMPARISON STUDY: Chest CT September 06, 2020. Chest radiograph February 08, 2022. FINDINGS: Right shoulder arthroplasty is incidentally noted. There is no pneumothorax or pleural effusion. A hiatal hernia is present. Note is made of mild cardiomegaly without evidence for pulmonary edema. There is no consolidation to suggest pneumonia. A 1.7 cm irregular nodular density within the right upper lobe likely corresponds to the finding on chest CT of September 06, 2020. This has likely increased in size. IMPRESSION: 1. No acute cardiopulmonary findings. 2. Increase in size of a 1.7 cm irregular density within the right upper lobe which corresponds to the lesion on prior chest CT. This lesion may be within the adenocarcinoma spectrum. Follow-up nonemergent chest CT is recommended. ACT 112: Positive. There are findings on this exam that require communication between the performing entity and the patient following Patient Test Result Information Act ([place] Act 112) guidelines. Electronically signed by: Alxe Moon M.D. 05/27/2023 3:30 PM Gallbladder Ultrasound 05/27/23 15:19 US gallbladder CLINICAL HISTORY: Nausea and vomiting, elevated bilirubin COMPARISON STUDY: Right upper quadrant ultrasound June 21, 2020. FINDINGS: No hepatic lesions are identified. There has been interval development of moderate intra and extrahepatic biliary ductal dilatation since ultrasound of June 21, 2020. Common bile duct measures 1.1 cm in caliber. No common bile duct calculi are identified although these may be occult by sonography. Multiple gallstones within the gallbladder are noted. No sonographic Campos sign was elicited. The gallbladder is moderately distended. There is minimal gallbladder wall thickening. No pericholecystic fluid is present. Pancreatic body is normal. Head and tail are partially obscured. There is no right hydronephrosis. IMPRESSION: 1. Interval development of moderate intra and extrahepatic biliary ductal dilatation. Although no common bile duct calculi identified, these may be occult by sonography. If indicated, MRCP could be obtained. 2. Cholelithiasis with moderate gallbladder distention. No sonographic Campos sign. Therefore, the findings are not strongly suggestive of acute cholecystitis although a hepatobiliary scan could be obtained if indicated. ACT 112: Negative or not required by law. Electronically signed by: Alex Moon M.D. 05/27/2023 4:29 PM I & O Totals 24 Hours 05/27/23 05/28/23 05/29/23 06:59 06:59 06:59 Intake Total 2240 / 2240 Output Total 150 / 150 Balance 2089 / 2089 Cumulative 05/27/23 13:43 thru 05/28/23 06:12 Intake Total 2240 Output Total 150 Balance 2089 RT Ventilator Mngmt (Last Documented) Ventilator Ordered Settings Respiratory Rate 16 05/28/23 07:19 Ventilator - PT Measurements Respiratory Rate 16 PG Care Time/CCT Total # of Minutes Spent Total Time Spent with Patient: Total time spent is greater than 50% in coordination of care (as documented) at patient's floor/unit and/or counseling patient:35 minutes Coding Level of Care Code 68107 SUB INP/OBS CARE 2/35MIN Diagnoses Abdominal pain R10.9 Electrolyte imbalance E87.8 Transaminitis R74.01 Hemiparesis affecting left side as late effect of cerebrovascular accident I69.354 Hypertension I10 Hypertension type: primary hypertension Bicuspid aortic valve Q23.1 Time Spent (min) 35 (5) Hypertension Hypertension type: primary hypertension Qualified Code(s): I10 - Essential (primary) hypertension
--- NOTE | 2023-05-28 09:35 | Gastrointestinal Consultation ---
Date of Consultation May 28, 2023 Assessment & Plan (1) Abdominal pain: 83 year old female with history of abd pain, nausea/vomiting with elevated LFTs, ABD US and biliary dilation NPO Plan for EUS+/-ERCP Antiemetics PRN Analgesia PRN Trend LFTs We appreciate assistance in the management of any serological abnormality and corrections to include: hemoglobin >7, INR <2, platelets >50,000, potassium levels >3.5 but <5.3, and sodium levels within 5 points of the reference range prior to endoscopic evaluation. Thank you for allowing us to participate in the care of this patient. Please call with any acute changes, questions or concerns. Please see addendum below with additional recommendation from my supervising physician. Supervising Physician Co-Signing Physician Notes I performed a history and physical examination of the patient today, including specifically on physical exam - soft abdomen. I have discussed the patient's management with the advanced practitioner. Please refer to the nurse practitioner's note for the documented findings and plan of care. Likely choledocholithiasis EUS/ERCP today Patient was explained in detail regarding risks, benefits, limitations and alternatives of the above endoscopic procedure. Risks of intravenous sedation used for procedure were also explained. Risks include, but not limited to perforation, bleeding, infection, respiratory distress, cardiac arrest and . Patient is also aware about the possibility of missed lesion. Patient's questions were answered. The patient verbalized understanding the information and agreed to undergo the procedure. History of Present Illness Reason for Consultation: ?CBB stone Attending Physician: Molina Mc MD History of Present Illness 83 year old female with history of CVA w/ hemiplegia, breast CA, HTN and others below presenting with abd pain nausea/vomiting gi asked to eval for ?CBD stone. Pt otes that she has had nausea/vomiting x 1 week. Intermittent upper abd pain. No fevers. Some constipation. No report of black or bloody stools or emesis. No new medications No AC No NSAIDs Tbili 3 AST 60 ALT 161 ALKP 440 ABD US 2022: interval development of moderate intra and extrahepatic biliary ductal dilatation. Although no common bile duct calculi identified, these may be occult by sonography. If indicated, MRCP could be obtained. Cholelithiasis with moderate gallbladder distention. No sonographic Campos sign. Therefore, the findings are not strongly suggestive of acute cholecystitis although a hepatobiliary scan could be obtained if indicated. Allergies Allergy/AdvReac Type Severity Reaction Status Date / Time amlodipine Allergy Intermediate edema Verified 11/16/22 14:16 atorvastatin Allergy Intermediate joint pain Verified 11/16/22 14:16 lisinopril Allergy Intermediate cough Verified 11/16/22 14:16 buck Allergy Intermediate rash Verified 11/16/22 14:16 Penicillins Allergy Unknown ? RASH Verified 11/16/22 14:16 CHILD Home Medications Medication Instructions Recorded Confirmed Type cholecalciferol (vitamin D3) 50 2,000 unit PO QPM 04/18/19 05/27/23 History mcg (2,000 unit) tablet (Vitamin D3) multivitamin 1 tab PO DAILY 02/22/20 05/27/23 History omeprazole 40 mg capsule,delayed 20 mg PO DAILY 09/10/21 05/27/23 History release aspirin 81 mg tablet,delayed 81 mg PO DAILY 04/07/22 05/27/23 History release (Adult Low Dose Aspirin) diclofenac sodium 1 % topical gel 2 g topical QID PRN Pain 04/07/22 05/27/23 History losartan 100 mg tablet 100 mg PO DAILY 04/07/22 05/27/23 History sodium chloride 1 gram tablet 1,000 mg PO DAILY 04/07/22 05/27/23 History carvedilol 25 mg tablet 25 mg PO BID 07/20/22 05/27/23 History naproxen sodium [Aleve] 1 tab PO DAILY PRN Pain 07/20/22 05/27/23 History trazodone 50 mg tablet 50 mg PO DAILY 07/20/22 05/27/23 History amlodipine 2.5 mg tablet 2.5 mg PO DAILY 10/26/22 05/27/23 History pravastatin 20 mg tablet 20 mg PO Q OTHER DAY 10/26/22 05/27/23 History spironolactone 25 mg tablet 0 mg PO DAILY 10/26/22 11/16/22 History Patient History Medical History Acute left-sided muscle weakness Bicuspid aortic valve No on 12/06/17 echo. Mild-mod AI. Diverticular disease Fall H/O: CVA (cerebrovascular accident) Pt recalls symptoms ~1974 but not known stroke until noted on brain imaging a few years ago. Hiatal hernia History of anemia Hx of breast cancer RIGHT, S/P LUMPECTOMY, CHEMO AND RADIATION, 2016 Hyperlipidemia Hypertension Hypomagnesemia Intraductal carcinoma of right breast Lab test negative for COVID-19 virus PFO (patent foramen ovale) Pulmonary nodule MONITORED YEARLY WITH CT Stroke Torn rotator cuff RIGHT Surgical History History of bunionectomy of right great toe History of colonoscopy History of lumpectomy of right breast History of repair of hiatal hernia Hx of hysterectomy TOTAL Social History Smoking Status: Never smoker Second Hand Exposure: No; Do You Dip or Chew Tobacco: No; Hx Alcohol Use: Yes Alcohol type: wine Hx Substance Use: No Preferred Language: Lao Communication Ability: Effective Visual Impairment: No Limitations Application Integration Architect Required: No Beliefs That Will Affect Care: None marital status: / Current Living Situation: [facility] Feels Safe at Home: Yes Safety Concerns: Feels Safe At This Time Assistive Devices: Wheelchair Review of Systems Review of Systems: All systems reviewed & are unremarkable except as noted in HPI & below Physical Exam Constitutional: WD/WN, vitals as above Respiratory: normal respiratory effort, lungs clear to auscultation Cardiovascular: Rate/Rhythm: regular rate and regular rhythm Gastrointestinal (Abdomen): normal bowel sounds, soft, nontender, no hepatosplenomegaly Skin: no rashes, warm and dry Results & Data Vital Signs (Past 12 Hours) Vital Signs Temp Pulse Resp BP Pulse Ox O2 Del Method 05/28/23 08:29 Room Air 05/28/23 07:19 37.0 C 67 16 126/60 94 Room Air Laboratory Results 05/28/23 05/28/23 05/27/23 Range/Units 06:37 06:37 Unknown WBC 8.88 (4.8-10.8) K/ul RBC 3.72 L (4.20-5.40) M/uL Hgb 11.4 L (12.0-16.0) g/dl Hct 32.3 L (37.0-47.0) % MCV 86.8 (80.0-100.0) fL MCH 30.6 (25.0-34.0) pg MCHC 35.3 (32.0-36.0) g/dL RDW Std Deviation 39.9 (36.4-46.3) fL RDW Coeff of Reg 12.6 (11.5-14.5) % Plt Count 240 (130-400) K/uL MPV 9.3 L (9.4-12.4) fL Immature Gran % (Auto) 0.5 % Neut % (Auto) 82.4 % Lymph % (Auto) 5.1 % Gove % (Auto) 11.5 % Eos % (Auto) 0.3 % Baso % (Auto) 0.2 % Neut # (Auto) 7.32 H (1.40-6.50) K/uL Lymph # (Auto) 0.45 L (1.2-3.4) K/uL Gove # (Auto) 1.02 H (0.11-0.59) K/uL Eos # (Auto) 0.03 (0-0.50) K/uL Baso # (Auto) 0.02 (0-0.2) K/uL Immature Gran # (Auto) 0.04 (0.01-0.20) K/uL Sodium 130 L (136-145) mmol/L Potassium 3.4 L (3.5-5.1) mmol/L Chloride 97 L (98-107) mmol/L Carbon Dioxide 25 (21-32) mmol/L Anion Gap 8 (3-11) BUN 8 (6-23) mg/dl Creatinine 0.53 L (0.6-1.2) mg/dl Est Cr Clr Drug Dosing 74.9 ml/min Est GFR ( Amer) 103.2 ml/min Est GFR (Non-Af Amer) 89.0 ml/min BUN/Creatinine Ratio 15.1 (10-20) Glucose 117 H (70-99(Fasting)) mg/dl Calcium 8.6 (8.6-10.3) mg/dl Magnesium 1.4 L (1.7-2.4) mg/dl Total Bilirubin 3.0 H (0.2-1.0) mg/dl AST 60 H (13-39) U/L ALT 161 H (7-52) U/L Alkaline Phosphatase 440 H (34-104) U/L Troponin I High Sens (0-14) pg/ml Total Protein 5.2 L (6.0-8.3) gm/dl Albumin 3.1 L (3.4-5.0) gm/dl Globulin 2.1 L (2.5-4.0) gm/dl Albumin/Globulin Ratio 1.5 (0.9-2) Lipase (11-82) U/L Urine Color Dark Yellow Urine Appearance Clear (Clear) Urine pH 5.5 (4.5-7.5) Ur Specific [place] 1.021 (1.000-1.030) Urine Protein Negative (Negative) Urine Glucose (UA) Negative (Negative) Urine Ketones 3+ H (Negative) Urine Blood Negative (Negative) Urine Nitrite Positive A (Negative) Urine Bilirubin 1+ H (Negative) Urine Urobilinogen Positive H (Negative) Ur Leukocyte Esterase Negative (Negative) Urine WBC (Auto) 1-5 (0-5) /hpf Urine RBC (Auto) 5-10 H (0-4) /hpf U Hyaline Cast (Auto) 0 (0-5) /lpf U Epithel Cells (Auto) 10-20 H (0-5) /lpf Urine Bacteria (Auto) Negative (Negative) SARS-CoV-2, RNA, NAAT (NEGATIVE) 05/27/23 05/27/23 05/27/23 Range/Units 17:40 14:03 14:03 WBC 11.38 H (4.8-10.8) K/ul RBC 4.24 (4.20-5.40) M/uL Hgb 12.9 (12.0-16.0) g/dl Hct 38.0 (37.0-47.0) % MCV 89.6 (80.0-100.0) fL MCH 30.4 (25.0-34.0) pg MCHC 33.9 (32.0-36.0) g/dL RDW Std Deviation 41.5 (36.4-46.3) fL RDW Coeff of Reg 12.8 (11.5-14.5) % Plt Count 298 (130-400) K/uL MPV 9.3 L (9.4-12.4) fL Immature Gran % (Auto) 0.4 % Neut % (Auto) 87.5 % Lymph % (Auto) 4.7 % Gove % (Auto) 6.2 % Eos % (Auto) 0.8 % Baso % (Auto) 0.4 % Neut # (Auto) 9.96 H (1.40-6.50) K/uL Lymph # (Auto) 0.53 L (1.2-3.4) K/uL Gove # (Auto) 0.71 H (0.11-0.59) K/uL Eos # (Auto) 0.09 (0-0.50) K/uL Baso # (Auto) 0.05 (0-0.2) K/uL Immature Gran # (Auto) 0.04 (0.01-0.20) K/uL Sodium 133 L (136-145) mmol/L Potassium 4.0 (3.5-5.1) mmol/L Chloride 99 (98-107) mmol/L Carbon Dioxide 26 (21-32) mmol/L Anion Gap 8 (3-11) BUN 13 (6-23) mg/dl Creatinine 0.59 L (0.6-1.2) mg/dl Est Cr Clr Drug Dosing 64.8 ml/min Est GFR ( Amer) 99.6 ml/min Est GFR (Non-Af Amer) 86.0 ml/min BUN/Creatinine Ratio 22.0 H (10-20) Glucose 142 H (70-99(Fasting)) mg/dl Calcium 9.6 (8.6-10.3) mg/dl Magnesium (1.7-2.4) mg/dl Total Bilirubin 3.6 H D (0.2-1.0) mg/dl AST 78 H (13-39) U/L ALT 225 H (7-52) U/L Alkaline Phosphatase 547 H (34-104) U/L Troponin I High Sens 7.8 (0-14) pg/ml Total Protein 6.5 (6.0-8.3) gm/dl Albumin 3.8 (3.4-5.0) gm/dl Globulin 2.7 (2.5-4.0) gm/dl Albumin/Globulin Ratio 1.4 (0.9-2) Lipase 22 (11-82) U/L Urine Color Urine Appearance (Clear) Urine pH (4.5-7.5) Ur Specific [place] (1.000-1.030) Urine Protein (Negative) Urine Glucose (UA) (Negative) Urine Ketones (Negative) Urine Blood (Negative) Urine Nitrite (Negative) Urine Bilirubin (Negative) Urine Urobilinogen (Negative) Ur Leukocyte Esterase (Negative) Urine WBC (Auto) (0-5) /hpf Urine RBC (Auto) (0-4) /hpf U Hyaline Cast (Auto) (0-5) /lpf U Epithel Cells (Auto) (0-5) /lpf Urine Bacteria (Auto) (Negative) SARS-CoV-2, RNA, NAAT NEGATIVE (NEGATIVE)
[2023-05-28] MEDS: MAGNESIUM SULFATE / D5W 1 GM/100 ML BAG IV SCH ×2 (09:45→11:19)
[2023-05-28] MEDS ORDERED: MAGNESIUM SULFATE / D5W 1 GM/100 ML BAG IV SCH (10:30)
[2023-05-28] MEDS ORDERED: POTASSIUM CHLORIDE / WTR 10 MEQ/100 ML PLCT IV SCH (10:45)
--- NOTE | 2023-05-28 11:59 | Electrocardiogram Report ---
Test Reason : Blood Pressure : / mmHG Vent. Rate : 084 BPM Atrial Rate : 084 BPM P-R Int : 202 ms QRS Dur : 066 ms QT Int : 386 ms P-R-T Axes : -23 004 028 degrees QTc Int : 456 ms Normal sinus rhythm Normal ECG When compared with ECG of 08-FEB-2022 23:16, No significant change Confirmed by Jaya Hicks ([id number]) on 05/28/2023 11:59:02 AM Referred By: Ani Hurley Confirmed By:Jaya Hicks
--- NOTE | 2023-05-28 12:16 | Electrocardiogram Report ---
Test Reason : Blood Pressure : / mmHG Vent. Rate : 077 BPM Atrial Rate : 077 BPM P-R Int : 194 ms QRS Dur : 058 ms QT Int : 380 ms P-R-T Axes : -04 006 038 degrees QTc Int : 430 ms Normal sinus rhythm Poor R wave progression, consider anterior IA vs. lead placement vs. LVH Abnormal ECG When compared with ECG of 08-FEB-2022 23:16, PRWP now present Confirmed by Jaya Hicks ([id number]) on 05/28/2023 12:16:35 PM Referred By: Ani Hurley Confirmed By:Jaya Hicks
--- NOTE | 2023-05-28 12:23 | Anesthesiology Consultation ---
Date of Service May 28, 2023 Assessment & Plan (1) Encounter for pre-operative examination: Chart Review Chart Review: Acceptable Risk for Surgery and Patient NOT seen in Pre Admission Testing History Surgery Operation Date: 05/28/23 08:25 Proposed Procedures p Endoscopic Ultrasonography Upper - Lisa Hernandez MD s Endoscopic Retrograde Cholangiopancreato - Lisa Hernandez MD Height/Weight Height: 5 ft 5 in Weight: 65.6 kg Allergies Allergy/AdvReac Type Severity Reaction Status Date / Time amlodipine Allergy Intermediate edema Verified 11/16/22 14:16 atorvastatin Allergy Intermediate joint pain Verified 11/16/22 14:16 lisinopril Allergy Intermediate cough Verified 11/16/22 14:16 buck Allergy Intermediate rash Verified 11/16/22 14:16 Penicillins Allergy Unknown ? RASH Verified 11/16/22 14:16 CHILD Medications Home Medications Medication Instructions Recorded Confirmed Last Taken cholecalciferol (vitamin D3) 50 2,000 unit PO QPM 04/18/19 05/27/23 02/07/22 mcg (2,000 unit) tablet (Vitamin D3) multivitamin 1 tab PO DAILY 02/22/20 05/27/23 02/08/22 omeprazole 40 mg capsule,delayed 20 mg PO DAILY 09/10/21 05/27/23 02/08/22 release aspirin 81 mg tablet,delayed 81 mg PO DAILY 04/07/22 05/27/23 Unknown release (Adult Low Dose Aspirin) diclofenac sodium 1 % topical gel 2 g topical QID PRN Pain 04/07/22 05/27/23 Unknown losartan 100 mg tablet 100 mg PO DAILY 04/07/22 05/27/23 Unknown sodium chloride 1 gram tablet 1,000 mg PO DAILY 04/07/22 05/27/23 Unknown carvedilol 25 mg tablet 25 mg PO BID 07/20/22 05/27/23 Unknown naproxen sodium [Aleve] 1 tab PO DAILY PRN Pain 07/20/22 05/27/23 Unknown trazodone 50 mg tablet 50 mg PO DAILY 07/20/22 05/27/23 Unknown amlodipine 2.5 mg tablet 2.5 mg PO DAILY 10/26/22 05/27/23 Unknown pravastatin 20 mg tablet 20 mg PO Q OTHER DAY 10/26/22 05/27/23 2 Days Ago ~05/25/23 spironolactone 25 mg tablet 0 mg PO DAILY 10/26/22 11/16/22 Unknown Active Medications Generic Name Dose Route Start Last Admin Trade Name Shelli CURRAN Reason Stop Dose Admin Amlodipine Besylate 2.5 mg 05/28/23 09:00 05/28/23 08:34 Amlodipine Besylate 5 Mg Tab PO 06/27/23 08:59 Not Given DAILY MANUEL Carvedilol 25 mg 05/28/23 08:00 05/28/23 08:34 Carvedilol 25 Mg Tab PO 06/27/23 07:59 Not Given BIDM MANUEL Piperacillin Sod/Tazobactam 120 mls @ 30 mls/hr 05/28/23 02:00 05/28/23 09:45 Sod 4.5 gm/ Dextrose IV 05/30/23 01:59 30 mls/hr Q8H MANUEL Administration Protocol Parenteral Electrolytes 1,000 mls @ 100 mls/hr 05/27/23 18:45 05/28/23 05:37 Plasma-Lyte A Ph 7.4 IV 06/26/23 18:44 100 mls/hr .Q10H MANUEL Administration Magnesium Sulfate/Dextrose 1 gm in 100 mls @ 50 mls/hr 05/28/23 09:30 05/28/23 11:19 Magnesium Sulfate / D5w IV 05/28/23 13:29 50 mls/hr Q2H MANUEL Administration Pantoprazole Sodium 40 mg 05/28/23 09:00 05/28/23 08:34 Pantoprazole 40 Mg Tab PO 06/27/23 08:59 Not Given DAILY MANUEL Pravastatin Sodium 20 mg 05/27/23 22:00 05/27/23 22:02 Pravastatin Sod 20 Mg Tab PO 06/26/23 21:59 20 mg Q2D@2100 MANUEL Administration Sodium Chloride 1 gm 05/28/23 09:00 05/28/23 08:34 Sodium Chloride 1 Gm Tablet PO 06/27/23 08:59 Not Given DAILY MANUEL Spironolactone 25 mg 05/28/23 09:00 05/28/23 08:34 Spironolactone 25 Mg Tab PO 06/27/23 08:59 Not Given DAILY MANUEL Trazodone HCl 100 mg 05/27/23 22:00 05/27/23 22:02 Trazodone Hcl 100 Mg Tab PO 06/26/23 21:59 100 mg HS MANUEL Administration Past Medical History Medical History Acute left-sided muscle weakness Bicuspid aortic valve No on 12/06/17 echo. Mild-mod AI. Diverticular disease Fall H/O: CVA (cerebrovascular accident) Pt recalls symptoms ~1974 but not known stroke until noted on brain imaging a few years ago. Hiatal hernia History of anemia Hx of breast cancer RIGHT, S/P LUMPECTOMY, CHEMO AND RADIATION, 2016 Hyperlipidemia Hypertension Hypomagnesemia Intraductal carcinoma of right breast Lab test negative for COVID-19 virus PFO (patent foramen ovale) Pulmonary nodule MONITORED YEARLY WITH CT Stroke Torn rotator cuff RIGHT Past Surgical History Surgical History History of bunionectomy of right great toe History of colonoscopy History of lumpectomy of right breast History of repair of hiatal hernia Hx of hysterectomy TOTAL Social History Smoking Status: Never smoker tobacco type: cigarettes Do You Dip or Chew Tobacco: No Hx Alcohol Use: Yes Alcohol type: wine alcohol intake frequency: holidays/special occasions only Hx Substance Use: No Physical Exam Vital Signs Last Vital Signs Temp 37.0 C 05/28/23 07:19 Pulse 67 05/28/23 07:19 Resp 16 05/28/23 07:19 BP 126/60 05/28/23 07:19 Pulse Ox 94 05/28/23 07:19 O2 Del Method Room Air 05/28/23 08:29 Testing Laboratory Results 05/28/23 06:37 05/28/23 06:37 Urine Color Dark Yellow 05/27/23 Unknown Urine Appearance Clear (Clear) 05/27/23 Unknown Urine pH 5.5 (4.5-7.5) 05/27/23 Unknown Ur Specific [place] 1.021 (1.000-1.030) 05/27/23 Unknown Urine Protein Negative (Negative) 05/27/23 Unknown Urine Glucose (UA) Negative (Negative) 05/27/23 Unknown Urine Ketones 3+ (Negative) H 05/27/23 Unknown Urine Nitrite Positive (Negative) A 05/27/23 Unknown Ur Leukocyte Esterase Negative (Negative) 05/27/23 Unknown Urine WBC (Auto) 1-5 /hpf (0-5) 05/27/23 Unknown Urine RBC (Auto) 5-10 /hpf (0-4) H 05/27/23 Unknown U Hyaline Cast (Auto) 0 /lpf (0-5) 05/27/23 Unknown U Epithel Cells (Auto) 10-20 /lpf (0-5) H 05/27/23 Unknown Urine Bacteria (Auto) Negative (Negative) 05/27/23 Unknown Electrocardiogram Date: 05/27/23 Normal sinus rhythm Normal ECG When compared with ECG of 08-FEB-2022 23:16, No significant change Confirmed by Jaya Hicks ([id number]) on 05/28/2023 11:59:02 AM
[2023-05-28] MEDS ORDERED: ONDANSETRON INJ 2 MG/ML 2 ML VIAL IV PRN ×2 (12:24→13:47)
[2023-05-28] MEDS ORDERED: fentaNYL citrate PF 100 MCG/2 ML VIAL IV PRN ×2 (12:24→13:47)
[2023-05-28] MEDS ORDERED: ATROPINE SULFATE 0.1 MG/ML 10ML SYR IV PRN ×2 (12:24→13:47)
[2023-05-28] MEDS ORDERED: ePHEDrine sulfate 50 MG/ML AMP IV PRN ×2 (12:24→13:47)
[2023-05-28] MEDS ORDERED: PROPOFOL IV EMULSION 10 MG/ML 20 ML VIAL IV ONE ×2 (14:04→15:01)
[2023-05-28] MEDS ORDERED: GLYCOPYRROLATE 0.2 MG/ML VIAL ONE (14:04)
[2023-05-28] MEDS ORDERED: LIDOCAINE 2% 2 ML VIAL/AMP(20MG/ML) INFIL ONE (14:04)
[2023-05-28] MEDS ORDERED: fentaNYL citrate PF 100 MCG/2 ML VIAL ONE (14:30)
--- NOTE | 2023-05-28 15:14 | Operative Report ---
Post Operative Report Pre & Post Diagnosis Operation Date: 05/28/23 08:25 Pre-Op Diagnosis: CHOLED[place]O Post-Op Diagnosis: Stomach polyp Gall stones I identified the patient and participated in the time-out.: Yes Procedure Operation Date: 05/28/23 08:25 Actual Procedures p EGD Biopsy Cytology - Lisa Hernandez MD p Endoscopic Ultrasonography Upper - Lisa Hernandez MD s Endoscopic Retrograde Cholangiopancreato - Lisa Hernandez MD Surgeon Lisa Hernandez MD Folder Machine Adjuster None Estimated Blood Loss 0 Findings See Below (CBD stone removed) Specimens Gastric polyp Description of Procedure EUS/ERCP I attest to the content of the Intraoperative Record and any orders documented therein. Any exceptions are noted below.
--- NOTE | 2023-05-28 15:28 | GI REPORT ---
Patient Name: Anastasia Sepulveda Procedure Date: 05/28/2023 2:03 PM Date of : 1940 Admit Type: Inpatient Age: 83 Gender: Female Attending MD: Lisa Hernandez MD, Procedure: Upper GI endoscopy Providers: Lisa Hernandez MD Referring MD: Molina Mc Indications: Epigastric abdominal pain Medicines: Propofol per Anesthesia Complications: No immediate complications. Estimated Blood Loss: Estimated blood loss: none. Procedure: Pre-Anesthesia Assessment: - Prior to the procedure, a History and Physical was performed, and patient medications, allergies and sensitivities were reviewed. The patient's tolerance of previous anesthesia was reviewed. - The risks and benefits of the procedure and the sedation options and risks were discussed with the patient. All questions were answered and informed consent was obtained. - Patient identification and proposed procedure were verified prior to the procedure by the physician and the nurse. The procedure was verified in the procedure room. - Pre-procedure physical examination revealed no contraindications to sedation. After obtaining informed consent, the endoscope was passed under direct vision. Throughout the procedure, the patient's blood pressure, pulse, and oxygen saturations were monitored continuously. The Endoscope was introduced through the mouth, and advanced to the second part of duodenum. The upper GI endoscopy was accomplished without difficulty. The patient tolerated the procedure well. Findings: The examined esophagus was normal. A single 20 mm semi-pedunculated polyp with no stigmata of recent bleeding was found at the incisura. The polyp was removed with a saline injection-lift technique using a hot snare. Resection and retrieval were complete. Verification of patient identification for the specimen was done by the physician and nurse using the patient's name and date. To prevent bleeding after the polypectomy, four hemostatic clips were successfully placed (MR conditional). Clip strategic planning director: [employer]. The duodenal bulb and second portion of the duodenum were normal. Impression: - Normal esophagus. - A single gastric polyp. Resected and retrieved. Clips (MR conditional) were placed. - Normal duodenal bulb and second portion of the duodenum. Recommendation: - Await pathology results. - Perform an upper endoscopic ultrasound (UEUS). - PO PPI BID for 2 months. Lisa Hernandez MD 05/28/2023 3:26:32 PM Note Initiated On: 05/28/2023 2:03 PM Number of Addenda: 0 I attest to the content of the Intraoperative Record and orders documented therein, exceptions below {[id number]}
--- NOTE | 2023-05-28 15:30 | GI REPORT ---
Patient Name: Anastasia Sepulveda Procedure Date: 05/28/2023 2:03 PM Date of : 1940 Admit Type: Inpatient Age: 83 Gender: Female Attending MD: Lisa Hernandez MD, Procedure: Upper EUS Providers: Lisa Hernandez MD Referring MD: Molina Martinez Indications: Elevated liver enzymes, Suspected choledocholithiasis Medicines: Propofol per Anesthesia Complications: No immediate complications. Estimated Blood Loss: Estimated blood loss: none. Procedure: Pre-Anesthesia Assessment: - Prior to the procedure, a History and Physical was performed, and patient medications, allergies and sensitivities were reviewed. The patient's tolerance of previous anesthesia was reviewed. - The risks and benefits of the procedure and the sedation options and risks were discussed with the patient. All questions were answered and informed consent was obtained. - Patient identification and proposed procedure were verified prior to the procedure by the physician and the nurse. The procedure was verified in the procedure room. - Pre-procedure physical examination revealed no contraindications to sedation. After obtaining informed consent, the endoscope was passed under direct vision. Throughout the procedure, the patient's blood pressure, pulse, and oxygen saturations were monitored continuously. The Endosonoscope was introduced through the mouth, and advanced to the second part of duodenum. The upper EUS was accomplished without difficulty. The patient tolerated the procedure well. Findings: ENDOSONOGRAPHIC FINDING: : There was no sign of significant endosonographic abnormality in the ampulla. Many stones were visualized endosonographically in the common bile duct. They were hyperechoic and characterized by shadowing. Many stones were visualized endosonographically in the gallbladder. They were hyperechoic and characterized by shadowing. There was no sign of significant endosonographic abnormality in the visualized portion of the liver. Homogeneous parenchyma was identified. There was no sign of significant endosonographic abnormality in the entire pancreas. The pancreatic duct measured up to 2 mm in diameter. Impression: - There was no sign of significant pathology in the ampulla. - Many stones were visualized endosonographically in the common bile duct. - Many stones were visualized endosonographically in the gallbladder. - There was no evidence of significant pathology in the visualized portion of the liver. - There was no sign of significant pathology in the entire pancreas. Recommendation: - Perform an ERCP. Lisa Hernandez MD 05/28/2023 3:29:33 PM This report has been signed electronically. Note Initiated On: 05/28/2023 2:03 PM Number of Addenda: 0 I attest to the content of the Intraoperative Record and orders documented therein, exceptions below {[id number]}
--- NOTE | 2023-05-28 15:33 | Fluoroscopy Report ---
[place] ERCP biliary ductal CLINICAL HISTORY: ERCP COMPARISON STUDY: Right upper quadrant ultrasound May 27, 2023. FLUOROSCOPY TIME: 40.9 seconds. Ka, r: 15.99 mGy FLUOROSCOPIC IMAGES: 9 FINDINGS: Fluoroscopy was provided during ERCP. Common bile duct was cannulated. Balloon sweep throug h the common bile duct was performed with placement of a CBD stent. The stent is well-positioned. IMPRESSION: Fluoroscopy provided during ERCP with balloon sweep through the common bile duct and bonnie cement of the CBD stone. ACT 112: Negative or not required by law. Electronically signed by: Alex Moon M.D. 05/28/2023 3:32 PM
--- NOTE | 2023-05-28 15:33 | GI REPORT ---
Patient Name: Anastasia Sepulveda Procedure Date: 05/28/2023 2:04 PM Date of : 1940 Admit Type: Inpatient Age: 83 Gender: Female Attending MD: Lisa Hernandez MD, Procedure: ERCP Providers: Lisa Hernandez MD Referring MD: Molina Martinez Indications: For therapy of bile duct stone(s) Medicines: Propofol per Anesthesia Complications: No immediate complications. Estimated Blood Loss: Estimated blood loss: none. Procedure: Pre-Anesthesia Assessment: - Prior to the procedure, a History and Physical was performed, and patient medications, allergies and sensitivities were reviewed. The patient's tolerance of previous anesthesia was reviewed. - The risks and benefits of the procedure and the sedation options and risks were discussed with the patient. All questions were answered and informed consent was obtained. - Patient identification and proposed procedure were verified prior to the procedure by the physician and the nurse. The procedure was verified in the procedure room. - Pre-procedure physical examination revealed no contraindications to sedation. After obtaining informed consent, the scope was passed under direct vision. Throughout the procedure, the patient's blood pressure, pulse, and oxygen saturations were monitored continuously. The Duodenoscope was introduced through the mouth, and advanced to the duodenum and used to inject contrast into the bile duct. The ERCP was accomplished without difficulty. The patient tolerated the procedure well. Findings: The drum sprayer film was normal. The esophagus was successfully intubated under direct vision. The scope was advanced to a normal major papilla in the descending duodenum without detailed examination of the pharynx, larynx and associated structures, and upper GI tract. The upper GI tract was grossly normal. A 0.035 inch straight standard wire was passed into the biliary tree. The short-nosed traction sphincterotome was passed over the guidewire and the bile duct was then deeply cannulated. Contrast was injected. I personally interpreted the bile duct images. Ductal flow of contrast was adequate. Image quality was adequate. Contrast extended to the main bile duct. Opacification of the entire biliary tree was successful. The maximum diameter of the ducts was 10 mm. Biliary sphincterotomy was made with a monofilament traction (standard) sphincterotome using ERBE electrocautery. There was no post-sphincterotomy bleeding. Dilation of the common bile duct with an 8 mm balloon dilator was successful. The biliary tree was swept with a 12 mm balloon starting at the bifurcation. Sludge was swept from the duct. A few stones were removed. No stones remained. One 7 Fr by 7 cm plastic biliary stent with a single external pigtail and a single internal pigtail was placed into the common bile duct. Bile flowed through the stent. The stent was in good position. Impression: - Choledocholithiasis was found. Complete removal was accomplished by biliary sphincterotomy and balloon extraction. - One plastic biliary stent was placed into the common bile duct. Recommendation: - Return patient to hospital [facility] for ongoing care. - Repeat ERCP in 3 months to remove stent. - Follow up with surgery for cholecystectomy. Lisa Hernandez MD 05/28/2023 3:32:20 PM This report has been signed electronically. Note Initiated On: 05/28/2023 2:04 PM Number of Addenda: 0 I attest to the content of the Intraoperative Record and orders documented therein, exceptions below {[id number]}
--- NOTE | 2023-05-28 16:00 | Anesthesiology Progress Note ---
Date of Service May 28, 2023 Anesthesia Post Procedure Vital Signs Vital Signs: Temp Pulse Pulse Resp BP Pulse Ox O2 Del Method 05/28/23 15:40 77 20 140/74 98 Room Air 05/28/23 15:50 68 18 142/79 H 96 Room Air 05/28/23 15:30 76 18 136/72 98 Oxymask 05/28/23 15:25 36.3 C L 94 H 17 127/67 99 Oxymask 05/28/23 13:24 36.8 C 68 20 148/66 H 97 Room Air 05/28/23 08:29 Room Air 05/28/23 07:19 37.0 C 67 16 126/60 94 Room Air 05/27/23 20:30 Room Air 05/27/23 20:30 36.9 C 73 16 138/80 96 Room Air 05/27/23 18:00 82 18 139/74 96 Room Air O2 Flow Rate 05/28/23 15:40 05/28/23 15:50 05/28/23 15:30 6 05/28/23 15:25 6 05/28/23 13:24 05/28/23 08:29 05/28/23 07:19 05/27/23 20:30 05/27/23 20:30 05/27/23 18:00 Pain Intensity Upper Abdomen: Pain Intensity: 5 Transfer of Care Handoff Completed per policy Notes Mental Status: alert / awake / arousable and participated in evaluation Patient Amnestic to Procedure: Yes Nausea / Vomiting: adequately controlled Pain: adequately controlled Airway Patency, RR, SpO2: stable & adequate BP & HR: stable & adequate Hydration State: stable & adequate Anesthetic Complications: no major complications apparent and Pt Satisfied with anesthetic care
--- NOTE | 2023-05-28 17:37 | Surgery Consultation ---
Date of Consultation May 28, 2023 Assessment & Plan (1) Abdominal pain: (2) Transaminitis: (3) Choledocholithiasis: Plan 83-year-old woman who presents with choledocholithiasis. She is now status post ERCP with stent placement and removal of stones from the common bile duct. Ultr asound demonstrated gallstones but no evidence of acute cholecystitis. I discussed with her the risks and benefits of a laparoscopic cholecystectomy. All her questions were answered, and she is agreeable to proceed. We will keep her n.p.o. after midnight tonight. We will check her labs tomorrow morning. As long as her LFTs are decreasing, we will proceed with laparoscopic cholecystectomy. She is agreeable with this plan. History of Present Illness Reason for Consultation: choledocholithiasis Requesting Physician: Molina Mc MD Attending Physician: Molina Mc MD History of Present Illness 83-year-old woman presents to the hospital with choledocholithiasis. She presented with right upper quadrant pain and nausea. She is now status post ERC P with stent placement and removal of multiple stones. She states the pain has resolved. She states she has had multiple episodes of pain in the right upper quadrant. She denies fevers or chills. Ultrasound did demonstrate thickened gallbladder wall but no evidence of acute cholecystitis. She has had a prior laparoscopic Lakia fundoplication and hiatal hernia repair. White count is normal. Allergies Allergy/AdvReac Type Severity Reaction Status Date / Time amlodipine Allergy Intermediate edema Verified 11/16/22 14:16 atorvastatin Allergy Intermediate joint pain Verified 11/16/22 14:16 lisinopril Allergy Intermediate cough Verified 11/16/22 14:16 buck Allergy Intermediate rash Verified 11/16/22 14:16 Penicillins Allergy Unknown ? RASH Verified 11/16/22 14:16 CHILD Home Medications Medication Instructions Recorded Confirmed Type cholecalciferol (vitamin D3) 50 2,000 unit PO QPM 04/18/19 05/27/23 History mcg (2,000 unit) tablet (Vitamin D3) multivitamin 1 tab PO DAILY 02/22/20 05/27/23 History omeprazole 40 mg capsule,delayed 20 mg PO DAILY 09/10/21 05/27/23 History release aspirin 81 mg tablet,delayed 81 mg PO DAILY 04/07/22 05/27/23 History release (Adult Low Dose Aspirin) diclofenac sodium 1 % topical gel 2 g topical QID PRN Pain 04/07/22 05/27/23 History losartan 100 mg tablet 100 mg PO DAILY 04/07/22 05/27/23 History sodium chloride 1 gram tablet 1,000 mg PO DAILY 04/07/22 05/27/23 History carvedilol 25 mg tablet 25 mg PO BID 07/20/22 05/27/23 History naproxen sodium [Aleve] 1 tab PO DAILY PRN Pain 07/20/22 05/27/23 History trazodone 50 mg tablet 50 mg PO DAILY 07/20/22 05/27/23 History amlodipine 2.5 mg tablet 2.5 mg PO DAILY 10/26/22 05/27/23 History pravastatin 20 mg tablet 20 mg PO Q OTHER DAY 10/26/22 05/27/23 History spironolactone 25 mg tablet 0 mg PO DAILY 10/26/22 11/16/22 History Patient History Medical History Acute left-sided muscle weakness Bicuspid aortic valve No on 12/06/17 echo. Mild-mod AI. Diverticular disease Fall H/O: CVA (cerebrovascular accident) Pt recalls symptoms ~1974 but not known stroke until noted on brain imaging a few years ago. Hiatal hernia History of anemia Hx of breast cancer RIGHT, S/P LUMPECTOMY, CHEMO AND RADIATION, 2015 Hyperlipidemia Hypertension Hypomagnesemia Intraductal carcinoma of right breast Lab test negative for COVID-19 virus PFO (patent foramen ovale) Pulmonary nodule MONITORED YEARLY WITH CT Stroke Torn rotator cuff RIGHT Surgical History History of bunionectomy of right great toe History of colonoscopy History of lumpectomy of right breast History of repair of hiatal hernia Hx of hysterectomy TOTAL Social History Smoking Status: Never smoker Second Hand Exposure: No; Do You Dip or Chew Tobacco: No; Hx Alcohol Use: Yes Alcohol type: wine Hx Substance Use: No Preferred Language: Tanzanian Communication Ability: Effective Visual Impairment: No Limitations Utility Person Required: No Beliefs That Will Affect Care: None marital status: / Current Living Situation: Group Home Feels Safe at Home: Yes Safety Concerns: Feels Safe At This Time Assistive Devices: Glasses, Walker and Wheelchair Review of Systems Review of Systems: All systems reviewed & are unremarkable except as noted in HPI & below Physical Exam Constitutional: WD/WN, vitals as above Eyes: PERRL, conjunctivae normal, anicteric sclerae Neck: trachea midline, no thyromegaly Respiratory: normal respiratory effort; no respiratory distress and no labored breathing Cardiovascular: Rate/Rhythm: regular rate and regular rhythm Gastrointestinal (Abdomen): Inspection/Auscultation: abdomen normal to inspection; abdomen not distended Percussion/Palpation: abdomen soft; abdomen nontender, no guarding and abdomen not rigid Skin: no rashes, warm and dry Psychiatric: A+Ox3, euthymic affect Results & Data Vital Signs (Past 12 Hours) Vital Signs Temp Pulse Pulse Resp BP Pulse Ox O2 Del Method 05/28/23 16:35 36.6 C 67 16 146/76 H 95 Room Air 05/28/23 16:15 36.9 C 69 20 149/73 H 96 Room Air 05/28/23 15:40 77 20 140/74 98 Room Air 05/28/23 15:50 68 18 142/79 H 96 Room Air 05/28/23 15:30 76 18 136/72 98 Oxymask 05/28/23 15:25 36.3 C L 94 H 17 127/67 99 Oxymask 05/28/23 13:24 36.8 C 68 20 148/66 H 97 Room Air 05/28/23 08:29 Room Air 05/28/23 07:19 37.0 C 67 16 126/60 94 Room Air O2 Flow Rate 05/28/23 16:35 05/28/23 16:15 05/28/23 15:40 05/28/23 15:50 05/28/23 15:30 6 05/28/23 15:25 6 05/28/23 13:24 05/28/23 08:29 05/28/23 07:19 Laboratory Results 05/28/23 05/28/23 05/27/23 Range/Units 06:37 06:37 Unknown WBC 8.88 (4.8-10.8) K/ul RBC 3.72 L (4.20-5.40) M/uL Hgb 11.4 L (12.0-16.0) g/dl Hct 32.3 L (37.0-47.0) % MCV 86.8 (80.0-100.0) fL MCH 30.6 (25.0-34.0) pg MCHC 35.3 (32.0-36.0) g/dL RDW Std Deviation 39.9 (36.4-46.3) fL RDW Coeff of Reg 12.6 (11.5-14.5) % Plt Count 240 (130-400) K/uL MPV 9.3 L (9.4-12.4) fL Immature Gran % (Auto) 0.5 % Neut % (Auto) 82.4 % Lymph % (Auto) 5.1 % [place] % (Auto) 11.5 % Eos % (Auto) 0.3 % Baso % (Auto) 0.2 % Neut # (Auto) 7.32 H (1.40-6.50) K/uL Lymph # (Auto) 0.45 L (1.2-3.4) K/uL [place] # (Auto) 1.02 H (0.11-0.59) K/uL Eos # (Auto) 0.03 (0-0.50) K/uL Baso # (Auto) 0.02 (0-0.2) K/uL Immature Gran # (Auto) 0.04 (0.01-0.20) K/uL Sodium 130 L (136-145) mmol/L Potassium 3.4 L (3.5-5.1) mmol/L Chloride 97 L (98-107) mmol/L Carbon Dioxide 25 (21-32) mmol/L Anion Gap 8 (3-11) BUN 8 (6-23) mg/dl Creatinine 0.53 L (0.6-1.2) mg/dl Est Cr Clr Drug Dosing 74.9 ml/min Est GFR ( Amer) 103.2 ml/min Est GFR (Non-Af Amer) 89.0 ml/min BUN/Creatinine Ratio 15.1 (10-20) Glucose 117 H (70-99(Fasting)) mg/dl Calcium 8.6 (8.6-10.3) mg/dl Magnesium 1.4 L (1.7-2.4) mg/dl Total Bilirubin 3.0 H (0.2-1.0) mg/dl AST 60 H (13-39) U/L ALT 161 H (7-52) U/L Alkaline Phosphatase 440 H (34-104) U/L Total Protein 5.2 L (6.0-8.3) gm/dl Albumin 3.1 L (3.4-5.0) gm/dl Globulin 2.1 L (2.5-4.0) gm/dl Albumin/Globulin Ratio 1.5 (0.9-2) Urine Color Dark Yellow Urine Appearance Clear (Clear) Urine pH 5.5 (4.5-7.5) Ur Specific [place] 1.021 (1.000-1.030) Urine Protein Negative (Negative) Urine Glucose (UA) Negative (Negative) Urine Ketones 3+ H (Negative) Urine Blood Negative (Negative) Urine Nitrite Positive A (Negative) Urine Bilirubin 1+ H (Negative) Urine Urobilinogen Positive H (Negative) Ur Leukocyte Esterase Negative (Negative) Urine WBC (Auto) 1-5 (0-5) /hpf Urine RBC (Auto) 5-10 H (0-4) /hpf U Hyaline Cast (Auto) 0 (0-5) /lpf U Epithel Cells (Auto) 10-20 H (0-5) /lpf Urine Bacteria (Auto) Negative (Negative) SARS-CoV-2, RNA, NAAT (NEGATIVE) 05/27/23 Range/Units 17:40 WBC (4.8-10.8) K/ul RBC (4.20-5.40) M/uL Hgb (12.0-16.0) g/dl Hct (37.0-47.0) % MCV (80.0-100.0) fL MCH (25.0-34.0) pg MCHC (32.0-36.0) g/dL RDW Std Deviation (36.4-46.3) fL RDW Coeff of Reg (11.5-14.5) % Plt Count (130-400) K/uL MPV (9.4-12.4) fL Immature Gran % (Auto) % Neut % (Auto) % Lymph % (Auto) % [place] % (Auto) % Eos % (Auto) % Baso % (Auto) % Neut # (Auto) (1.40-6.50) K/uL Lymph # (Auto) (1.2-3.4) K/uL [place] # (Auto) (0.11-0.59) K/uL Eos # (Auto) (0-0.50) K/uL Baso # (Auto) (0-0.2) K/uL Immature Gran # (Auto) (0.01-0.20) K/uL Sodium (136-145) mmol/L Potassium (3.5-5.1) mmol/L Chloride (98-107) mmol/L Carbon Dioxide (21-32) mmol/L Anion Gap (3-11) BUN (6-23) mg/dl Creatinine (0.6-1.2) mg/dl Est Cr Clr Drug Dosing ml/min Est GFR ( Amer) ml/min Est GFR (Non-Af Amer) ml/min BUN/Creatinine Ratio (10-20) Glucose (70-99(Fasting)) mg/dl Calcium (8.6-10.3) mg/dl Magnesium (1.7-2.4) mg/dl Total Bilirubin (0.2-1.0) mg/dl AST (13-39) U/L ALT (7-52) U/L Alkaline Phosphatase (34-104) U/L Total Protein (6.0-8.3) gm/dl Albumin (3.4-5.0) gm/dl Globulin (2.5-4.0) gm/dl Albumin/Globulin Ratio (0.9-2) Urine Color Urine Appearance (Clear) Urine pH (4.5-7.5) Ur Specific [place] (1.000-1.030) Urine Protein (Negative) Urine Glucose (UA) (Negative) Urine Ketones (Negative) Urine Blood (Negative) Urine Nitrite (Negative) Urine Bilirubin (Negative) Urine Urobilinogen (Negative) Ur Leukocyte Esterase (Negative) Urine WBC (Auto) (0-5) /hpf Urine RBC (Auto) (0-4) /hpf U Hyaline Cast (Auto) (0-5) /lpf U Epithel Cells (Auto) (0-5) /lpf Urine Bacteria (Auto) (Negative) SARS-CoV-2, RNA, NAAT NEGATIVE (NEGATIVE) Diagnostic Findings US gallbladder CLINICAL HISTORY: Nausea and vomiting, elevated bilirubin COMPARISON STUDY: Right upper quadrant ultrasound June 21, 2020. FINDINGS: No hepatic lesions are identified. There has been interval development of moderate intra and extrahepatic biliary ductal dilatation since ultrasound of June 21, 2020. Common bile duct measures 1.1 cm in caliber. No common bile duct calculi are identified although these may be occult by sonography. Multiple gallstones within the gallbladder are noted. No sonographic Campos sign was elicited. The gallbladder is moderately distended. There is minimal gallbladder wall thickening. No pericholecystic fluid is present. Pancreatic body is normal. Head and tail are partially obscured. There is no right hydronephrosis. IMPRESSION: 1. Interval development of moderate intra and extrahepatic biliary ductal dilatation. Although no common bile duct calculi identified, these may be occult by sonography. If indicated, MRCP could be obtained. 2. Cholelithiasis with moderate gallbladder distention. No sonographic Campos sign. Therefore, the findings are not strongly suggestive of acute cholecystitis although a hepatobiliary scan could be obtained if indicated.
[2023-05-28 18:58] LABS: Albumin Globulin Ratio 1.4 (0.9-2); Albumin Level 3.7 gm/dl (3.4-5.0); BUN Creatinine Ratio 12.3 (10-20); Creatinine Clr Calc Pharmacy 69.7 ml/min; Est GFR (African American) 100.8 ml/min; Est GFR (Non-African American) 86.9 ml/min; Globulin 2.7 gm/dl (2.5-4.0); Potassium 3.4 mmol/L (3.5-5.1); Total Protein 6.4 gm/dl (6.0-8.3)
[2023-05-28 19:07] LABS: Partial Thromboplastin Ratio 0.8; Partial Thromboplastin Time 22.8 Seconds (21.0-31.0); Prothrombin Time 10.8 Seconds (9.0-12.0)
[2023-05-28] MEDS ORDERED: POTASSIUM CHLORIDE CRTAB 20 MEQ TABCR PO STA (20:11)
[2023-05-28] MEDS: traZODone HCL 100 MG TAB PO SCH (20:48)
[2023-05-28] MEDS: PANTOprazole 40 MG in SYRINGE 0 ML IV SCH (20:48)
[2023-05-28] MEDS ORDERED: COUGH DROP (SUGAR FREE) LOZ 24 LOZ/1 BOX BUCCAL ONE (20:55)
[2023-05-29] MEDS: PLASMA-LYTE A 1,000 ML IV SCH ×3 (01:54→21:34)
[2023-05-29] MEDS: PIPERACILLIN/TAZOBACTAM 4.5 GM in DEXTROSE 5% 100 ML IV SCH ×3 (01:55→18:48)
[2023-05-29] MEDS ORDERED: MIDAZOLAM HCL 1 MG/ML 2ML VIAL ONE (06:43)
[2023-05-29] MEDS ORDERED: fentaNYL citrate PF 100 MCG/2 ML VIAL ONE ×2 (06:43→09:10)
--- NOTE | 2023-05-29 06:58 | Anesthesiology Consultation ---
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 History Surgery Operation Date: 05/28/23 08:25 Proposed Procedures p Endoscopic Ultrasonography Upper - Lisa Hernandez MD s Endoscopic Retrograde Cholangiopancreato - Lisa Hernandez MD Operation Date: 05/29/23 09:30 Proposed Procedures p Laparoscopic Cholecystectomy - Pedro Serrato MD Height/Weight Height: 5 ft 5 in Weight: 65.6 kg Allergies Allergy/AdvReac Type Severity Reaction Status Date / Time amlodipine Allergy Intermediate edema Verified 11/16/22 14:16 atorvastatin Allergy Intermediate joint pain Verified 11/16/22 14:16 lisinopril Allergy Intermediate cough Verified 11/16/22 14:16 buck Allergy Intermediate rash Verified 11/16/22 14:16 Penicillins Allergy Unknown ? RASH Verified 11/16/22 14:16 CHILD Medications Home Medications Medication Instructions Recorded Confirmed Last Taken cholecalciferol (vitamin D3) 50 2,000 unit PO QPM 04/18/19 05/27/23 02/07/22 mcg (2,000 unit) tablet (Vitamin D3) multivitamin 1 tab PO DAILY 02/22/20 05/27/23 02/08/22 omeprazole 40 mg capsule,delayed 20 mg PO DAILY 09/10/21 05/27/23 02/08/22 release aspirin 81 mg tablet,delayed 81 mg PO DAILY 04/07/22 05/27/23 Unknown release (Adult Low Dose Aspirin) diclofenac sodium 1 % topical gel 2 g topical QID PRN Pain 04/07/22 05/27/23 Unknown losartan 100 mg tablet 100 mg PO DAILY 04/07/22 05/27/23 Unknown sodium chloride 1 gram tablet 1,000 mg PO DAILY 04/07/22 05/27/23 Unknown carvedilol 25 mg tablet 25 mg PO BID 07/20/22 05/27/23 Unknown naproxen sodium [Aleve] 1 tab PO DAILY PRN Pain 07/20/22 05/27/23 Unknown trazodone 50 mg tablet 50 mg PO DAILY 07/20/22 05/27/23 Unknown amlodipine 2.5 mg tablet 2.5 mg PO DAILY 10/26/22 05/27/23 Unknown pravastatin 20 mg tablet 20 mg PO Q OTHER DAY 10/26/22 05/27/23 2 Days Ago ~05/25/23 spironolactone 25 mg tablet 0 mg PO DAILY 10/26/22 11/16/22 Unknown Active Medications Generic Name Dose Route Start Last Admin Trade Name Shelli CURRAN Reason Stop Dose Admin Amlodipine Besylate 2.5 mg 05/28/23 09:00 05/28/23 08:34 Amlodipine Besylate 5 Mg Tab PO 06/27/23 08:59 Not Given DAILY MANUEL Carvedilol 25 mg 05/28/23 08:00 05/28/23 17:50 Carvedilol 25 Mg Tab PO 06/27/23 07:59 25 mg BIDM MANUEL Administration Piperacillin Sod/Tazobactam 120 mls @ 30 mls/hr 05/28/23 02:00 05/29/23 06:10 Sod 4.5 gm/ Dextrose IV 05/30/23 01:59 Infused Q8H MANUEL Infusion Protocol Parenteral Electrolytes 1,000 mls @ 100 mls/hr 05/27/23 18:45 05/29/23 01:54 Plasma-Lyte A Ph 7.4 IV 06/26/23 18:44 100 mls/hr .Q10H MANUEL Administration Pantoprazole Sodium 40 mg/ 10 mls @ 5 mls/min 05/28/23 21:00 05/28/23 20:48 Syringe IV 06/27/23 20:59 5 mls/min BID MANUEL Administration Pravastatin Sodium 20 mg 05/27/23 22:00 05/27/23 22:02 Pravastatin Sod 20 Mg Tab PO 06/26/23 21:59 20 mg Q2D@2100 MANUEL Administration Sodium Chloride 1 gm 05/28/23 09:00 05/28/23 08:34 Sodium Chloride 1 Gm Tablet PO 06/27/23 08:59 Not Given DAILY MANUEL Spironolactone 25 mg 05/28/23 09:00 05/28/23 08:34 Spironolactone 25 Mg Tab PO 06/27/23 08:59 Not Given DAILY AMNUEL Trazodone HCl 100 mg 05/27/23 22:00 05/28/23 20:48 Trazodone Hcl 100 Mg Tab PO 06/26/23 21:59 100 mg HS MANUEL Administration NPO Date Last Intake of Fluids: 05/28/23 Time Last Intake of Fluids: 22:00 Date Last Intake of Solids: 05/28/23 Time Last Intake of Solids: 18:00 Past Medical History Medical History Acute left-sided muscle weakness Bicuspid aortic valve No on 12/06/17 echo. Mild-mod AI. Diverticular disease Fall H/O: CVA (cerebrovascular accident) Pt recalls symptoms ~1974 but not known stroke until noted on brain imaging a few years ago. Hiatal hernia History of anemia Hx of breast cancer RIGHT, S/P LUMPECTOMY, CHEMO AND RADIATION, 2016 Hyperlipidemia Hypertension Hypomagnesemia Intraductal carcinoma of right breast Lab test negative for COVID-19 virus PFO (patent foramen ovale) Pulmonary nodule MONITORED YEARLY WITH CT Stroke Torn rotator cuff RIGHT Past Surgical History Surgical History History of bunionectomy of right great toe History of colonoscopy History of lumpectomy of right breast History of repair of hiatal hernia Hx of hysterectomy TOTAL Social History Smoking Status: Never smoker tobacco type: cigarettes Do You Dip or Chew Tobacco: No Hx Alcohol Use: Yes Alcohol type: wine alcohol intake frequency: holidays/special occasions only Hx Substance Use: No Physical Exam Vital Signs Last Vital Signs Temp 98.4 F 05/28/23 20:46 Pulse 68 05/28/23 20:46 Resp 18 05/28/23 20:46 BP 133/70 05/28/23 20:46 Pulse Ox 97 05/28/23 20:46 O2 Del Method Room Air 05/28/23 20:46 O2 Flow Rate 6 05/28/23 15:30 Testing Laboratory Results 05/28/23 06:37 05/28/23 18:15 PT 10.8 Seconds (9.0-12.0) 05/28/23 18:15 INR 1.0 (0.9-1.1) 05/28/23 18:15 APTT 22.8 Seconds (21.0-31.0) 05/28/23 18:15 Urine Color Dark Yellow 05/27/23 Unknown Urine Appearance Clear (Clear) 05/27/23 Unknown Urine pH 5.5 (4.5-7.5) 05/27/23 Unknown Ur Specific [place] 1.021 (1.000-1.030) 05/27/23 Unknown Urine Protein Negative (Negative) 05/27/23 Unknown Urine Glucose (UA) Negative (Negative) 05/27/23 Unknown Urine Ketones 3+ (Negative) H 05/27/23 Unknown Urine Nitrite Positive (Negative) A 05/27/23 Unknown Ur Leukocyte Esterase Negative (Negative) 05/27/23 Unknown Urine WBC (Auto) 1-5 /hpf (0-5) 05/27/23 Unknown Urine RBC (Auto) 5-10 /hpf (0-4) H 05/27/23 Unknown U Hyaline Cast (Auto) 0 /lpf (0-5) 05/27/23 Unknown U Epithel Cells (Auto) 10-20 /lpf (0-5) H 05/27/23 Unknown Urine Bacteria (Auto) Negative (Negative) 05/27/23 Unknown 05/27/23 17:41 Aerobic Blood Culture - Preliminary Blood No growth in Aerobic bottle after 24 hours. Anaerobic Blood Culture - Preliminary No growth in Anaerobic bottle after 24 hours. 05/27/23 17:58 Aerobic Blood Culture - Preliminary Blood No growth in Aerobic bottle after 24 hours. Anaerobic Blood Culture - Preliminary No growth in Anaerobic bottle after 24 hours. Electrocardiogram Date: 05/27/23 Normal sinus rhythm Normal ECG When compared with ECG of 08-FEB-2022 23:16, No significant change Confirmed by Jaya Hicks ([id number]) on 05/28/2023 11:59:02 AM Echocardiogram Date: 02/09/23 Normal LV size and systolic function. EF 60-65%. No regional wall motion abnormalities. Mild concentric LVH. Mild MR Normal estimated RVSP; RVSP 23 mmHg
[2023-05-29] MEDS ORDERED: ePHEDrine sulfate 50 MG/ML AMP IV PRN (07:03)
[2023-05-29] MEDS ORDERED: ATROPINE SULFATE 0.1 MG/ML 10ML SYR IV PRN (07:03)
[2023-05-29] MEDS ORDERED: BUPIVACAINE/EPINEPHRINE 0.25% 1:200,000 30 ML VIAL ONE (07:10)
[2023-05-29] MEDS ORDERED: ROCURONIUM BROMIDE 10 MG/ML 5 ML VIAL IV ONE (07:48)
[2023-05-29] MEDS ORDERED: DEXAMETHASONE SOD INJ 4 MG/ML VIAL ONE (07:48)
[2023-05-29] MEDS ORDERED: SUGAMMADEX SODIUM 200 MG/2 ML VIAL IV ONE (07:48)
[2023-05-29] MEDS ORDERED: LIDOCAINE 2% 2 ML VIAL/AMP(20MG/ML) INFIL ONE (07:48)
[2023-05-29] MEDS ORDERED: ONDANSETRON INJ 2 MG/ML 2 ML VIAL ONE ×2 (07:48→09:11)
[2023-05-29] MEDS ORDERED: PROPOFOL IV EMULSION 10 MG/ML 20 ML VIAL IV ONE (07:48)
[2023-05-29] MEDS ORDERED: GLYCOPYRROLATE 0.2 MG/ML VIAL ONE (08:22)
--- NOTE | 2023-05-29 08:28 | Operative Report ---
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 A timeout was performed, perioperative antibiotics were administered, SCD boots were placed. After adequate anesthesia and analgesia was obtained, the abdomen was prepped and draped in the normal sterile fashion. Local anesthetic was injected into and around the proposed incision sites. An incision was made with a 15 blade scalpel in the supraumbilical region and carried down to the level of the fascia. The fascia was grasped with a trach hook, and a varies needle was used to enter the abdominal cavity. The abdomen was insufflated to a pressure of 15 mmHg, and a 11 mm trocar was placed in this location. A 10 mm, 30 degree laparoscope was placed into the abdominal cavity, and the abdomen was surveyed. The gallbladder was distended and had a significant amount of acute inflammation. There was no adhesions of the omentum to the gallbladder. Two 5 mm trochars were placed along the right costal margin, and one 5 mm trocar was placed in the subxiphoid region under direct visualization. The gallbladder was grasped and retracted cephalad and laterally, exposing the triangle of Oliver t. Dissection began in the triangle with a combination of blunt dissection with the [place] dissector, and judicious use of the hook cautery. The cystic duct and cystic artery were dissected free circumferentially, and a critical view of safety was obtained. The cystic duct and cystic artery were clipped and transected, and the gallbladder was removed from the gallbladder fossa with the hook cautery. The camera was switched to a 5 mm, the gallbladder was placed in an Endo Catch bag, and removed via the supraumbilical port site. The camera was switched back to the 10 mm camera, and the abdomen was surveyed again. Hemostasis was checked and attended, and was excellent. The abdomen was copiously irrigated and suctioned free. Again hemostasis was checked and was excellent. All trochars were removed under direct visualization. The abdomen was desufflated. The fascia in the 11 mm port site was closed with a 0 Vicryl suture. The skin was closed with a running 4-0 Monocryl subcuticular stitch. Dermabond was applied. The patient tolerated the procedure without complication, and was transferred in stable condition to the PACU. All instrument, needle, and sponge counts were correct at the end of the case. I attest to the content of the Intraoperative Record and any orders documented therein. Any exceptions are noted below.
[2023-05-29] MEDS: ONDANSETRON INJ 2 MG/ML 2 ML VIAL IV PRN ×3 (09:12→19:37)
[2023-05-29] MEDS: fentaNYL citrate PF 100 MCG/2 ML VIAL IV PRN ×3 (09:14→09:29)
--- NOTE | 2023-05-29 09:21 | Hospitalist Progress Note ---
Date of Service May 29, 2023 Assessment & Plan (1) Abdominal pain: Plan: Mrs. Sepulveda is an 83 yo F who was admitted on 05/27/23 for abdominal pain. - secondary to choledocholithiasis - s/p ERCP on 05/28/23 and had complete stone removal. A plastic biliary stent w as placed in the common bile duct. - s/p laparoscopic cholecystomy on 05/29/23 without complication - gen surg following, appreciate recs - Day 3 of Zosyn - clear liquid diet --> advancing as tolerated; Continue IV support at 100 mL/h - Pain control with Tylenol for mild pain, Percocet for moderate pain and IV Dilaudid for severe - Zofran prn for nausea (2) Electrolyte imbalance: Plan: - Na is chronically low at 132. - K normalized today at 4.2. - magnesium normal today at 2.0 2.0 (3) Transaminitis: Plan: - Secondary to choledocholithiasis - AST/ALT trending down; follow (4) Hemiparesis affecting left side as late effect of cerebrovascular accident: Plan: Chronic with no acute changes Patient resides at [facility] PT/OT if required by [facility] prior to discharge (ordered on 05/29/23) (5) Hypertension: Plan: - chronic Continue home medications (6) Bicuspid aortic valve: Plan: Continue outpatient management Plan Follow-up with surgery in the morning Discharge back to [facility] when stable Admission and Anticipated Discharge Date Admission Date: May 27, 2023 Subjective Patient doing well -- was worried about her BP being too high earlier in the day, now relieved to know it has come down. Tolerating clear liquid diet well Review of Systems Review of Systems: All systems reviewed & are unremarkable except as noted in HPI & below Physical Exam Physical Exam: Constitutional: WD/WN, vitals as above Eyes: PERRL, conjunctivae normal, anicteric sclerae ENMT: external ear and nose normal, oropharynx normal Neck: trachea midline Respiratory: normal respiratory effort, lungs clear to auscultation Cardiovascular: RRR, no murmur, no edema Heart Sounds: normal S1 and normal S2 Gastrointestinal (Abdomen): Inspection/Auscultation: + abdomen distended, normal bowel sounds and + abdominal wall ecchymosis (around laparoscopic incision sites ) Percussion/Palpation: + abdomen tender (minimal) and abdomen soft; no guarding Musculoskeletal: Head/Neck/Chest: normocephalic and head atraumatic Skin: no rashes, warm and dry Neurologic: moves all extremities Psychiatric: A+Ox3, euthymic affect Results & Data Results & Data Vital Signs (Past 12 Hours) Vital Signs Temp Pulse Resp BP Pulse Ox O2 Del Method O2 Flow Rate 05/29/23 09:05 36.3 C L 83 22 171/91 H 97 Oxymask 6 05/29/23 08:55 88 23 165/88 H 97 Oxymask 6 05/29/23 08:45 88 20 163/93 H 98 Oxymask 6 05/29/23 08:36 36.2 C L 95 H 23 159/84 H 95 Oxymask 8 PG Care Time/CCT Total # of Minutes Spent Total Time Spent with Patient: Total time spent is greater than 50% in coordination of care (as documented) at patient's floor/unit and/or counseling patient: Coding [place] [address] SUB INP/OBS CARE 2/35MIN Patient Type Established Diagnoses Abdominal pain R10.9 Electrolyte imbalance E87.8 Transaminitis R74.01 Hemiparesis affecting left side as late effect of cerebrovascular accident I69.354 Hypertension I10 Hypertension type: primary hypertension Bicuspid aortic valve Q23.1 (5) Hypertension Hypertension type: primary hypertension Qualified Code(s): I10 - Essential (primary) hypertension
--- NOTE | 2023-05-29 09:51 | Anesthesiology Progress Note ---
Date of Service May 29, 2023 Anesthesia Post Procedure Vital Signs Vital Signs: Temp Pulse Pulse Resp BP Pulse Ox O2 Del Method 05/29/23 09:45 97.3 F L 66 12 140/67 97 Nasal Cannula 05/29/23 09:35 67 20 151/71 H 96 Nasal Cannula 05/29/23 09:25 76 15 153/77 H 97 Nasal Cannula 05/29/23 09:15 79 21 175/73 H 97 Oxymask 05/29/23 09:05 97.3 F L 83 22 171/91 H 97 Oxymask 05/29/23 08:55 88 23 165/88 H 97 Oxymask 05/29/23 08:45 88 20 163/93 H 98 Oxymask 05/29/23 08:36 97.2 F L 95 H 23 159/84 H 95 Oxymask 05/28/23 20:15 Room Air 05/28/23 20:46 98.4 F 68 18 133/70 97 Room Air 05/28/23 17:43 97.5 F L 66 16 148/77 H 96 Room Air 05/28/23 16:35 97.9 F 67 16 146/76 H 95 Room Air 05/28/23 16:15 98.4 F 69 20 149/73 H 96 Room Air 05/28/23 15:40 77 20 140/74 98 Room Air 05/28/23 15:50 68 18 142/79 H 96 Room Air 05/28/23 15:30 76 18 136/72 98 Oxymask 05/28/23 15:25 97.3 F L 94 H 17 127/67 99 Oxymask 05/28/23 13:24 98.2 F 68 20 148/66 H 97 Room Air O2 Flow Rate 05/29/23 09:45 2 05/29/23 09:35 2 05/29/23 09:25 2 05/29/23 09:15 2 05/29/23 09:05 4 05/29/23 08:55 6 05/29/23 08:45 6 05/29/23 08:36 8 05/28/23 20:15 05/28/23 20:46 05/28/23 17:43 05/28/23 16:35 05/28/23 16:15 05/28/23 15:40 05/28/23 15:50 05/28/23 15:30 6 05/28/23 15:25 6 05/28/23 13:24 Pain Intensity Upper Abdomen: Pain Intensity: 5 Abdomen: Pain Intensity: 3 Transfer of Care Handoff Completed per policy Notes Mental Status: alert / awake / arousable and participated in evaluation Patient Amnestic to Procedure: Yes Nausea / Vomiting: adequately controlled Pain: adequately controlled Airway Patency, RR, SpO2: stable & adequate BP & HR: stable & adequate Hydration State: stable & adequate Anesthetic Complications: no major complications apparent and Pt Satisfied with anesthetic care
[2023-05-29] MEDS ORDERED: diphenhydrAMINE Capsule 25 MG CAP PO PRN (10:08)
[2023-05-29 10:32] LABS: Hematocrit (blood only) 35.3 % (37.0-47.0); Hemoglobin 11.9 g/dl (12.0-16.0); Mean Corpuscular Hemoglobin 30.4 pg (25.0-34.0); Mean Corpuscular Hgb Conc 33.7 g/dL (32.0-36.0); Mean Corpuscular Volume 90.3 fL (80.0-100.0); Mean Platelet Volume 9.2 fL (9.4-12.4); Platelet Count 270 K/uL (130-400); RDW Coefficient of Variation 12.9 % (11.5-14.5); RDW Standard Deviation 42.7 fL (36.4-46.3); Red Blood Count 3.91 M/uL (4.20-5.40); White Blood Count 8.18 K/ul (4.8-10.8)
[2023-05-29] MEDS: carvediloL 25 MG TAB PO SCH ×2 (10:36→17:23)
[2023-05-29] MEDS: PANTOprazole 40 MG in SYRINGE 0 ML IV SCH ×2 (10:36→21:34)
[2023-05-29] MEDS: SODIUM CHLORIDE 1 GM TABLET PO SCH (10:36)
[2023-05-29] MEDS: amLODIPine BESYLATE 5 MG TAB PO SCH (10:37)
[2023-05-29] MEDS: SPIRONOLACTONE 25 MG TAB PO SCH (10:40)
[2023-05-29 10:52] LABS: Albumin Level 3.3 gm/dl (3.4-5.0); BUN Creatinine Ratio 10.7 (10-20); Bilirubin Direct 0.4 mg/dl (0-0.2); Bilirubin,Total 1.2 mg/dl (0.2-1.0); Calcium 8.8 mg/dl (8.6-10.3); Creatinine Clr Calc Pharmacy 70.9 ml/min; Est GFR (African American) 101.3 ml/min; Est GFR (Non-African American) 87.4 ml/min; Potassium 4.2 mmol/L (3.5-5.1); Total Protein 5.7 gm/dl (6.0-8.3)
[2023-05-29] MEDS: oxyCODONE/ACETAMINOPHEN 5mg/325mg TAB PO PRN (14:53)
[2023-05-29] MEDS ORDERED: ACETAMINOPHEN 500 MG TAB PO PRN (16:34)
[2023-05-29] MEDS ORDERED: HYDROmorphone INJ 0.5 MG/0.5 ML SYR IV PRN (16:35)
[2023-05-29] MEDS: traZODone HCL 100 MG TAB PO SCH (21:34)
[2023-05-29] MEDS: PRAVASTATIN SOD 20 MG TAB PO SCH (21:34)
[2023-05-30] MEDS: oxyCODONE/ACETAMINOPHEN 5mg/325mg TAB PO PRN (06:30)
[2023-05-30] MEDS: ONDANSETRON INJ 2 MG/ML 2 ML VIAL IV PRN (06:30)
[2023-05-30] MEDS: PLASMA-LYTE A 1,000 ML IV SCH (06:31)
[2023-05-30 07:34] LABS: Hemoglobin 10.9 g/dl (12.0-16.0); Mean Corpuscular Hemoglobin 30.3 pg (25.0-34.0); Mean Corpuscular Hgb Conc 34.1 g/dL (32.0-36.0); Mean Corpuscular Volume 88.9 fL (80.0-100.0); Platelet Count 279 K/uL (130-400); RDW Coefficient of Variation 12.5 % (11.5-14.5); RDW Standard Deviation 40.8 fL (36.4-46.3); White Blood Count 7.17 K/ul (4.8-10.8)
[2023-05-30 07:36] VITALS: BP 145/81; TEMP 97.7; O2SAT 98
[2023-05-30 08:26] VITALS: PULSE 79
[2023-05-30] MEDS: amLODIPine BESYLATE 5 MG TAB PO SCH (08:27)
[2023-05-30] MEDS: SODIUM CHLORIDE 1 GM TABLET PO SCH (08:27)
[2023-05-30] MEDS: carvediloL 25 MG TAB PO SCH (08:28)
[2023-05-30] MEDS: PANTOprazole 40 MG in SYRINGE 0 ML IV SCH (08:28)
[2023-05-30] MEDS: SPIRONOLACTONE 25 MG TAB PO SCH (08:28)
[2023-05-30 08:31] LABS: Albumin Globulin Ratio 1.3 (0.9-2); Albumin Level 2.9 gm/dl (3.4-5.0); BUN Creatinine Ratio 10.3 (10-20); Bilirubin,Total 0.7 mg/dl (0.2-1.0); Calcium 8.5 mg/dl (8.6-10.3); Creatinine Clr Calc Pharmacy 68.5 ml/min; Est GFR (African American) 100.2 ml/min; Est GFR (Non-African American) 86.4 ml/min; Globulin 2.2 gm/dl (2.5-4.0); Potassium 3.9 mmol/L (3.5-5.1); Total Protein 5.1 gm/dl (6.0-8.3)
--- NOTE | 2023-05-30 10:08 | Discharge Summary ---
Discharge Summary Date of Service May 30, 2023 Notes For Next Care Provider Needs ERCP for CBD stent removal in 3 months Remain on Protonix bid x 2 months for clipped stomach polyp Follow up with Surgery in 2 weeks Follow upon pathology from stomach polyp and gallbladder after discharge Increased size in pulmonary nodule but patient declines at this time for further follow up Medication Changes From Visit Protonix 40mg po bid x 2 months, then resume once daily Percocet 1 tab po q4h prn pain Admission HPI Per Admitting Provider Kendal Sepulveda is an 83-year-old female with a past medical history of CVA with baseline left-sided paresis Who has had nausea and vomiting for 4 days. Has not tolerated p.o. intake, has abdominal comfort which radiates into her chest. She has a leukocytosis of 11 in the setting of vomiting, neutrophilic predominant without left shift. Tea reports sx started Wednesday. No BM that day and didn't feel well with + nausea. Had some tomato bisque which upset her stomach and caused her to vomit. Wednesday night then got very nauseus with ab pain post dinner and vomited again (no blood/bile). Wednesday was playing cards after thearp and got very nauseus and vomited 6x after eaching a little bit of food. Did not eat at all du eto an upset stomach. This morning continued to feel poor with dry heaves, worse after just dry toast so talked to PCP. Was found to have transaminitis --> referred to the ER. Last bowel movement was Wednesday. BMs have been more yellowish than normal, no white or joy colored stools. Endorses abdominal pain in her low mid chest and somewhat on the left and right side. This does radiate up into her chest intermittently with a feeling of pressure in her abdomen, does not have shoulder pain or neck pain. Denies shortness of breath. Denies history of NV L hemiparesis at baseline. uses electric wheelchair at [facility].Had intact sensation in L side, but no movement. Notes that she has had gallstones in the past although has never had an episode like this. Would like her gallbladder removed if possible. Medical History: Reviewed Medications: Reviewed Surgical History: Reviewed Family history: Reviewed Allergies: Reviewed. He is not a good historian of her allergies, reports what ever is in the EMR is correct Social History: Denies tobacco/etoh use Code Status: DNR/DNI, discussed with patient at bedside Principal Dx & Hospital Course #1 = Principal Diagnosis (1) Choledocholithiasis: Mrs. Sepulveda is an 83 yo F who was admitted on 05/27/23 for abdominal pain, found to have elevated LFTs in an obstructive pattern, choledocholithiasis and acute cholecystitis - s/p ERCP on 05/28/23 and had complete stone removal. A plastic biliary stent was placed in the common bile duct and this will need to be removed in 3 months - s/p laparoscopic cholecystomy on 05/29/23 without complication -tolerating regular diet, percocet prn pain, needs outpatient Surgery f/u in 2 weeks -received 3 days of Zosyn but no further abx needed now that gallbladder removed -had gastric polyp removed during EGD-needs f/u on pathology and remain on PPI bid x 2 months (2) Acute cholecystitis: as above resolved (3) Electrolyte imbalance: - Na is chronically low at 132 but improved to 135 by day of discharge K and Mag also now normalized and low due to GI losses fromN/V, poor po intake hyponatremia could be from aldactone use continue home po NaCL and consider dc aldactone as outpt (4) Hemiparesis affecting left side as late effect of cerebrovascular accident: Chronic with no acute changes Patient resides at [facility] PT/OT if required by [facility] prior to discharge (ordered on 05/29/23) continue ASA, statin has loop recorder in place with no known atrial arrhythmias noted thus far as per review of Cardiology notes continue BP control (5) Hypertension: - chronic , BPs mildly elevated here since losartan was held-restart on discharge along with home Coreg, amlodipine consider dc aldactone as above (6) Bicuspid aortic valve: Continue outpatient management (7) Pulmonary nodule: increased in size here on CXR to 1.[address] chest 2019 in this system pt aware and was following with outpt PULM at [facility]-has decided no further f/u and does not want to know if she has lung CA and if she does, would not want treatment for such Plan Dispo-dc to [facility] today Discharge Exam Constitutional WD/WN, vitals as above Respiratory normal respiratory effort, lungs clear to auscultation Cardiovascular RRR, no murmur, no edema Gastrointestinal (Abdomen) Inspection/Auscultation: normal bowel sounds; + abdomen abnormal to inspection (incisions with Dermabond look good) and abdomen not distended Percussion/Palpation: + abdomen tender (mild at incision sites) and abdomen soft; no guarding and abdomen not rigid Neurologic + focal motor deficit (left hemiparesis); not confused Updated Medication List Medication Instructions Recorded Confirmed Type cholecalciferol (vitamin D3) 50 2,000 unit PO QPM 04/18/19 05/27/23 History mcg (2,000 unit) tablet (Vitamin D3) multivitamin 1 tab PO DAILY 02/22/20 05/27/23 History aspirin 81 mg tablet,delayed 81 mg PO DAILY 04/07/22 05/27/23 History release (Adult Low Dose Aspirin) diclofenac sodium 1 % topical gel 2 g topical QID PRN Pain 04/07/22 05/27/23 History losartan 100 mg tablet 100 mg PO DAILY 04/07/22 05/27/23 History sodium chloride 1 gram tablet 1,000 mg PO DAILY 04/07/22 05/27/23 History carvedilol 25 mg tablet 25 mg PO BID 07/20/22 05/27/23 History naproxen sodium [Aleve] 1 tab PO DAILY PRN Pain 07/20/22 05/27/23 History amlodipine 2.5 mg tablet 2.5 mg PO DAILY 10/26/22 05/27/23 History pravastatin 20 mg tablet 20 mg PO Q OTHER DAY 10/26/22 05/27/23 History spironolactone 25 mg tablet 0 mg PO DAILY 10/26/22 11/16/22 History acetaminophen 500 mg tablet 1,000 mg PO Q8H PRN pain #60 tabs 05/30/23 Rx (Tylenol Extra Strength) oxycodone-acetaminophen 5 mg-325 1 tab PO Q4H PRN moderate-severe 05/30/23 Rx mg tablet (Percocet) pain #10 tabs pantoprazole 40 mg tablet,delayed 40 mg PO BID #60 tabs 05/30/23 Rx release trazodone 50 mg tablet 100 mg PO HS #60 tabs 05/30/23 05/27/23 Rx Hospital Stay Data Consultations 05/27/23 17:13 ED Decision to Admit Stat 05/27/23 21:01 Consult Gastroenterology Routine 05/28/23 13:59 Consult General Surgery Routine Procedures Performed Operation Date: 05/29/23 09:30 Actual Procedures p Laparoscopic Cholecystectomy(Not Applicable) - Pedro Serrato MD Diagnostic Imagining Performed 05/27/23 15:19 US gallbladder Stat 05/28/23 [place] ERCP biliary ductal Routine 05/28/23 10:32 US upper EUS PACS images Routine Pending Results Patient Have Any Pending Studies at Discharge: Yes (Pathology from stomach polyp and gallbladder) Discharge Instructions Given to Patient (Per Discharging Provider) Please continue on the protonix twice a day for 2 months for the stomach polyp that was removed. The biopsy results were still pending at the time of discharge. You had your gallbladder removed-please follow instructions for post-operative limitations as per the Surgeon. You will need to have the bile duct stent removed in 3 months with GI. Your pulmonary nodule has increased in size since the last CT scan of the chest. You should follow up with a [facility] for this and have a repeat CT scan of the chest. Total Time Total Time Spent Total Time Spent (In Minutes): 35 min Total Time Includes: Examination of the Patient, Discharge Planning, Medication Reconciliation and Communication With Other Providers (Surgeon Dr. Serrato) Coding Level of Care Code 79166 INP/OBS DISCH >30 MIN Diagnoses Choledocholithiasis K80.50 Acute cholecystitis K81.0 Electrolyte imbalance E87.8 Hemiparesis affecting left side as late effect of cerebrovascular accident I69.354 Hypertension I10 Hypertension type: primary hypertension Bicuspid aortic valve Q23.1 Pulmonary nodule R91.1
--- NOTE | 2023-05-30 11:36 | Surgery Progress Note ---
Date of Service May 30, 2023 Assessment & Plan (1) Acute cholecystitis: (2) Choledocholithiasis: Plan POD #2 s/p ERCP; POD #1 s/p lap cholecystectomy Doing well Advance diet as tolerated DVT prophylaxis with SCDs and Lovenox Aggressive pulmonary toilet May be discharged to home today from surgical standpoint Admission and Anticipated Discharge Date Admission Date: May 27, 2023 Subjective Doing well this morning. No pain. Tolerating clears. No nausea or vomiting. No fevers. Physical Exam Physical Exam: AFVSS NAD, A&O x3 Abdomen: Soft, minimal tenderness Incisions healing without erythema or discharge Dermabond in place Results & Data Vital Signs (Past 12 Hours) Vital Signs Temp Pulse Resp BP Pulse Ox O2 Del Method 05/30/23 08:26 79 05/30/23 07:34 36.5 C 59 L 17 145/81 H 98 Room Air 05/30/23 03:30 36.4 C L 73 16 148/81 H 94 Room Air
[2023-05-30] MEDS ORDERED: PANTOprazole 40 MG TAB PO SCH (21:00)
== END 2023-05-30 13:12 ==
LOC: ED 13:43 → 3N 18:34 → INTOOBSV 18:34 → SUATTDRO 18:34 → 3N 20:54